=== PATIENT | female | born 1940 | race Caucasian/White ===

== ENCOUNTER 2020-11-14 22:11 | Emergency (ER) | payer MEDICARE, MEDICAID, SELFPAY ==
[2020-11-14 22:34] VITALS: BP 157/76; PULSE 72; RESP 18; TEMP 36.7; O2SAT 95; BMI 23.3
--- NOTE | 2020-11-14 23:15 | W.ED.EXTPRO ---
HPI - Extremity Problem General: Chief complaint: Extremity Problem,Nontraumatic Stated complaint: LEG CRAMPS Time Seen by Provider: 11/14/20 23:09 History of Present Illness: HPI Narrative: Patient complaining about chronic lower leg cramps. They have been worse today. Patient has history of chronic low back pain. Patient did arrive by ambulance. MD Complaint: extremity pain Onset (ago): year(s) Pain Consistency: now resolved Location: left, right and lower extremity Severity scale (1-10): 4 Quality: other (Cramping in the calves at times) Radiation: none Relieving factors: nothing Exacerbating factors: range of motion Associated symptoms: Reports no associated symptoms; Deny chest pain, fever(s) or rash Review of Systems Const: Denies: fever(s), chills or body aches Eyes: Denies: change in vision or blurry vision ENMT: Denies: throat pain or nasal congestion Card: Denies: chest pain or dyspnea on exertion Resp: Denies: dyspnea, productive cough or non-productive cough GI: Denies: abdominal pain, nausea or vomiting Musc: Reports: extremity pain and muscle cramps Skin/Breast: Denies: rash Neuro: Denies: headache(s) Psych: Denies: anxiety or depression Kuldeep/Lymph: Denies: easy bruising PFSH ED PFSH: Family History (Updated 07/03/20 @ 11:39 by Kat Parikh LPN) Mother Heart disease Hypertension Stroke Other Diabetes Physical Exam Const: COMMON NORMALS: no acute distress, average body habitus and patient oriented x3 HENMT: COMMON NORMALS: normocephalic HEAD & SCALP: normal to inspection and normocephalic FACE & SINUS: normal facial exam Eye: COMMON NORMALS: conjunctivae normal GENERAL EYE: appearance normal, both eyes and all related structures CONJUNCTIVA: Yes conjunctivae normal Neck/C-Spine: COMMON NORMALS: no JVD Chest: COMMONS NORMALS: normal inspection of the chest Resp: COMMON NORMALS: normal respiratory effort and clear to auscultation bilaterally AUSCULTATION: clear to auscultation bilaterally Cardio: COMMON NORMALS: no JVD and regular rate RATE: regular rate GI: COMMON NORMALS: Normal to inspection, nondistended, normoactive bowel sounds present Extremity: COMMON NORMALS: normal to inspection and full ROM NARRATIVE EXTREMITY EXAM: Mild bilateral calf tenderness no swelling edema or erythema noted Neuro: COMMON NORMALS: patient oriented x3 Course Vital Signs: Vital signs: Vital Signs Temperature 98.0 F 11/14/20 22:34 Pulse Rate 72 11/14/20 22:34 Respiratory Rate 18 11/14/20 22:34 Blood Pressure 157/76 11/14/20 22:34 Pulse Oximetry 95 11/14/20 22:34 MDM - Extremity (Nontraumatic) MDM Narrative: Medical decision making narrative: Labs look good. Medications help patient's cramps patient will follow up with primary care provider and establish 1 first. Lab Data: Labs: Lab Results 11/14/20 11/14/20 Range/Units 23:20 23:20 WBC 9.9 (4.0-10.0) 10^3/ uL RBC 4.76 (4.1-5.3) 10^6/u L Hgb 14.8 (11.5-15.3) g/dL Hct 46.1 (37.0-47.0) % MCV 96.8 (81-99) fL MCH 31.1 (28.0-34.0) pg MCHC 32.1 (30.0-36.0) g/dL RDW 13.7 (12.1-15.1) % Plt Count 209 (130-400) 10^3/c mm MPV 11.5 H (7.4-10.4) fL Neut % (Auto) 75.9 % Lymph % (Auto) 13.2 % [place] % (Auto) 8.6 % Eos % (Auto) 1.0 % Baso % (Auto) 0.9 % Neut # (Auto) 7.54 (1.8-7.7) 10^3/u L Lymph # (Auto) 1.3 (0.8-4.8) 10^3/u L [place] # (Auto) 0.9 (0.2-0.9) 10^3/u L Eos # (Auto) 0.1 (0.0-0.8) 10^3/u L Baso # (Auto) 0.1 (0.0-0.1) 10^3/u L Nucleated RBC % (a uto) 0 % Nucleated RBCs # 0.0 /100WBC Sodium 136 (136-145) mmol/L Potassium 4.1 (3.5-5.1) mmol/L Chloride 104 (98-107) mmol/L Carbon Dioxide 25 (22-29) mmol/L Anion Gap 11.1 (5-19) BUN 23 (8-23) mg/dL Creatinine 0.8 (0.5-0.9) mg/dL GFR Calculation Not Reportable Glucose 104 (65-115) mg/dL Calculated Osmolal ity 286 (285-295) mOsm/k g Calcium 8.5 (8.5-10.5) mg/dL Discharge Plan Discharge Prescriptions: No Action simvastatin 20 mg tablet 20 mg PO DAILY 90 Days Qty: 90 RF: 3 potassium chloride 10 mEq tablet extended release 10 meq PO DAILY Qty: 30 RF: 1 Coding Level of Care Code ED Loading Unit Operator Powder Charging for Chg Fwd Exam Comprehensive
[2020-11-14] MEDS: cyclobenzaprine 10 mg Tablet 5 MG PO (23:18)
[2020-11-14 23:51] LABS: Basophils # 0.1 10^3/uL (0.0-0.1); Basophils % 0.9 %; Eosinophils # 0.1 10^3/uL (0.0-0.8); Hematocrit 46.1 % (37.0-47.0); Hemoglobin 14.8 g/dL (11.5-15.3); Lymphocytes # 1.3 10^3/uL (0.8-4.8); Lymphocytes % 13.2 %; Mean Corpuscular HGB Conc 32.1 g/dL (30.0-36.0); Mean Corpuscular Hemoglobin 31.1 pg (28.0-34.0); Mean Corpuscular Volume 96.8 fL (81-99); Mean Platelet Volume 11.5 fL (7.4-10.4); Monocytes # 0.9 10^3/uL (0.2-0.9); Monocytes % 8.6 %; Neutrophils # 7.54 10^3/uL (1.8-7.7); Neutrophils % 75.9 %; Nucleated Red Blood Cells % 0 %; Platelet Count 209 10^3/cmm (130-400); Red Blood Count 4.76 10^6/uL (4.1-5.3); Red Cell Distribution Width 13.7 % (12.1-15.1); White Blood Count 9.9 10^3/uL (4.0-10.0)
[2020-11-15 00:30] LABS: Anion Gap 11.1 (5-19); Blood Urea Nitrogen 23 mg/dL (8-23); Calcium 8.5 mg/dL (8.5-10.5); Carbon Dioxide 25 mmol/L (22-29); Chloride 104 mmol/L (98-107); Glucose 104 mg/dL (65-115); Osmolality Calculated 286 mOsm/kg (285-295); Potassium 4.1 mmol/L (3.5-5.1); Sodium 136 mmol/L (136-145)
[2020-11-15 00:45] VITALS: BP 157/76; PULSE 72; RESP 18; TEMP 36.7; O2SAT 95
== END 2020-11-15 00:47 | disposition home or self-care (01) ==
PROVIDERS: Emergency Provider Nurse Practitioner Family; PCP Registered Nurse
DX: R25.2 Cramp and spasm (principal)
CPT/HCPCS: 80048; 85025; 99283

== ENCOUNTER 2021-03-20 03:52 | Inpatient (IN) | payer MEDICARE, SELFPAY ==
[2021-03-20] VITALS (15 sets, daily range): BP systolic 165–207; BP diastolic 68–86; PULSE 47–73; RESP 16–25; TEMP 36.1–36.7; O2SAT 93–96; BMI 16.9
--- NOTE | 2021-03-20 | USCV_ITS ---
LE Arterial Duplex LEFT Carine Cadena Age: 80 Gender: F : 1940 Exam Date: 03/20/2021 05:11 Ordering Phys: Julian Conn MD Technologist: Nataly Edmondson Exam Location: [facility] [place] Indication: PAININ LT FOOT AND LOWER LEG Risk Factors: Unknown Previous Vascular Surgery: STENT ON RT RIGHT LEFT BP: 180.0 / BP: 187.0/ 0 0 Waveform Velocity (cm/s) Velocity (cm/s) Waveform Iliac Prox 60.5 Monophasic Iliac Mid 21.8 Monophasic Iliac Distal 21.8 Monophasic INSIGHT LEADER 32.2 Monophasic POP 35.0 Monophasic FINDINGS LT PROFUNDA HAS FLOW. Low velocity, delayed peaking continuous monophasic waveforms in the left iliac, common femoral and profundofemoral artery. No Doppler flow signals were noted in the superficial femoral artery. Low velocity, monophasic continuous waveform also was noted in the left popliteal artery. No Doppler flow signals in the posterior tibial and dorsalis pedis arteries. CONCLUSIONS 1. Features of possible high-grade stenosis in the proximal left common iliac /aortoiliac segment with a collateral filling in the iliac and common femoral arteries. 2. 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 3. Features of collateral filling the popliteal artery with no Doppler flow signals in the infrapopliteal vessels. RANJAN on the left side was not obtained Dr Vel Contreras MD [facility] (Electronically Signed) Final Date: 20 March 2021 19:03 S
--- NOTE | 2021-03-20 04:26 | ED_ITS ---
HPI - Extremity Problem General: Chief complaint: Extremity Injury, Lower Stated complaint: Leg Cramps\Back Cramps\ Time Seen by Provider: 03/20/21 04:12 Source: patient Mode of arrival: ambulatory Limitations: no limitations History of Present Illness: HPI Narrative: 80-year-old female states she has been having pain in her legs over the last year. States she had increasing pain in her left lower leg and foot. States it is cramping in nature and worse with walking. States improved with rest. Denies any recent injuries denies any fevers. Denies any radiation of her pain. States pain currently while laying down is a 2 out of 10. Associated symptoms: Deny chest pain, fever(s) or rash Review of Systems Const: Denies: fever(s), chills, body aches or change in appetite Eyes: Denies: blurry vision or eye discomfort ENMT: Denies: throat pain or dental pain Card: Denies: chest pain Resp: Denies: dyspnea GI: Denies: abdominal pain, nausea, vomiting or diarrhea : Denies: dysuria Musc: Reports: extremity pain Skin/Breast: Denies: rash Neuro: Denies: headache(s) Psych: Denies: depression Kuldeep/Lymph: Denies: easy bruising All/Imm: Denies: urticaria PFSH ED PFSH: Family History (Updated 07/03/20 @ 11:39 by Kat Parikh RN) Mother Heart disease Hypertension Stroke Other Diabetes Physical Exam Const: COMMON NORMALS: no acute distress, patient oriented x3 and healthy appearing HENMT: COMMON NORMALS: normocephalic and atraumatic HEAD & SCALP: normocephalic and atraumatic Eye: COMMON NORMALS: Equal, round and reactive pupils present and EOMs intact bilaterally PUPIL: Yes Equal, round and reactive pupils present Neck/C-Spine: COMMON NORMALS: full ROM and supple Chest: COMMONS NORMALS: normal inspection of the chest and normal palpation of entire chest wall Resp: COMMON NORMALS: normal respiratory effort, No retractions, No use of accessory muscles and clear to auscultation bilaterally AUSCULTATION: clear to auscultation bilaterally Cardio: COMMON NORMALS: regular rate, regular rhythm and No murmurs present (Cardio) RATE: regular rate RHYTHM: regular rhythm GI: COMMON NORMALS: Normal to inspection, nondistended, normoactive bowel sounds present, Soft to palpation, non-tender and no masses PALPATION: Yes Soft to palpation Extremity: COMMON NORMALS: normal to inspection and full ROM Neuro: COMMON NORMALS: patient oriented x3, moves all extremities and no focal motor deficits Psych: COMMON NORMALS: mental status grossly normal, Normal thought process present and cooperative THOUGHT PROCESS: Normal thought process present Skin: COMMON NORMALS: no rashes or lesions noted and no wounds GENERAL SKIN EXAM: no rashes or lesions noted Course Vital Signs: Vital signs: Vital Signs Temperature 97.7 F 03/20/21 04:00 Pulse Rate 55 L 03/20/21 04:20 Respiratory Rate 16 03/20/21 04:00 Blood Pressure 165/78 03/20/21 04:00 Pulse Oximetry 94 03/20/21 04:00 MDM - Extremity (Nontraumatic) MDM Narrative: Medical decision making narrative: Patient presents here with pain in her left leg was able to get any Doppler pulses in her foot was cold on exam. Did get an arterial duplex study that showed occlusion of her SFA with slight flow in the popliteal the no flow in the posterior tib or dorsalis pedis. I spoke to Dr. Medina of cardiology and will admit on heparin drip and he is likely to take her to the [facility] later today. Discharge Plan Discharge Patient Disposition: Admitted As Inpatient Clinical Impression: Ischemic leg Condition: Stable Coding Level of Care Code ED Electronic Equipment Maint Tech for Narciso Fall Exam Comprehensive
[2021-03-20] MEDS: HYDROcodone-acetaminophen 5-325 mg Tablet 1 TAB PO ×2 (04:31→21:04)
[2021-03-20 06:00] LABS: Basophils # 0.1 10^3/uL (0.0-0.1); Basophils % 0.9 %; Eosinophils # 0.1 10^3/uL (0.0-0.8); Eosinophils % 1.5 %; Hematocrit 44.7 % (37.0-47.0); Hemoglobin 14.2 g/dL (11.5-15.3); Mean Corpuscular HGB Conc 31.8 g/dL (30.0-36.0); Mean Corpuscular Hemoglobin 31.1 pg (28.0-34.0); Mean Corpuscular Volume 97.8 fl (81-99); Mean Platelet Volume 11.6 fL (7.4-10.4); Monocytes # 0.5 10^3/uL (0.2-0.9); Monocytes % 6.2 %; Neutrophils # 5.91 10^3/uL (1.8-7.7); Neutrophils % 67.9 %; Nucleated Red Blood Cells % 0 %; Platelet Count 163 10^3/cmm (130-400); Red Blood Count 4.57 10^6/uL (4.1-5.3); Red Cell Distribution Width 13.5 % (12.1-15.1); White Blood Count 8.7 10^3/uL (4.0-10.0)
[2021-03-20] MEDS: heparin 5,000 unit/mL INJ 1 mL 2400 UNIT IVP (06:03)
[2021-03-20] MEDS: heparin drip 25,000 UNIT/500 ML PREMIX 13.34 UNIT IV (06:05)
[2021-03-20 06:11] LABS: INR 0.95 (0.8-1.2)
--- NOTE | 2021-03-20 06:15 | PM.HP ---
Providers/Chief Complaint Admitting Physician: Leana Islas MD Primary Care Provider: JUAN Hood Chief Complaint: Leg Cramps\Back Cramps\ History of Present Illness Carine Cadena is a 80 year old female who presented to the emergency room with chief complaint of severe pain in her left lower extremity. She has history of peripheral artery disease and severe claudication of the left lower extremity for some time. Last arteriogram was in December 2018 as shown below. The left leg always gives her difficulty but usually it is manageable. She takes muscle relaxers when the pain bothers her. She remains on statin therapy but admits that she only takes aspirin intermittently. She is not chronically on any antiplatelet therapy otherwise. She continues to smoke. This evening the pain in her left foot was severe, much more so than normal. She rated it an 11 out of 10 at its worst. She was unable to get relief from anything and simply touching the foot caused pain. It was also cool. She came to the emergency room for further evaluation. In the ER arterial Doppler showed limited if any flow below the SFA according to verbal report from the ER provider. I do not have the official report currently. She has had some improvement in pain with hydrocodone. She has been started on a heparin drip. Dr. Wilkes has been consulted. He has seen her in the past and performed her previous evaluations and interventions. Pain radiates up into her left hip and back when it is severe. Denies recent fever. Has no recent change and respiratory status with a chronic cough. No chest pain. No recent issues with bleeding. Hospitalist were called for admission. LAST arteriogram from 12/[address] Wilkes Diagnostic Cath Status: Elective Diagnostic Findings No significant disease noted in the Left Main, LAD, Circumflex, or RCA coronary arteries. Coronary angiography shows right dominance. Conclusions Peripheral Procedure Description: Severe life style limiting claudication of both legs and feet more in left than right and foot despite ofoptimization of medical therapy Severe claudication with proximal left external iliac and mid left SFA segment . Gates grade II, category 4:Cori stage III. 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 Previously unsuccessful attempt was made through antegrade approach from right common femoral artery. Today patient was brought in for retrograde popliteal approach.Using retrograde left popliteal approach extensive long distal common left iliac, left external iliac, left common femoral, left ostial to distal superficial femoral artery lesion was crossed with the help Glidewire into the distal aorta. Multiple balloon angioplasties of left external to left distal SFA was performed. Due to extensive plaque burden CSI atherectomy using 2.0 tran was used followed by application of non-drug coated and drug coated balloon angioplasties were performed (please see inventory for detail), proximal external iliac artery was treated with non-drug coated stent. Excellent angiographic result with good flow was observed using pigtail in left common iliac to popliteal artery. Good runoff below the knee was noted. No significant disease noted in the Left Main, LAD, Circumflex, or RCA coronary arteries. Review of Systems Const: Reports: change in weight (Continues to lose weight, down 10-20 pounds from the last time she was w); Denies: fever(s) or chills Eyes: Denies: change in vision ENMT: Denies: throat pain, nasal congestion or epistaxis Card: Denies: chest pain, palpitations or edema Resp: Reports: dyspnea, productive cough, non-productive cough, wheezing and other (At baseline respiratory status); Denies: pain on inspiration or hemoptysis GI: Reports: other (No change in bowel movements); Denies: abdominal pain, nausea, vomiting, hematochezia or melena : Denies: difficulty voiding or hematuria Musc: Reports: back pain and extremity pain Skin/Breast: Denies: pruritus or sores Neuro: Reports: headache(s), numbness in extremities, weakness in extremities and difficulty walking Psych: Denies: anxiety or depression Kuldeep/Lymph: Denies: easy bruising or easy bleeding Medications/Allergies Home Medications Medication Instructions Recorded Confirmed Last Taken Type simvastatin 20 mg tablet 20 mg PO DAILY 90 Days #90 tab 09/22/19 03/20/21 03/19/21 Rx chlorzoxazone 500 mg PO TID PRN 03/20/21 03/20/21 03/19/21 History Allergies Allergy/AdvReac Type Severity Reaction Status Date / Time influenza virus vaccine ts Allergy Unknown Unknown Verified 09/22/19 11:07 2063-2129 (36 mos,up) [From Fluarix] Penicillins Allergy Unknown Unknown Verified 09/22/19 11:07 pneumococcal vaccine Allergy Unknown Unknown Verified 09/22/19 11:07 procaine [From Novocain] Allergy Unknown Unknown Verified 09/22/19 11:07 tuberculin,PPD,multi-puncture Allergy Unknown Unknown Verified 09/22/19 11:07 Additional Medication Information I personally reviewed home medication list and medications received day of admission thus far. Has received hydrocodone for pain and started on heparin drip. PFSH Acute PFSH: Medical History (Updated 03/20/21 @ 07:14 by Leana Islas MD) Abdominal aortic aneurysm (AAA) Indicated in old records here but not notated on last CT images I could find Carotid artery disease History of stroke (~2017) HTN (hypertension) Hyperlipidemia Hypothyroidism Not on chronic medication for this but previously reported Nicotine dependence, cigarettes, with other nicotine-induced disorders PAD (peripheral artery disease) Surgical History (Updated 03/20/21 @ 07:11 by Leana Islas MD) History of colonoscopy (~2018) History of coronary angiogram last [address] Wilkes showed no obstructive disease S/P angiogram of extremity last [address] Wilkes S/P appendectomy S/P insertion of iliac artery stent Family History Mother Heart disease Hypertension Stroke Other Diabetes Social History (Updated 03/20/21 @ 06:24 by Leana Islas MD) Smoking and tobacco status: current every day smoker Alcohol intake: never Substance/Drug Use: never Household members: none Current occupational status: retired Vitals/I&O/Wt Last Vital Signs Temp 97.7 F 03/20/21 04:00 Pulse 55 L 03/20/21 04:20 Resp 16 03/20/21 04:00 BP 165/78 03/20/21 04:00 Pulse Ox 94 03/20/21 04:00 Weight last 48 hrs Weight 47.627 kg Physical Exam Narrative: EXAM NARRATIVE: Constitutional: Awake and alert, thin build, looks to her daughter when asked questions but will answer eventually on her own HEENT: Normocephalic, mild bitemporal wasting, mild scleral injection, nasopharynx is clear, oropharynx with dry membranes, multiple comedones noted to face Neck: Supple Respiratory: Scattered wheeze, prolonged expiratory phase, no retractions or accessory muscle use Cardiovascular: Regular rate and rhythm Abdomen: Soft, nontender, positive bowel sounds Extremities: Left lower extremity is cool to touch compared to the right with no palpable pulses, capillary refill is around 3 to 4 seconds although distal toes are pink, there is some increased vascularity noted laterally on the foot. The left foot is whiter than the left leg. Right lower extremity with pinker color comparatively. Toes, foot and calf on the left side in particular are tender to minimal palpation. I am able to feel a weak pulse in the left groin although it is tender. Not able to palpate popliteal pulse. Radial pulses are 2+, pulse in the right lower extremity 1+ dorsalis pedis Skin: Dry, there is a scabbed wound on the left foot that looks old rather than acute, no other wounds currently noted, has some nicotine staining Neuro: Speech clear, face symmetric Psych: Flat affect Data : 03/20/21 05:50 03/20/21 05:50 Other Labs: According to ER physician: Arterial Doppler of the left lower extremities show obstructed vasculature consisted with critical disease Other data: Prior or outside records reviewed: reviewed previous admissions and last arteriogram notes A&P Assessment and plan (1) Ischemic leg: Status: Acute (2) PAD (peripheral artery disease): Status: Chronic (3) Hyperlipidemia: Status: Chronic Qualifiers: Hyperlipidemia type: unspecified Qualified Code(s): E78.5 - Hyperlipidemia, unspecified (4) HTN (hypertension): Status: Chronic Qualifiers: Hypertension type: essential hypertension Qualified Code(s): I10 - Essential (primary) hypertension (5) Nicotine dependence, cigarettes, with other nicotine-induced disorders: Status: Chronic Additional A&P Information Old records indicate history of hypothyroidism but not on any current treatment Weight loss Inpatient admission Cardiology consultation for possible intervention Keep n.p.o. currently Continue heparin drip Follow-up pending laboratory studies We will add lactic acid, lipid panel and blood cultures Continue statin therapy Add aspirin Ekg Telemetry monitoring for now Monitor blood pressures and add antihypertensives as indicated keeping an eye on heart rate Nicotine patch if needed Briefly discussed smoking status Low volume IV fluids while n.p.o. Zhu catheter for close monitoring of urine output given potential critical nature of current condition Check TSH Check x-ray As needed albuterol PPI for GI prophylaxis particularly while on heparin drip Given peripheral arterial disease and ischemia, no SCDs Currently heparin drip provides appropriate VTE prophylaxis but will need to transition once this is stopped Supportive care otherwise Plans were discussed with patient as well as daughter in the room and both were given an opportunity to ask questions Anticipate disposition home Full code Attestations Medical Necessity Statement*: Anticipated stay greater than two midnights in this patient with critical limb ischemia as described. Receiving heparin drip and will be evaluated for invasive intervention. Coding Level of Care Code Acute Polygraph Operator for Chg Fwd Diagnoses Ischemic leg I99.8 PAD (peripheral artery disease) I73.9 Hyperlipidemia E78.5 Hyperlipidemia type: unspecified HTN (hypertension) I10 Hypertension type: essential hypertension Nicotine dependence, cigarettes, with other nicotine-induced disorders F17.218
[2021-03-20 06:17] LABS: Alanine Aminotransferase 7 U/L (0-33); Albumin Level 3.7 g/dL (3.5-5.2); Alkaline Phosphatase 86 IU/L (35-105); Aspartate Amino Transferase 14 U/L (0-32); Blood Urea Nitrogen 18 mg/dL (8-23); Calcium 8.8 mg/dL (8.5-10.5); Carbon Dioxide 22 mmol/L (22-29); Chloride 105 mmol/L (98-107); Glucose 108 mg/dL (65-115); Osmolality Calculated 288 mOsm/kg (285-295); Sodium 138 mmol/L (136-145); Total Bilirubin 0.2 mg/dL (0.15-1.2); Total Protein 6.7 g/dL (6.6-8.7)
[2021-03-20 06:33] LABS: Partial Thromboplastin Time 34.1 SECONDS (23.9-36.7)
[2021-03-20 06:36] LABS: Chol HDL Ratio 3.17 mg/dL (0.0-4.40); Cholesterol 152 mg/dL (0-200); HDL Cholesterol 48 mg/dL (60-100); LDL Cholesterol Calculated 85 mg/dL (50-129); LDL HDL Ratio 1.77 RATIO (0.00-3.22); Triglycerides 95 mg/dL (0-150)
[2021-03-20] MEDS: sodium chloride 0.9% 1,000 ML 75 ML IV (07:00)
[2021-03-20 07:24] LABS: Lactic Sepsis W/Reflex 0.7 mmol/L (0.5-2.2)
--- NOTE | 2021-03-20 07:24 | XR_ITS ---
WS: [id number] Portable AP upright chest, 03/20/2021 Clinical Data: smoker, weight loss, cough Comparison: None. Findings: No nodules, masses or effusions are seen. The heart is normal. The pulmonary vascularity is not increased. No pneumonia or pneumothorax is seen. There is slight increase in density in the left upper lobe. The aortic arch and descending thoracic aorta show calcification and mild tortuosity. Th e diaphragms are flattened There are clips in the region of the gastroesophageal junction. XR/XR chest 1V portable [id number] Impression: 1. Slight increase in density in left apex and recommend CT scan of the chest. 2. Atherosclerosis and hyperinflation.
--- NOTE | 2021-03-20 07:24 | PC.NURSE ---
Received report assumed care, no changes noted from report. Daughter at bedside. Continue to monitor.
--- NOTE | 2021-03-20 07:27 | ECG_ITS ---
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 Measurements Intervals [place] Rate: 57 P: 66 NE: 188 QRS: 74 QRSD: 98 T: 58 QT: 458 QTc: 449 Interpretive Statements SINUS BRADYCARDIA INCOMPLETE RIGHT BUNDLE BRANCH BLOCK [90+ ms QRS DURATION, TERMINAL R IN V1/V2, 40+ ms S IN I/aVL/V4/V5/V6] Compared to ECG 07/05/2017 13:16:43 No significant changes Electronically Signed On 03-20-2021 19:41:45 CDT by Vel Contreras M.D. [email or web address]
--- NOTE | 2021-03-20 08:07 | PC.PHAR ---
pts family member verified pts medications-pts family states the pt is suppose to be taking other medications but is unsure what they were-pts family states the pt dced the meds 3-4 months ago-notes are made in the pharmacy comments-pts family states the pt doesnt have any inhalers and doesnt take any other otc medications besides 81mg aspirin
[2021-03-20] MEDS: atorvastatin 40 mg Tablet 20 MG PO (09:04)
[2021-03-20] MEDS: aspirin 325 mg EC Tablet PO (09:05)
[2021-03-20] MEDS: pantoprazole DR 40 mg Tablet PO (09:05)
[2021-03-20] MEDS: docusate sodium 100 mg Capsule PO ×2 (09:05→21:03)
[2021-03-20] MEDS: amlodipine 5 mg Tablet PO (09:05)
--- NOTE | 2021-03-20 10:14 | PC.NURSE ---
Daughter at bedside. No acute distress. Fluids and Heparin infusing
[2021-03-20 10:40] LABS: Add Urine Microscopic? YES; Bilirubin Urine Neg (Negative); Blood Urine Neg (Negative); Glucose Urine UA Norm (Normal); Ketones Urine Negative (Negative); Leukocyte Esterase Urine Trace (Negative); Nitrate Urine Negative (Negative); Protein Urine Neg (Negative); Urine Appearance Clear (CLEAR); Urine Color Yellow (Yellow); Urobilinogen Urine Norm (Negative); pH Urine 5 (5-7)
[2021-03-20 10:41] LABS: Add Urine Culture? No; Bacteria Urine 1+ /hpf; Squamous Epithelial Cell Urine 15-25 /hpf (0-5)
[2021-03-20 12:24] LABS: INR 0.96 (0.8-1.2)
--- NOTE | 2021-03-20 12:27 | PC.NURSE ---
report received by Tiffany LEPE
[2021-03-20 12:31] LABS: SARS Covid-2 Antigen Negative (Negative)
[2021-03-20 12:48] LABS: Partial Thromboplastin Time 60.6 SECONDS (23.9-36.7)
--- NOTE | 2021-03-20 13:05 | PC.NURSE ---
pt placed on awake overnight monitor and remains on monitor.
--- NOTE | 2021-03-20 13:29 | P.CONIM_ITS ---
Providers/Reason For Consult Consulting Physician/Specialty*: Interventional cardiology Reason for Consult*: Critical limb ischemia with painful left leg Attending Physician: Philip Wright MD Primary Care Provider: JUAN Hood History of Present Illness History of Present Illness Carine Cadena is a 80 year old female past medical history significant for hypertension hyperlipidemia severe peripheral arterial disease stroke AAA for worsening of left lower extremity pain aches to the extent that occasionally it happens at rest, patient was admitted last night with critical limb ischemia. Patient underwent intervention in 2019 for lifestyle limiting claudication at that time left iliac arteries and SFA were fixed. Patient leg appeared to be warm, it is of normal color however painful whenever she tried to walk. At rest occasionally she feels cramps, she has intact motor and sensory skills. No pulses palpable in the left lower extremities including popliteal anterior and posterior tibial. Review of Systems Const: Reports: change in weight (Continues to lose weight, down 10-20 pounds from the last time she was w); Denies: fever(s), chills, body aches or change in appetite Eyes: Denies: change in vision, blurry vision or eye discomfort ENMT: Denies: throat pain, dental pain, nasal congestion or epistaxis Card: Denies: chest pain, palpitations or edema Resp: Reports: dyspnea, productive cough, non-productive cough, wheezing and other (At baseline respiratory status); Denies: pain on inspiration or hemoptysis GI: Reports: other (No change in bowel movements); Denies: abdominal pain, nausea, vomiting, diarrhea, hematochezia or melena : Denies: difficulty voiding, dysuria or hematuria Musc: Reports: back pain and extremity pain Skin/Breast: Denies: rash, pruritus or sores Neuro: Reports: headache(s), numbness in extremities, weakness in extremities and difficulty walking Psych: Denies: anxiety or depression Kuldeep/Lymph: Denies: easy bruising or easy bleeding All/Imm: Denies: urticaria Meds/Allergies Home Medications and Allergies Home Medications Medication Instructions Recorded Confirmed Last Taken Type simvastatin 20 mg tablet 20 mg PO DAILY 90 Days #90 tab 09/22/19 03/20/21 03/19/21 Rx aspirin [Aspir-81] 81 mg PO QAM 03/20/21 03/20/21 Unknown History chlorzoxazone 500 mg PO TID PRN 03/20/21 03/20/21 03/19/21 History Allergies Allergy/AdvReac Type Severity Reaction Status Date / Time influenza virus vaccine ts Allergy Unknown Unknown Verified 03/20/21 08:07 [id number] (36 mos,up) [From Fluarix] Penicillins Allergy Unknown Unknown Verified 03/20/21 08:07 pneumococcal vaccine Allergy Unknown Unknown Verified 03/20/21 08:07 procaine [From Novocain] Allergy Unknown Unknown Verified 03/20/21 08:07 tuberculin,PPD,multi-puncture Allergy Unknown Unknown Verified 03/20/21 08:07 Current Medications Current Medications Generic Name Dose Route Start Last Admin Trade Name Freq PRN Reason Stop Dose Admin Amlodipine Besylate 5 mg 03/20/21 09:00 03/20/21 09:05 Amlodipine 5 Mg Tablet PO 5 mg DAILY ASTRID Administration Aspirin 325 mg 03/20/21 09:00 03/20/21 09:05 Aspirin 325 Mg Ec Tablet PO 325 mg DAILY ASTRID Administration Atorvastatin Calcium 20 mg 03/20/21 09:00 03/20/21 09:04 Atorvastatin 40 Mg Tablet PO 20 mg DAILY ASTRID Administration Docusate Sodium 100 mg 03/20/21 09:00 03/20/21 09:05 Docusate Sodium 100 Mg Capsule PO 100 mg BID ASTRID Administration Heparin Sodium/Sodium Chloride 25,000 unit in 500 mls @ 13.336 mls/hr 03/20/21 05:55 03/20/21 06:05 Heparin Drip IV 03/21/21 05:54 14 unit/kg/hr .Q24H STA 13.34 mls/hr Administration 14 UNIT/KG/HR Sodium Chloride 1,000 mls @ 75 mls/hr 03/20/21 06:45 03/20/21 07:00 Sodium Chloride 0.9% IV 75 mls/hr .[id number] ASTRID Administration Pantoprazole Sodium 40 mg 03/20/21 09:00 03/20/21 09:[address] 40 Mg Tablet PO 40 mg DAILY ASTRID Administration Additional Medication Information I personally reviewed home medication list and medications received day of admission thus far. Has received hydrocodone for pain and started on heparin drip. PFSH Acute PFSH: Medical History (Updated 03/20/21 @ 19:40 by Griselda Wilkes MD) Abdominal aortic aneurysm (AAA) Indicated in old records here but not notated on last CT images I could find Carotid artery disease History of stroke (~2017) HTN (hypertension) Hyperlipidemia Hypothyroidism Not on chronic medication for this but previously reported Nicotine dependence, cigarettes, with other nicotine-induced disorders PAD (peripheral artery disease) Surgical History (Updated 03/20/21 @ 07:11 by Leana Islas MD) History of colonoscopy (~2019) History of coronary angiogram last [address] Wilkes showed no obstructive disease S/P angiogram of extremity last [address] Wilkes S/P appendectomy S/P insertion of iliac artery stent Family History Mother Heart disease Hypertension Stroke Other Diabetes Social History (Updated 03/20/21 @ 06:24 by Leana Islas MD) Smoking and tobacco status: current every day smoker Alcohol intake: never Substance/Drug Use: never Household members: none Current occupational status: retired Vitals/I&O/Wt Last Vital Signs Temp 97.7 F 03/20/21 04:00 Pulse 54 L 03/20/21 13:18 Resp 20 H 03/20/21 13:18 BP 177/76 03/20/21 13:18 Pulse Ox 95 03/20/21 13:18 03/19/21 03/20/21 03/20/21 22:59 06:59 14:59 Output Total 800 / 800 Balance -800 / -800 Weight last 48 hrs Weight 105 lb Physical Exam Narrative: EXAM NARRATIVE: GENERAL: Patient is alert, awake and oriented x3. NECK: No jugular vein distension. HEENT: No cyanosis. No icterus. No pallor. HEART: Regular S1 and S2. No murmur, rub or gallop. LUNGS: Clear to auscultate bilaterally. ABDOMEN: Soft, nontender and nondistended. Positive bowel sounds. No guarding, rebound or tenderness. CENTRAL NERVOUS SYSTEM: Grossly nonfocal. EXTREMITIES: Lower extremities without edema bilaterally. Pulses not palpable in the lower extremities, both dorsalis pedis and posterior tibial. Left foot appear to be of normal color warm, motor and sensory intact Urinary Catheter Management^: Zhu: Cath Placed During This Visit: yes Urinary Catheter Date of Insertion: 03/20/21 Urinary Catheter Time of Insertion: 07:22 Data Micro: Micro: Microbiology 03/20/21 06:55 Blood Culture - Pr eliminary Blood [facility] 03/20/21 06:47 Blood Culture - Pr eliminary Blood [facility] A&P Assessment and plan (1) Critical lower limb ischemia: Patient has left leg pain at rest and upon walking, she has intact sensory and motor. Vascular study suggestive of mid to distal SFA and popliteal artery occlusion, some flow below the knee was going through collaterals, left foot appeared to be warm, does not appear to be limb threatening ischemia at this point however in the face of worsening of claudication and critical limb ischemia we will proceed with peripheral angiogram. At this point continue heparin pain management keep the foot warm. Continue to monitor for sensory and motor deficit. Patient and family by bedside explained all risk benefit and alternative for the procedure he understand risk for major minor bleed, urgent emergent vascular surgery, she understand the risk for amputation, she understan ds risk for acute limb ischemia leading to limb amputation. She understand the risk for stroke hematoma infection. She would like to proceed with it. We will proceed with peripheral angiogram tomorrow. Status: Acute (2) HTN (hypertension): Continue current medicine Status: Chronic Qualifiers: Hypertension type: essential hypertension Qualified Code(s): I10 - Essential (primary) hypertension (3) Abdominal aortic aneurysm (AAA): Stable. Continue current regimen Status: Acute Qualifiers: Presence of rupture: without rupture Qualified Code(s): I71.4 - Abdominal aortic aneurysm, without rupture Consult Attestations Medical Necessity Statement: I am expecting her stay to cross more than 2 midnights. 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
--- NOTE | 2021-03-20 20:57 | PM.MISC ---
Miscellaneous Note Note: 80-year-old female admitted for left lower extremity pain. left lower extremity peripheral arterial disease. Cardiology has been Discomfort thought secondary to limb claudication currently on heparin drip. Seen and examined pain mostly controlled. Plan for peripheral angiogram tomorrow.
[2021-03-20] MEDS: sennosides 8.6 mg Tablet 17.2 MG PO (21:03)
[2021-03-21] VITALS (135 sets, daily range): BP systolic 108–196; BP diastolic 59–100; PULSE 46–107; RESP 4–23; TEMP 36.6; O2SAT 76–97
[2021-03-21] MEDS: sodium chloride 0.9% 1,000 ML 75 ML IV (00:14)
[2021-03-21] MEDS: hyDRALAzine 10 mg Tablet PO ×2 (05:08→19:34)
[2021-03-21] MEDS: HYDROcodone-acetaminophen 5-325 mg Tablet 1 TAB PO (05:08)
[2021-03-21 05:16] LABS: Basophils # 0.1 10^3/uL (0.0-0.1); Basophils % 0.9 %; Eosinophils # 0.2 10^3/uL (0.0-0.8); Eosinophils % 1.9 %; Hematocrit 42.3 % (37.0-47.0); Hemoglobin 13.9 g/dL (11.5-15.3); Lymphocytes # 2.1 10^3/uL (0.8-4.8); Lymphocytes % 26.5 %; Mean Corpuscular HGB Conc 32.9 g/dL (30.0-36.0); Mean Corpuscular Hemoglobin 30.9 pg (28.0-34.0); Mean Platelet Volume 11.7 fL (7.4-10.4); Monocytes # 0.6 10^3/uL (0.2-0.9); Monocytes % 8.1 %; Neutrophils # 4.94 10^3/uL (1.8-7.7); Neutrophils % 62.3 %; Nucleated Red Blood Cells % 0 %; Platelet Count 182 10^3/cmm (130-400); Red Cell Distribution Width 13.2 % (12.1-15.1); White Blood Count 7.9 10^3/uL (4.0-10.0)
[2021-03-21 05:50] LABS: Anion Gap 10.7 (5-19); Blood Urea Nitrogen 12 mg/dL (8-23); Calcium 8.7 mg/dL (8.5-10.5); Carbon Dioxide 26 mmol/L (22-29); Chloride 106 mmol/L (98-107); Glucose 89 mg/dL (65-115); Osmolality Calculated 287 mOsm/kg (285-295); Phosphorus 2.9 mg/dL (2.5-4.5); Potassium 3.7 mmol/L (3.5-5.1); Sodium 139 mmol/L (136-145)
[2021-03-21] MEDS: morphine 4 mg/mL SDV 1 mL 2 MG IVP ×2 (08:38→21:56)
[2021-03-21 09:31] LABS: Partial Thromboplastin Time 61.7 SECONDS (23.9-36.7)
--- NOTE | 2021-03-21 10:01 | W.PM.OPSUD ---
Surgery/Procedure H&P Update DATE OF PROCEDURE: March 21, 2021 DATE H&P PERFORMED: 03/20/21 H&P UPDATE INFORMATION: I have reviewed H&P completed within last 30 days, I have examined patient prior to procedure and No changes to prior documentation PREOP DIAGNOSIS: Critical limb ischemia PATIENT REASSESSED PRIOR TO SEDATION, WITH NO CHANGE NOTED: Yes PHYSICAL EXAM: alert, oriented x 3, clear to auscultation bilaterally and regular rate & rhythm AIRWAY EVAL/ANESTHESIA PLAN: ASA II, Risks, benefits & alternatives of sedation and/or procedure discussed and Patient agrees to continue as planned ADDITIONAL INFORMATION: Peripheral angiogram/FAST FOOD TEAM MEMBER/atherectomy if indicated.
--- NOTE | 2021-03-21 10:33 | PC.CHAP ---
Pastoral Care Encounter/Spiritual Assessment Type of Contact [] Declined drug worker visit [] Patient/Family/Request visit [] Outpatient visit [] Follow-up visit [] Physician referral [] Code/Alert [x] Routine visit [] Staff referral [] Actively dying [] Patient sleeping [] Family support [] [] Out of room [] Palliative care [] [x] Receiving care in room [] Pre-surgical visit [] Trauma [x] Long length of stay [] ICU visit [] Other: Relational/Emotional Strength [] Patient feels connected with others/family/visitors/staff [] Distress [] Loneliness/isolation [] Abandonment Spirituality of Patient [x] Person of Camille [] Attends Baptism of their Camille [x] Believes in Prayer [] Reads Bible or Bahai materials [] There are Spiritual issues to be addressed Chief Engineer Production Interventions [x] Prayer [x] Active listening [x] Non-anxious presence [x] Spiritual/emotional support [] Crisis/trauma care [x] Spiritual counseling [] Bereavement support [] Provided bereavement packet [] Provided Bible/devotional materials [] Provided toy/stuffed animal, coloring book to patient or family member [] Provided Communion [] Anointing/[place] [] Salvation [x] Completed spiritual assessment [] Other: Impact on Illness or Injury [] Angry [] Fearful [x] Anxious [] Often cries [] Exhaustion [x] Unable to work [] Unable to attend muslim [] Unable to walk/stand [] Unable to read [] Unable to drive [] Unable to eat/drink [] Unable to sleep [] Unable to be with family [] Patient intubated [] Other: Summary leg and back pain feels good and wants to go home Time spent with patient 10 mins
--- NOTE | 2021-03-21 10:53 | XACV_ITS ---
Ht: 168 cm Wt: 48 kg BSA: 1.48 m2 Any Known Allergies: Lauren Gender: Female : 1940 Exam Type: Invasive Peripheral Vascular Procedure(s): Procedure Description: Peripheral Cath Diagnostic Procedure Procedure Description: Abdominal aortic angiography Procedure Description: Iliac arterial aortic angiography Procedure Description: Lower extremities' angiography Procedure Description: Peripheral vascular Intervention Procedure Description: PV Balloon Procedure Description: PV Stent Procedure Description: PV Atherectomy Exam Priority: Routine Lower Extremity Interventional Findings Intervention: Through right common femoral approach with the help of diagnostic catheter after somewhat difficulty we were able to cross through ostial and proximal creek common left iliac lesion. Mid to distal chronically occluded stent in the left common iliac and external iliac was also crossed. We was unable to cross through the SFA with the help of seeker and Glidewire into the tibioperoneal trunk. Multiple balloon angioplasty of the left common iliac and external iliac was performed resulted in good flow but tight highly calcified ostial left common iliac lesion was evident. We then exchanged the Glidewire through seeker with the Viper wire. Using 2.0 CSI crown we were able to perform atherectomy throughout the SFA into popliteal vessel. We then exchange Viper wire with Glidewire multiple balloon angioplasty of the SFA was performed. Excellent flow in the SFA and below the knee was confirmed. Highly calcified tight ostial left common iliac artery lesion was then treated with covered stent. Excellent angiographic result with good flow was noted from common iliac to below the knee with 3 good vessel runoff. . Conclusions Reason for peripheral angiogram and angioplasty: Critical limb ischemia with worsening of pain Aortogram: Ectatic abdominal aorta without significant aneurysm Left common iliac chronically occluded, left external iliac chronically occluded, left internal artery, left common iliac chronically occluded, left SFA chronically occluded, left profunda femoral patent filled through collaterals. Left popliteal chronically occluded. Left tibioperoneal trunk anterior posterior tibial and peroneal artery not well visualized initially but possibly patent and fills through some collaterals . Right common iliac, external iliac patent. Right profunda patent. Right SFA occluded at the ostium and throughout its course until it reconstituted popliteal, right popliteal tibioperoneal trunk arteries patent. Below the knee further anterior posterior and peroneal artery on the right side were not ready realize possibly due to sluggish contrast. . Recommendations 1-Return to inpatient for close monitoring and routine cath care2-Risk factor modification for secondary prevention3-Statin and aspirin 81 mg life--long, if tolerated4-Patient was pre-loaded with 300 mg of Plavix, continue Plavix 75mg p.o. daily for at least 3 months. 5-Continue optimal medical management. Consider percutaneous angioplasty of right SFA per lifestyle limiting claudication6-Follow up with Dr. Wilkes in four weeks and your primary care in 10 days. Hemodynamic Data Phase:Rest AO : 145.0 / 45.0 ( 80.0 ) @ 9:25:00 AM 163.0 / 52.0 ( 90.0 ) @ 9:45:00 AM 219.0 / 90.0 ( 147.0 ) @ 9:57:00 AM 119.0 / 65.0 ( 73.0 ) @ 10:24:00 AM Access Site Site: Right Femoral artery Sheath Size: 6 Fr Hemost... Method: Suture Hemost... Success: Successful Procedure Details Findings Pre-Procedure Time Out. Identified patient by full name and date of as verbalized by the patient/guarantor. Does the consent match the physician's order: Yes. Accurate & Complete Informed Consent: Yes. Inpatient/Outpatient History & Physical on Chart: Yes. Visualize and Verify Site with Patient/Guarantor: N/A. Relevant Radiology Images available: Yes. Pre-op teaching completed and patient verbalized understanding. The risks, benefits, and alternatives of sedation and/or procedure were discussed by physician. The patient agrees to continue. Procedure started. Correct patient, site and procedure confirmed by cath team. Current diagnosis: PVD. PERRLA. Strong, equal hand tip inserter bilaterally. Lungs clear x 5 lobes. IV Site on Arrival: 20 gauge in the right forearm. IV Fluids: 0.9% NaCl at KVO. 900 mL infused prior to electroplating laborer. Pre Procedural Pulses: bilateral posterior tibial was Doppled. Pre Procedural Pulses: bilateral dorsalis pedis was Doppled. Oxygen started at 2liters/min via nasal canula. bilateral groins was prepped with chloroprep then draped in the usual sterile fashion. Physician notified. Physician arrived. Equipment: Peripheral. Cardiac Cath Pack. ACIST Manifold Kit Model BT 2000. Heparinized Saline (2 units/mL), 1000 mL bag. Patient's family in the xray waiting room due to current Covid restrictions. Will update throughout the procedure. Alice Powell RN circulating with Reji Anderson RN, [facility]. Hemodynamic formulas in Rest were re-calculated based on hemoglobin value from 03/21/2021 12:00:00 AM. Physician scrubbed in. Immediate Pre-Procedure Time Out. Correct Patient: Yes; Correct Procedure: Yes; Correct Site: Yes; Correct Patient Position: Yes; Correct Supplies: Yes; Dried Flammable Prep: Yes; Blood Products Available: N/A;. Lidocaine 1% infiltrated to the right groin. Arterial access obtained with micropuncture set. hand injection performed through the sheath. Right common femoral selected and arteriogram with runoff performed @ 10 mL/sec for a total of 30 mL. Side port of sheath attached to Normal Saline flush at KVO to maintain patency. A 5 Fr UF catheter in over the glidewire. Pigtail postioned above the bifurcation of the iliacs. Aortagram performed @ 10 mL/sec for a total of 20 mL. Add inventory: 0.35 Torquer. catheter out. Seeker inserted and advanced to the left iliac. wire out. contrast hand injected through the seeker catheter. sheath flushed with heparnized saline. Inflation number : 1 A AB ARMADA 35 OTW [id number] was prepped and advanced across the Superficial Femoral, Left , then inflated to 8 ROZ for 2:10 seconds. Inflation number: 2 The AB ARMADA 35 OTW [id number] was reinflated across the Superficial Femoral, Left, to 8 ROZ for 2:04 seconds. ACT drawn. Results 105 seconds. Therapeutic limits - pre-heparin administration 90-150 seconds and monitoring heparin during a vascular procedure >250 seconds. Inflation number: 3 The AB ARMADA 35 OTW [id number] was reinflated across the Superficial Femoral, Left, to 5 ROZ for 1:09 seconds. Balloon out over wire. 6 yi Flexor sheath in over the glidewire. Flexor sheath pulled back. Angiogram at 10 for 10 performed of the left iliac. Seeker support catheter in over the glidewireto the TP trunk. Glidewire out. Hand injection of the TP trunk performed. Viper wire in, seeker out. Orbital atherectomy of the left SFA performed. Anesthesia called at the request of Dr. Wilkes for patient sedation. Orbital atherectomy of the left SFA performed. Orbital atherectomy of the left SFA performed. Atherectomy device out, seeker in. Viper wire out, glidewire in. Seeker out. Inflation number : 4 A AB Boelus 35 [employer] [place] Catheter [id number] was prepped and advanced across the Superficial Femoral, Left , then inflated to 8 ROZ for 2:01 seconds. Balloon pulled back. Inflation number: 5 The AB Boelus 35 [employer] [place] Catheter [id number] was reinflated across the Superficial Femoral, Left, to 10 ROZ for 1:07 seconds. Balloon pulled back. Inflation number: 6 The AB Boelus 35 [employer] [place] Catheter [id number] was reinflated across the Superficial Femoral, Left, to 10 ROZ for 2:05 seconds. Balloon out over the wire. Left superficial femoral selected and arteriogram with runoff performed @ 10 mL/sec for a total of 30 mL. 6fr Flexor upsized to a 7fr Flexor over the wire. ACT drawn. Results 160 seconds. Therapeutic limits - pre-heparin administration 90-150 seconds and monitoring heparin during a vascular procedure >250 seconds. Inflation number : 1 A Bard Lutonix 035 6.0x40mm was prepped and advanced across the Ostial Common Iliac, Left , then inflated to 10 ROZ for 1:09 seconds. Inflation number: 2 The Bard Lutonix 035 6.0x40mm was reinflated across the Ostial Common Iliac, Left, to 10 ROZ for 0:36 seconds. stent balloon out over the glidewire. DSA performed at 5 for 10 of the left lower extremity. Runoff of the left lower extremity performed @ 10 mL/sec for a total of 30 mL. Sheath upsized to a 7 Fr short sheath. A Suture was successful obtaining hemostatsis at the Right Femoral artery insertion site. Physician scrubbed out. Sheath(s) sutured into position with 2-0 silk and sterile 4x4's and Op-site applied over the site. No oozing or signs and symptoms of hematoma noted. Arterial sheath flushed and connected to tranducer and pressure bag with heparinized saline. Post Procedure: Pulses reassessed and unchanged. PERRLA. Strong, equal hand tip inserter bilaterally. No VTE prophylaxis required. Medication's Wasted: Lidocaine 1% = 4 mL. Medication's Wasted: Heparin = 3000 Units. Total IV fluids: 153 mL. 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 Complications: none. Estimated blood loss: 5mL-10mL. Procedure completed. Patient transferred by bed to 1st floor. Vital chart was stopped. Procedure Medications Start: 10:03 AM Stop: 10:03 AM Medication: Benadryl Amount: 50 mg Route: I.V. Start: 10:04 AM Stop: 10:04 AM Medication: Versed Amount: 1 mg Route: I.V. Start: 10:04 AM Stop: 10:04 AM Medication: Fentanyl Amount: 50 mcg Route: I.V. Start: 10:35 AM Stop: 10:35 AM Medication: Versed Amount: 1 mg Route: I.V. Start: 10:36 AM Stop: 10:36 AM Medication: Fentanyl Amount: 50 mcg Route: I.V. Start: 11:05 AM Stop: 11:05 AM Medication: Hydralazine Amount: 10 mg Route: I.V. Start: 11:09 AM Stop: 11:09 AM Medication: Heparin Amount: 5000 units Route: I.V. Start: 11:16 AM Stop: 11:16 AM Medication: Versed Amount: 1 mg Route: I.V. Start: 11:26 AM Stop: 11:26 AM Medication: Fentanyl Amount: 50 mcg Route: I.V. Start: 11:35 AM Stop: 11:35 AM Medication: Versed Amount: 1 mg Route: I.V. Start: 11:35 AM Stop: 11:35 AM Medication: Fentanyl Amount: 50 mcg Route: I.V. Start: 11:41 AM Stop: 11:41 AM Medication: Nitrogylcerin Amount: 500 mcg Route: I.A. Start: 11:52 AM Stop: 11:52 AM Medication: Heparin Amount: 3000 units Route: I.V. I, the attending physician, have reviewed and verified all procedure medications. Yes, all medications given per verbal order History/Risk Factors Hypertension: Yes Dyslipidemia: Yes Peripheral Arterial Disease (PAD): Yes Obesity: No Renal Disease: No Tobacco Use: Current/Recent(w/in 1 year) Prior Interventions PCI: No CABG: No Valve Surgery: No Report Signatures Finalized by Griselda Wilkes MD on 04/07/2021 10:13 PM
--- NOTE | 2021-03-21 12:20 | PC.NURSE ---
Pt returned from greenskeeper laborer at 1215. Pt arrived with sheath in right groin connected to a pressure bag. Drsg dry and intact no hematoma, swelling, or bleeding noted. Will continue to monitor.
--- NOTE | 2021-03-21 13:04 | P.PN_ITS ---
Subjective Subjective: Interval history: Patient underwent peripheral angiogram to right common iliac approach she was noted to have chronically occluded mid left common iliac, external iliac, common femoral, SFA with collateral continuation of the popliteal. After somewhat difficulty were able to cross the left common iliac there was severe in-stent restenosis. We were also able to cross through left external iliac, common femoral and SFA all the way to the peroneal artery. Multiple balloon angioplasty, CSI atherectomy were performed in the left SFA however multiple balloon angioplasty and covered stent placement was performed in the left common iliac. Excellent angiographic result with good flow was established from left common iliac all the way to the left foot with good two-vessel runoff. Both pulses were palpable after the intervention. During the same angiogram it was learned that patient also has occluded right SFA for which she will be brought back again through retrograde approach. Medications: Reviewed: Yes Vitals/I&O/Wt Last Vital Signs Temp 97.9 F 03/21/21 04:00 Pulse 67 03/21/21 12:15 Resp 20 H 03/21/21 12:15 BP 182/70 03/21/21 12:15 Pulse Ox 96 03/21/21 12:15 03/20/21 03/21/21 03/21/21 22:59 06:59 14:59 Intake Total 1300 / 1300 Output Total 2100 / 2900 Balance 1300 / 500 -2100 / -1600 Weight last 48 hrs Weight 95 lb 11.2 oz Weight 105 lb Physical Exam Narrative: EXAM NARRATIVE: GENERAL: Patient is arousable but sleepy after the procedure. NECK: No jugular vein distension. HEENT: No cyanosis. No icterus. No pallor. HEART: Regular S1 and S2. No murmur, rub or gallop. LUNGS: Clear to auscultate bilaterally. ABDOMEN: Soft, nontender and nondistended. Positive bowel sounds. No guarding, rebound or tenderness. CENTRAL NERVOUS SYSTEM: Grossly nonfocal. EXTREMITIES: Lower extremities without edema bilaterally. Pulses palpable both anterior posterior tibial in the left foot Const: COMMON NORMALS: alert Resp: COMMON NORMALS: clear to auscultation bilaterally AUSCULTATION: clear to auscultation bilaterally Neuro: SENSORIUM/ORIENTATION: Yes alert Urinary Catheter Management^: Zhu: Cath Placed During This Visit: yes Reason for Continuing Indwelling Catheter: Not indwelling catheter Urinary Catheter Date of Insertion: 03/20/21 Urinary Catheter Time of Insertion: 07:22 Data : 03/21/21 04:46 03/21/21 04:46 Micro: Microbiology 03/20/21 06:55 Blood Culture - Preliminary Blood NEGATIVE TO DATE 03/20/21 06:47 Blood Culture - Preliminary Blood NEGATIVE TO DATE A&P Assessment and plan (1) Critical lower limb ischemia: Status post left common iliac artery stenting balloon angioplasty, status post CSI atherectomy and balloon angioplasty of left common iliac stent into left SFA. Excellent angiographic result with good flow all the way to the foot was achieved. Patient was loaded with 300 mg of Plavix continue Plavix aspirin for next 1 month at least. She will return to [facility] for post-cath care. Status: Acute (2) HTN (hypertension): Will optimize medicine to control blood pressure as it is moderately elevated. Status: Chronic Qualifiers: Hypertension type: essential hypertension Qualified Code(s): I10 - Essential (primary) hypertension (3) Abdominal aortic aneurysm (AAA): Stable. Continue current regimen Status: Acute Qualifiers: Presence of rupture: without rupture Qualified Code(s): I71.4 - Abdominal aortic aneurysm, without rupture Attestations Medical Necessity Statement*: Patient require continuation hospitalization for above defined care. 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
[2021-03-21] MEDS: clopidogrel 300 mg Tablet PO (13:56)
[2021-03-21] MEDS: sodium chloride 0.9% 1,000 ML 100 ML IV (13:56)
[2021-03-21] MEDS: ALPRAZolam 0.5 mg Tablet 0.25 MG PO ×2 (15:28→20:31)
[2021-03-21 16:15] LABS: Partial Thromboplastin Time 118.9 SECONDS (23.9-36.7)
--- NOTE | 2021-03-21 18:18 | PM.PN ---
Subjective Subjective: Interval history: 80 year old female who presented to the emergency room with chief complaint of severe pain in her left lower extremity. She has history of peripheral artery disease and severe claudication of the left lower extremity for some time. Last arteriogram was in December 2018 as shown below. The left leg always gives her difficulty but usually it is manageable. She takes muscle relaxers when the pain bothers her. She remains on statin therapy but admits that she only takes aspirin intermittently. She is not chronically on any antiplatelet therapy otherwise. She continues to smoke. This evening the pain in her left foot was severe, much more so than normal. She rated it an 11 out of 10 at its worst. She was unable to get relief from anything and simply touching the foot caused pain. It was also cool. She came to the emergency room for further evaluation. In the ER arterial Doppler showed limited if any flow below the SFA according to verbal report from the ER provider. I do not have the official report currently. She has had some improvement in pain with hydrocodone. She has been started on a heparin drip. Dr. Wilkes has been consulted. He has seen her in the past and performed her previous evaluations and interventions. Pain radiates up into her left hip and back when it is severe. Denies recent fever. Has no recent change and respiratory status with a chronic cough. No chest pain. Upon admission to hospital patient was seen by interventional cardiology. On 03/21 patient was taken for a peripheral angiogram during which time stent was placed. 03/21 Seen post procedure, very drowsy. Medications: Reviewed: Yes Vitals/I&O/Wt Last Vital Signs Temp 97.9 F 03/21/21 04:00 Pulse 69 03/21/21 16:45 Resp 20 H 03/21/21 12:15 BP 156/75 03/21/21 16:45 Pulse Ox 92 03/21/21 16:45 03/21/21 03/21/21 03/21/21 06:59 14:59 22:59 Intake Total 100 / 100 Output Total 2100 / 2900 1600 / 1600 Balance -2100 / -1600 -1500 / -1500 Weight last 48 hrs Weight 43.409 kg Weight 47.627 kg Physical Exam Narrative: EXAM NARRATIVE: General-alert however drowsy HEENT-grossly unremarkable CVS -NST Chest- nonlabored respiration Abdomen- non-distended Extremities- peripheral pulses dopplered Urinary Catheter Management^: Zhu: Cath Placed During This Visit: yes Reason for Continuing Indwelling Catheter: Not indwelling catheter Urinary Catheter Date of Insertion: 03/20/21 Urinary Catheter Time of Insertion: 07:22 Data : 03/21/21 04:46 03/21/21 04:46 Micro: Microbiology 03/20/21 06:55 Blood Culture - Preliminary Blood NEGATIVE TO DATE 03/20/21 06:47 Blood Culture - Preliminary Blood NEGATIVE TO DATE A&P Assessment and plan (1) Ischemic leg: S/p peripheral angiogram Post angio protocol ordered Cardiology on board S/p Plavix 300 mg Po x 1 Aspirin 325 mg PO daily Heparin drip Lipitor 20 mg PO daily Monitor peripheral pulses Continue IVF for now Status: Acute (2) PAD (peripheral artery disease): as noted above Status: Chronic (3) Hyperlipidemia: Lipitor 20 mg PO qhs Status: Chronic Qualifiers: Hyperlipidemia type: unspecified Qualified Code(s): E78.5 - Hyperlipidemia, unspecified (4) HTN (hypertension): Norvasc 5 mg PO daily Hydralazine 10 mg PO QID Status: Chronic Qualifiers: Hypertension type: essential hypertension Qualified Code(s): I10 - Essential (primary) hypertension (5) Nicotine dependence, cigarettes, with other nicotine-induced disorders: Status: Chronic Attestations Medical Necessity Statement*: Will require further hospitalization for management of post angiogram care. 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
--- NOTE | 2021-03-21 19:59 | PC.NURSE ---
Pt lying in bed resting with eyes open talking to staff. Drsg site to right groin dry and intact. No hematoma or swelling noted. Pt had no c/o pain or discomfort at the present time. Bedside report given to ROBERTH Moe.
[2021-03-21 20:44] LABS: Partial Thromboplastin Time 32.5 SECONDS (23.9-36.7)
[2021-03-21] MEDS: sennosides 8.6 mg Tablet 17.2 MG PO (21:01)
[2021-03-21] MEDS: amlodipine 5 mg Tablet PO (21:28)
[2021-03-22] VITALS (32 sets, daily range): BP systolic 114–180; BP diastolic 58–97; PULSE 73–107; RESP 16–18; TEMP 36.7; O2SAT 95
[2021-03-22 04:59] LABS: Basophils % 0.3 %; Eosinophils # 0.1 10^3/uL (0.0-0.8); Eosinophils % 0.5 %; Hematocrit 44.2 % (37.0-47.0); Hemoglobin 14.6 g/dL (11.5-15.3); Lymphocytes # 1.2 10^3/uL (0.8-4.8); Lymphocytes % 10.8 %; Mean Corpuscular Hemoglobin 31.4 pg (28.0-34.0); Mean Corpuscular Volume 95.1 fl (81-99); Mean Platelet Volume 11.4 fL (7.4-10.4); Monocytes # 0.9 10^3/uL (0.2-0.9); Monocytes % 8.2 %; Neutrophils # 9.21 10^3/uL (1.8-7.7); Neutrophils % 79.9 %; Nucleated Red Blood Cells % 0 %; Platelet Count 183 10^3/cmm (130-400); Red Blood Count 4.65 10^6/uL (4.1-5.3); Red Cell Distribution Width 13.4 % (12.1-15.1); White Blood Count 11.5 10^3/uL (4.0-10.0)
[2021-03-22 05:21] LABS: Blood Urea Nitrogen 10 mg/dL (8-23); Calcium 8.8 mg/dL (8.5-10.5); Carbon Dioxide 22 mmol/L (22-29); Chloride 98 mmol/L (98-107); Glucose 103 mg/dL (65-115); Osmolality Calculated 277 mOsm/kg (285-295); Sodium 134 mmol/L (136-145)
[2021-03-22 05:28] LABS: Anion Gap 17.5 (5-19); Potassium 3.5 mmol/L (3.5-5.1)
--- NOTE | 2021-03-22 07:01 | PC.NURSE ---
03/21, Around 2150: PTT therapeutic. Pulled sheath to patients right groin. Held pressure for 20 minutes. No hematoma noted, distal pulses palpable. No drainage noted. Dressed with 4x4 and transparent dressing. Vitals stable. Patient tolerated procedure well.
[2021-03-22] MEDS: aspirin 325 mg EC Tablet PO (08:45)
[2021-03-22] MEDS: docusate sodium 100 mg Capsule PO (08:45)
[2021-03-22] MEDS: nicotine 14 mg Patch 1 PATCH TRANSDERMA (08:45)
[2021-03-22] MEDS: atorvastatin 40 mg Tablet 20 MG PO (08:45)
[2021-03-22] MEDS: pantoprazole DR 40 mg Tablet PO (08:45)
[2021-03-22] MEDS: amlodipine 5 mg Tablet PO (08:45)
--- NOTE | 2021-03-22 12:39 | PC.NURSE ---
Discharge Note Patient discharged to home via private vehicle ([employer] family unable to come and get her) accompanied by self. 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 A & O, no C/o of pain or needs at this time. Mobile pharmacy medications and/or prescriptions provided. Belongings/home medications returned.
--- NOTE | 2021-03-22 18:14 | P.DS_ITS ---
Discharge Providers Date of Admission: 03/20/21 07:43 Date of Discharge: March 22, 2021 Attending Provider at Admission: Leana Isals MD Attending Provider at Discharge: Amaury Chapman Primary Care Provider: JUAN Hood Diagnoses at Discharge Discharge Diagnosis (1) Critical lower limb ischemia: Status: Acute (2) HTN (hypertension): Status: Chronic Qualifiers: Hypertension type: essential hypertension Qualified Code(s): I10 - Essential (primary) hypertension (3) Abdominal aortic aneurysm (AAA): Status: Acute Permanent problem details: Indicated in old records here but not notated on last CT images I could find Qualifiers: Presence of rupture: without rupture Qualified Code(s): I71.4 - Abdominal aortic aneurysm, without rupture Reason for Visit Reason for Visit: Leg Cramps\Back Cramps\ Hospital Course Hospital Course 80 year old female who presented to the emergency room with chief complaint of severe pain in her left lower extremity. She has history of peripheral artery disease and severe claudication of the left lower extremity for some time. Last arteriogram was in December 2018 as shown below. The left leg always gives her difficulty but usually it is manageable. She takes muscle relaxers when the pain bothers her. She remains on statin therapy but admits that she only takes aspirin intermittently. She is not chronically on any antiplatelet therapy otherwise. She continues to smoke. This evening the pain in her left foot was severe, much more so than normal. She rated it an 11 out of 10 at its worst. She was unable to get relief from anything and simply touching the foot caused pain. It was also cool. She came to the emergency room for further evaluation. In the ER arterial Doppler showed limited if any flow below the SFA according to verbal report from the ER provider. I do not have the official report currently. She has had some improvement in pain with hydrocodone. She has been started on a heparin drip. Dr. Wilkes has been consulted. He has seen her in the past and performed her previous evaluations and interventions. Pain radiates up into her left hip and back when it is severe. Denies recent fever. Has no recent change and respiratory status with a chronic cough. No chest pain. Upon admission to hospital patient was seen by interventional cardiology. On 03/21 patient underwent peripheral angiogram to right common iliac approach she was noted to have chronically occluded mid left common iliac, external iliac, common femoral, SFA with collateral continuation of the popliteal. After somewhat difficulty were able to cross the left common iliac there was severe in-stent restenosis. We were also able to cross through left external iliac, common femoral and SFA all the way to the peroneal artery. Multiple balloon angioplasty, CSI atherectomy were performed in the left SFA however multiple balloon angioplasty and covered stent placement was performed in the left common iliac. Excellent angiographic result with good flow was established from left common iliac all the way to the left foot with good two-vessel runoff. Both pulses were palpable after the intervention. During the same angiogram it was learned that patient also has occluded right SFA for which she will be brought back again through retrograde approach. Patient was started on plavix. Cleared for discharge by cardiology. Outpatient follow up was arranged. Physical Exam Narrative: EXAM NARRATIVE: General-alert. awake, dressed wanting to go home HEENT-grossly unremarkable CVS -NST Chest- nonlabored respiration Abdomen- non-distended Extremities- peripheral pulses dopplered Urinary Catheter Management^: Zhu: Cath Placed During This Visit: yes Reason for Continuing Indwelling Catheter: Acute Urinary Retention or Obstruction Urinary Catheter Date of Insertion: 03/20/21 Urinary Catheter Time of Insertion: 07:22 Discharge Data Data Completed and Pending: Completed Studies During Hospitalization Category Date Time Status XR chest 1V janette ble [id number] Routine Exams 03/20/21 07:24 [place] [id number] Rout ine Ultrasound 03/20/21 Completed Pending at discharge Category Date Time Status [employer] request for service Routin e Exams 03/21/21 10:53 Taken Blood Culture Sta t Lab 03/20/21 06:55 Results Vitals: Last Vital Signs Temp 98.1 F 03/22/21 10:19 Pulse 73 03/22/21 10:19 Resp 16 03/22/21 10:19 BP 114/68 03/22/21 10:19 Pulse Ox 95 03/22/21 10:19 Discharge Plan Discharge Patient Disposition: Home Condition: Stable Prescriptions: New amlodipine 5 mg Tablet 5 mg PO DAILY Qty: 30 RF: 0 Plavix 75 mg tablet 75 mg PO DAILY Qty: 90 RF: 0 Continued simvastatin 20 mg tablet 20 mg PO DAILY 90 Days Qty: 90 RF: 3 chlorzoxazone 500 mg tablet 500 mg PO TID PRN (Reason: Muscle Spasm) RF: 0 aspirin 81 mg Tablet,Delayed Release (Dr/Ec) 81 mg PO QAM RF: 0 Discharge Orders: Discharge Order (Routine); Ordered 03/22/21 Ordered By: Amaury Chapman Referrals: Estephania Young FNP [Primary Care Provider] - 03/28/21 10:30 am (You have a hospital followup with JUAN Hood at [facility] on , March 28 at 10:30) Griselda Wilkes MD [Physician] - 4-7 days Discharge Diet: Advance as tolerated Discharge Activity: Increase activity as tolerated Patient Instructions: Amlodipine (By mouth), Clopidogrel (By mouth), Peripheral Vascular Stent Placement (DC), Peripheral Vascular Angioplasty (DC), Opioid Safety Discharge Attestations Time Spent in Discharge Care*: greater than 30 min Specific Discharge Activities: educating patient, discussing with pcp/other providers, discussing with business case analyst/social workers/dc planners, documenting/other paperwork and evaluating patient/reviewing data Status at Discharge: Cognitive status at discharge: cognitively intact , Behavioral status at discharge: cooperative , Functional status at discharge: independent ambulation Overall status at discharge: patient is back to [facility] Quality Metrics Clinical Quality Measures During this hospital stay, did patient experience: None Coding Level of Care Code Acute Chg FW DC note Diagnoses Critical lower limb ischemia I70.229 HTN (hypertension) I10 Hypertension type: essential hypertension Abdominal aortic aneurysm (AAA) I71.4 Presence of rupture: without rupture
--- NOTE | 2021-03-27 11:48 | PC.SOCIAL ---
discharge follow up call made. spoke with pts daughterSuyapa. Patient wasn't able to turkey picker medications due to $8.00 copay. Pharmacy called and copay was paid so patient can turkey picker medications. Daughter is aware of this. Follow up appointment made for pt with Dr. Wilkes and date and time given to daughter. Daughter is also aware of follow up appointment with Chester Young, tomorrow.
== END 2021-03-22 12:39 | disposition home or self-care (01) | DRG 271 ==
LOC: ER 06:31 → ER IP 07:59 → CSU 14:19
PROVIDERS: Internal Medicine Cardiovascular Disease; Admitting Provider Hospitalist; Emergency Provider Emergency Medicine; PCP Registered Nurse; Visit Provider Hospitalist
PROC: 04CL3ZZ Extirpation of Matter from Left Femoral Artery, Percutaneous Approach (ICD-10-PCS; principal; 2021-03-21 10:00)
PROC: 04CL3ZZ Extirpation of Matter from Left Femoral Artery, Percutaneous Approach (ICD-10-PCS; 2021-03-21 10:00)
DX: I70.222 Atherosclerosis of native arteries of extremities with rest pain, left leg (principal); T82.856A Stenosis of peripheral vascular stent, initial encounter; I70.92 Chronic total occlusion of artery of the extremities; Z68.1 Body mass index [BMI] 19.9 or less, adult; I71.4 Abdominal aortic aneurysm, without rupture; I25.10 Atherosclerotic heart disease of native coronary artery without angina pectoris; E78.5 Hyperlipidemia, unspecified; F17.210 Nicotine dependence, cigarettes, uncomplicated; R63.4 Abnormal weight loss; Z82.49 Family history of ischemic heart disease and other diseases of the circulatory system; Z86.73 Personal history of transient ischemic attack (TIA), and cerebral infarction without residual deficits; Z95.820 Peripheral vascular angioplasty status with implants and grafts; Z79.82 Long term (current) use of aspirin
CPT/HCPCS: 36415; 37220; 37225; 51702; 71045; 75625; 75710; 80048; 80053; 80061; 81001; 83605; 83735; 84100; 84443; 85025; 85347; 85610; 85730; 87040; 87426; 93005; 93926; 96361; 96374; 99291; C1724; C1725; C1769; C1887; C1894; C2623; J1644; J2270; J7030; Q9967

== ENCOUNTER 2021-04-05 02:27 | Emergency (ER) | payer MEDICARE, SELFPAY ==
--- NOTE | 2021-04-05 02:31 | ECG_ITS ---
[facility] Test Date: 2021-04-05 Pat Name: Carine Cadena Department: Room: Gender: Female Tools Administrator: : 1940 Requested By: Julian Conn Order Number: [id number] Isak MD: Eryn Sprague M.D. Measurements Intervals [place] Rate: 73 P: 64 VT: 180 QRS: 43 QRSD: 101 T: 47 QT: 391 QTc: 433 Interpretive Statements SINUS RHYTHM WITH OCCASIONAL SUPRAVENTRICULAR PREMATURE COMPLEXES INCOMPLETE RIGHT BUNDLE BRANCH BLOCK [90+ ms QRS DURATION, TERMINAL R IN V1/V2, 40+ ms S IN I/aVL/V4/V5/V6] Compared to ECG 03/20/2021 07:51:11 Sinus bradycardia no longer present Electronically Signed On 04-05-2021 18:32:07 CDT by Eryn Sprague M.D. [email or web address] [email or web address] [email or web address].[employer]/store/[id number] f
--- NOTE | 2021-04-05 02:31 | XRR_ITS ---
PROCEDURE INFORMATION: Exam: XR Chest Exam date and time: 04/05/2021 2:31 AM Age: 80 years old Clinical indication: Chest pressure; Prior surgery; Surgery type: Angiogram. Iliac arterial stent. ; Patient HX: Substernal chest pain. ; Additional info: Cp TECHNIQUE: Imaging protocol: XR of the chest. Views: 1 view. COMPARISON: CR XR chest 1V portable [id number] 03/20/2021 7:23 AM FINDINGS: Lungs: Stable right calcified hilar nodes and/or mediastinal nodes and/or lung nodules consistent with old granulomatous disease. Pleural spaces: Unremarkable. No pleural effusion. No pneumothorax. Heart/Mediastinum: Unremarkable. No cardiomegaly. Bones/joints: Unremarkable. Other findings: Stable postoperative changes over the gastroesophageal junction. XR/XR chest 1V portable [id number] IMPRESSION: No acute findings.
[2021-04-05 02:35] VITALS: BP 129/61; PULSE 74; RESP 18; TEMP 36.7; O2SAT 96; BMI 21.7
--- NOTE | 2021-04-05 02:38 | ED_ITS ---
HPI - Chest Pain General: Chief Complaint: Chest Pain Stated Complaint: chest pain Time Seen by Provider: 04/05/21 02:27 Source: patient Mode of arrival: ambulatory Limitations: no limitations History of Present Illness: HPI narrative: 80-year-old female states she been having chest pain for last 2 to 3 days. States been a sharp pain in the center of her chest. Denies any radiation of pain. Denies any shortness of breath. Denies any cough or fever. She denies any vomiting or diarrhea. Denies any worsening improving factors. States her pain is currently a 2 out of 10. Associated symptoms: Deny abdominal pain, dyspnea, fever(s), nausea or vomiting Review of Systems Const: Denies: fever(s), chills, body aches or change in appetite Eyes: Denies: blurry vision or eye discomfort ENMT: Denies: throat pain or dental pain Card: Reports: chest pain Resp: Denies: dyspnea GI: Denies: abdominal pain, nausea, vomiting or diarrhea : Denies: dysuria Musc: Denies: neck pain or back pain Skin/Breast: Denies: rash Neuro: Denies: headache(s) Psych: Denies: depression Kuldeep/Lymph: Denies: easy bruising All/Imm: Denies: urticaria PFSH ED PFSH: Medical History Abdominal aortic aneurysm (AAA) Indicated in old records here but not notated on last CT images I could find Carotid artery disease History of stroke (~2017) HTN (hypertension) Hyperlipidemia Hypothyroidism Not on chronic medication for this but previously reported Nicotine dependence, cigarettes, with other nicotine-induced disorders PAD (peripheral artery disease) Surgical History History of colonoscopy (~2019) History of coronary angiogram last [address] Wilkes showed no obstructive disease S/P angiogram of extremity last [address] Wilkes S/P appendectomy S/P insertion of iliac artery stent Family History Mother Heart disease Hypertension Stroke Other Diabetes Social History Smoking and tobacco status: current every day smoker Alcohol intake: never Household members: none Current occupational status: retired Physical Exam Const: COMMON NORMALS: no acute distress, patient oriented x3 and healthy appearing HENMT: COMMON NORMALS: normocephalic and atraumatic HEAD & SCALP: normocephalic and atraumatic Eye: COMMON NORMALS: Equal, round and reactive pupils present and EOMs intact bilaterally PUPIL: Yes Equal, round and reactive pupils present Neck/C-Spine: COMMON NORMALS: full ROM and supple Chest: COMMONS NORMALS: normal inspection of the chest and normal palpation of entire chest wall Resp: COMMON NORMALS: normal respiratory effort, No retractions, No use of accessory muscles and clear to auscultation bilaterally AUSCULTATION: clear to auscultation bilaterally Cardio: COMMON NORMALS: regular rate, regular rhythm and No murmurs present (Cardio) RATE: regular rate RHYTHM: regular rhythm GI: COMMON NORMALS: Normal to inspection, nondistended, normoactive bowel sounds present, Soft to palpation, non-tender and no masses PALPATION: Yes Soft to palpation Extremity: COMMON NORMALS: normal to inspection and full ROM Neuro: COMMON NORMALS: patient oriented x3, moves all extremities and no focal motor deficits Psych: COMMON NORMALS: mental status grossly normal, Normal thought process present and cooperative THOUGHT PROCESS: Normal thought process present Skin: COMMON NORMALS: no rashes or lesions noted and no wounds GENERAL SKIN EXAM: no rashes or lesions noted Course Vital Signs: Vital signs: Vital Signs Temperature 98.1 F 04/05/21 02:35 Pulse Rate 75 04/05/21 02:53 Respiratory Rate 16 04/05/21 02:53 Blood Pressure 129/61 04/05/21 02:53 Pulse Oximetry 96 04/05/21 02:53 MDM - Chest Pain MDM Narrative: Medical decision making narrative: Patient presents for chest pain that is atypical in nature. Her initial and repeat troponins are negative. She has no signs of acute coronary syndrome. She has no signs of pulmonary embolism or aortic dissection. She is stable for discharge is to follow-up with PCP and return if worsening. Lab Data: Labs: Lab Results 04/05/21 04/05/21 04/05/21 Range/Units 02:50 02:50 02:50 WBC 10.5 H (4.0-10.0) 10^3/ uL RBC 3.86 L (4.1-5.3) 10^6/u L Hgb 12.2 (11.5-15.3) g/dL Hct 37.1 (37.0-47.0) % MCV 96.1 (81-99) fl MCH 31.6 (28.0-34.0) pg MCHC 32.9 (30.0-36.0) g/dL RDW 13.9 (12.1-15.1) % Plt Count 217 (130-400) 10^3/c mm MPV 11.1 H (7.4-10.4) fL Neut % (Auto) 75.2 % Lymph % (Auto) 15.5 % [place] % (Auto) 6.9 % Eos % (Auto) 1.5 % Baso % (Auto) 0.5 % Neut # (Auto) 7.90 H (1.8-7.7) 10^3/u L Lymph # (Auto) 1.6 (0.8-4.8) 10^3/u L [place] # (Auto) 0.7 (0.2-0.9) 10^3/u L Eos # (Auto) 0.2 (0.0-0.8) 10^3/u L Baso # (Auto) 0.1 (0.0-0.1) 10^3/u L Nucleated RBC % (a uto) 0 % Nucleated RBCs # 0.0 /100WBC PT 13.30 (12.1-14.9) SECO NDS INR 0.98 (0.8-1.2) Sodium 136 (136-145) mmol/L Potassium 3.4 L (3.5-5.1) mmol/L Chloride 102 (98-107) mmol/L Carbon Dioxide 24 (22-29) mmol/L Anion Gap 13.4 (5-19) BUN 16 (8-23) mg/dL Creatinine 0.6 (0.5-0.9) mg/dL GFR Calculation Not Reportable Glucose 120 H (65-115) mg/dL Calculated Osmolal ity 284 L (285-295) mOsm/k g Calcium 8.2 L (8.5-10.5) mg/dL Total Bilirubin 0.2 (0.15-1.2) mg/dL AST 10 (0-32) U/L ALT 6 (0-33) U/L Alkaline Phosphata se 89 (35-105) IU/L Troponin T Baselin e (0-10) ng/L Troponin T 120 Min [place] (0-10) ng/L Delta Troponin T (0-10) ABS# Total Protein 5.6 L (6.6-8.7) g/dL Albumin 3.4 L (3.5-5.2) g/dL Globulin 2.2 (1.3-4.6) g/dL 04/05/21 04/05/21 Range/Units 02:50 04:25 WBC (4.0-10.0) 10^3/ uL RBC (4.1-5.3) 10^6/u L Hgb (11.5-15.3) g/dL Hct (37.0-47.0) % MCV (81-99) fl MCH (28.0-34.0) pg MCHC (30.0-36.0) g/dL RDW (12.1-15.1) % Plt Count (130-400) 10^3/c mm MPV (7.4-10.4) fL Neut % (Auto) % Lymph % (Auto) % [place] % (Auto) % Eos % (Auto) % Baso % (Auto) % Neut # (Auto) (1.8-7.7) 10^3/u L Lymph # (Auto) (0.8-4.8) 10^3/u L [place] # (Auto) (0.2-0.9) 10^3/u L Eos # (Auto) (0.0-0.8) 10^3/u L Baso # (Auto) (0.0-0.1) 10^3/u L Nucleated RBC % (a uto) % Nucleated RBCs # /100WBC PT (12.1-14.9) SECO NDS INR (0.8-1.2) Sodium (136-145) mmol/L Potassium (3.5-5.1) mmol/L Chloride (98-107) mmol/L Carbon Dioxide (22-29) mmol/L Anion Gap (5-19) BUN (8-23) mg/dL Creatinine (0.5-0.9) mg/dL GFR Calculation Glucose (65-115) mg/dL Calculated Osmolal ity (285-295) mOsm/k g Calcium (8.5-10.5) mg/dL Total Bilirubin (0.15-1.2) mg/dL AST (0-32) U/L ALT (0-33) U/L Alkaline Phosphata se (35-105) IU/L Troponin T Baselin e 10 (0-10) ng/L Troponin T 120 Min [place] 9.80 (0-10) ng/L Delta Troponin T -0.20 L (0-10) ABS# Total Protein (6.6-8.7) g/dL Albumin (3.5-5.2) g/dL Globulin (1.3-4.6) g/dL Imaging Data^: CXR: Attestation: I personally reviewed and interpreted this imaging study as follows: Radiologist's impression: [address] [address] XRay Report Signed Patient: Carine Cadena Unit #: [id number] : 1940 Age/Sex: 80 / F ADM Date: 04/05/21 Loc: ER Room/Bed: Attending Dr: Ordering Provider/Ordering MD: Julian Conn MD Date of Service: 04/05/21 Procedure(s): XR chest 1V portable [id number] Accession Number(s): [id number] Report Number: [id number] PROCEDURE INFORMATION: Exam: XR Chest Exam date and time: 04/05/2021 2:31 AM Age: 80 years old Clinical indication: Chest pressure; Prior surgery; Surgery type: Angiogram. Iliac arterial stent. ; Patient HX: Substernal chest pain. ; Additional info: Cp TECHNIQUE: Imaging protocol: XR of the chest. Views: 1 view. COMPARISON: CR XR chest 1V portable [id number] 03/20/2021 7:23 AM FINDINGS: Lungs: Stable right calcified hilar nodes and/or mediastinal nodes and/or lung nodules consistent with old granulomatous disease. Pleural spaces: Unremarkable. No pleural effusion. No pneumothorax. Heart/Mediastinum: Unremarkable. No cardiomegaly. Bones/joints: Unremarkable. Other findings: Stable postoperative changes over the gastroesophageal junction. XR/XR chest 1V portable [id number] IMPRESSION: No acute findings. Dictated By: Se Okeefe MD Signed By: Se Okeefe MD Signed Date/Time: 04/05/21421 DD/ 0 EKG Data^: EKG 1: Attestation: I personally reviewed and interpreted this EKG as follows: EKG interpretation date: 04/05/21 EKG interpretation time: 03:02 Interpretation: nsr hr [address] or t wave abnormalities qrs 101 qtc 417 Discharge Plan Discharge Patient Disposition: Home Clinical Impression: Chest pain Qualifiers: Chest pain type: unspecified Qualified Code(s): R07.9 - Chest pain, unspecified Condition: Stable Prescriptions: No Action simvastatin 20 mg tablet 20 mg PO DAILY 90 Days Qty: 90 RF: 3 chlorzoxazone 500 mg tablet 500 mg PO TID PRN (Reason: Muscle Spasm) RF: 0 aspirin 81 mg Tablet,Delayed Release (Dr/Ec) 81 mg PO QAM RF: 0 amlodipine 5 mg Tablet 5 mg PO DAILY Qty: 30 RF: 0 Plavix 75 mg tablet 75 mg PO DAILY Qty: 90 RF: 0 Discharge Orders: Discharge ED (Routine); Ordered 04/05/21 Ordered By: Julian Conn Referrals: Estephania Young FNP [Primary Care Provider] - 1-3 days Discharge Diet: Advance as tolerated Discharge Activity: Resume usual activity Patient Instructions: Chest Pain (ED) Coding Level of Care Code ED Line Pilot for Chg Fwd Exam Comprehensive
[2021-04-05 02:53] VITALS: BP 129/61; PULSE 75; RESP 16; O2SAT 96
[2021-04-05 02:56] LABS: Basophils # 0.1 10^3/uL (0.0-0.1); Basophils % 0.5 %; Eosinophils # 0.2 10^3/uL (0.0-0.8); Eosinophils % 1.5 %; Hematocrit 37.1 % (37.0-47.0); Hemoglobin 12.2 g/dL (11.5-15.3); Lymphocytes # 1.6 10^3/uL (0.8-4.8); Lymphocytes % 15.5 %; Mean Corpuscular HGB Conc 32.9 g/dL (30.0-36.0); Mean Corpuscular Hemoglobin 31.6 pg (28.0-34.0); Mean Corpuscular Volume 96.1 fl (81-99); Mean Platelet Volume 11.1 fL (7.4-10.4); Monocytes # 0.7 10^3/uL (0.2-0.9); Monocytes % 6.9 %; Neutrophils % 75.2 %; Nucleated Red Blood Cells % 0 %; Platelet Count 217 10^3/cmm (130-400); Red Blood Count 3.86 10^6/uL (4.1-5.3); Red Cell Distribution Width 13.9 % (12.1-15.1); White Blood Count 10.5 10^3/uL (4.0-10.0)
[2021-04-05 03:14] LABS: Alanine Aminotransferase 6 U/L (0-33); Albumin Level 3.4 g/dL (3.5-5.2); Alkaline Phosphatase 89 IU/L (35-105); Anion Gap 13.4 (5-19); Aspartate Amino Transferase 10 U/L (0-32); Blood Urea Nitrogen 16 mg/dL (8-23); Calcium 8.2 mg/dL (8.5-10.5); Carbon Dioxide 24 mmol/L (22-29); Chloride 102 mmol/L (98-107); Globulin 2.2 g/dL (1.3-4.6); Glucose 120 mg/dL (65-115); Osmolality Calculated 284 mOsm/kg (285-295); Potassium 3.4 mmol/L (3.5-5.1); Sodium 136 mmol/L (136-145); Total Bilirubin 0.2 mg/dL (0.15-1.2); Total Protein 5.6 g/dL (6.6-8.7)
[2021-04-05 03:17] LABS: Troponin(5th) Baseline 10 ng/L (0-10)
[2021-04-05 03:18] LABS: INR 0.98 (0.8-1.2)
[2021-04-05 05:23] VITALS: BP 131/55; PULSE 60; RESP 20; TEMP 36.7; O2SAT 95
== END 2021-04-05 05:10 | disposition home or self-care (01) ==
PROVIDERS: Emergency Provider Emergency Medicine; PCP Registered Nurse
DX: R07.9 Chest pain, unspecified (principal); Z79.82 Long term (current) use of aspirin; Z79.02 Long term (current) use of antithrombotics/antiplatelets; Z86.73 Personal history of transient ischemic attack (TIA), and cerebral infarction without residual deficits; I10 Essential (primary) hypertension; E78.5 Hyperlipidemia, unspecified; F17.210 Nicotine dependence, cigarettes, uncomplicated
CPT/HCPCS: 71045; 80053; 84484; 85025; 85610; 93005; 99283

== ENCOUNTER → 2021-07-15 14:58 | Outpatient (BNVA) | payer MEDICARE, SELFPAY | PROVIDERS: PCP Registered Nurse; Visit Provider Registered Nurse | DX: I10 Essential (primary) hypertension (principal); E53.8 Deficiency of other specified B group vitamins; E55.9 Vitamin D deficiency, unspecified; E78.5 Hyperlipidemia, unspecified; I73.9 Peripheral vascular disease, unspecified; E03.9 Hypothyroidism, unspecified; R41.0 Disorientation, unspecified | CPT/HCPCS: 80053; 80061; 81000; 82306; 82607; 84443 ==

== ENCOUNTER 2021-08-07 14:40 | Emergency (ER) | payer MEDICARE, SELFPAY ==
[2021-08-07 15:28] VITALS: BP 185/76; PULSE 64; RESP 18; TEMP 36.7; O2SAT 96; BMI 18.2
--- NOTE | 2021-08-07 15:32 | ED_ITS ---
HPI - Back Pain/Injury General: Chief Complaint: Back Pain/Injury Stated Complaint: Back Pain Time Seen by Provider: 08/07/21 15:29 History of Present Illness: HPI Narrative: Patient complains of chronic low back pain joint pains. Been going on for years no significant change from previously. Patient has no prescription to take for currently. MD elicited complaint: back pain Pertinent past history: prior back pain Onset (ago): year(s) Timing: constant Severity: moderate Quality: aching Location: lumbar spine and thoracic spine Relieving factors: immobilization Context: other (Pain is stiffness with moving get up out of a chair and walking.) Associated symptoms: Reports no associated symptoms; Deny abdominal pain, chills, fever(s), nausea or vomiting Review of Systems Const: Denies: fever(s), chills or body aches Eyes: Denies: change in vision or blurry vision ENMT: Denies: throat pain or nasal congestion Card: Denies: chest pain or dyspnea on exertion Resp: Denies: dyspnea, productive cough or non-productive cough GI: Denies: abdominal pain, nausea or vomiting Musc: Reports: back pain (Chronic) and joint pain (Stiffness) Skin/Breast: Denies: rash Neuro: Denies: headache(s) Psych: Denies: anxiety or depression Kuldeep/Lymph: Denies: easy bruising PFSH ED PFSH: Medical History (Updated 08/07/21 @ 15:31 by JUAN hTomas) Abdominal aortic aneurysm (AAA) Indicated in old records here but not notated on last CT images I could find Carotid artery disease Chronic lumbosacral pain History of stroke (~2017) HTN (hypertension) Hyperlipidemia Hypothyroidism Nicotine dependence, cigarettes, with other nicotine-induced disorders PAD (peripheral artery disease) Surgical History History of colonoscopy (~2018) History of coronary angiogram last [address] Wilkes showed no obstructive disease S/P angiogram of extremity last [address] Wilkes S/P appendectomy S/P insertion of iliac artery stent Family History Mother Heart disease Hypertension Stroke Other Diabetes Social History Smoking and tobacco status: current every day smoker Alcohol intake: never Household members: none Current occupational status: retired Physical Exam Narrative: EXAM NARRATIVE: Patient is well-known to me. I took care of her for years over [facility]. Const: COMMON NORMALS: no acute distress GENERAL APPEARANCE: cooperative Resp: AUSCULTATION: diminished lung sounds (Throughout patient does not breathe deep) Cardio: COMMON NORMALS: regular rate RATE: regular rate Back/Pelvis: THORACIC SPINE/UPPER BACK: Yes normal to inspection LUMBAR SPINE/LOWER BACK: Yes normal to inspection and Yes paraspinal muscle tenderness Discharge Plan Discharge Patient Disposition: Home Clinical Impression: Chronic back pain greater than 3 months duration Condition: Stable Prescriptions: New Celebrex 100 mg capsule 200 mg PO BID Qty: 20 RF: 0 No Action amlodipine 10 mg tablet 10 mg PO DAILY Qty: 30 RF: 0 chlorzoxazone 500 mg tablet 500 mg PO BID 30 Days Qty: 60 RF: 0 Plavix 75 mg tablet 75 mg PO DAILY Qty: 30 RF: 0 simvastatin 20 mg tablet 20 mg PO DAILY 30 Days Qty: 30 RF: 1 cholecalciferol (vitamin D3) 1,250 mcg (50,000 unit) capsule 50,000 unit PO .once a week Qty: 4 RF: 0 levothyroxine 50 mcg tablet See Rx Instructions .ROUTE .COMPLEX Qty: 30 RF: 0 Discharge Orders: Discharge ED (Routine); Ordered 08/07/21 Ordered By: Cristobal Orlando Referrals: Estephania Young, [employer]KER [Primary Care Provider] - Discharge Diet: Usual diet Discharge Activity: Increase activity as tolerated Patient Instructions: Back Pain (ED) Activity Restrictions/Additional Instructions: Follow-up with medical provider as directed. Take medications as prescribed. Return to the ER or your medical provider if condition worsens. Please read and understand discharge instructions. If any questions ask please. Coding Level of Care Code ED Tailings Worker for Narciso Fall
[2021-08-07 15:33] VITALS: BP 185/76; PULSE 64; RESP 14; O2SAT 96
== END 2021-08-07 15:42 | disposition home or self-care (01) ==
PROVIDERS: Emergency Provider Nurse Practitioner Family; PCP Registered Nurse
DX: M54.50 Low back pain, unspecified (principal); G89.29 Other chronic pain; I71.4 Abdominal aortic aneurysm, without rupture; I25.10 Atherosclerotic heart disease of native coronary artery without angina pectoris; I10 Essential (primary) hypertension; E78.5 Hyperlipidemia, unspecified; E03.9 Hypothyroidism, unspecified; I73.9 Peripheral vascular disease, unspecified; F17.200 Nicotine dependence, unspecified, uncomplicated; Z95.820 Peripheral vascular angioplasty status with implants and grafts; Z86.73 Personal history of transient ischemic attack (TIA), and cerebral infarction without residual deficits; Z79.02 Long term (current) use of antithrombotics/antiplatelets
CPT/HCPCS: 99281

== ENCOUNTER 2021-09-07 14:21 | Emergency (ER) | payer MEDICARE, SELFPAY ==
[2021-09-07 14:32] VITALS: BP 204/101; PULSE 92; RESP 20; TEMP 36.3; O2SAT 97; BMI 18.3
--- NOTE | 2021-09-07 14:54 | ED_ITS ---
HPI - Abdominal Pain General: Chief Complaint: Abdominal Pain Stated Complaint: BLADDER PROBLEMS Time Seen by Provider: 09/07/21 14:38 History of Present Illness: Patient comes in with bladder problems . States that she has occasional pain in her bladder. Denies any pain at this time. Patient is a poor historian. She also shows me her ventral wall abdominal scar and a couple of spots that she says occasionally will hurt, but are not hurting right now. Associated Symptoms: Denies dysuria, fever(s), nausea and vomiting Review of Systems Const: Denies: fever(s) or body aches Eyes: Denies: change in vision or blurry vision ENMT: Denies: throat pain or odynophagia Card: Denies: chest pain or palpitations Resp: Denies: dyspnea or productive cough GI: Reports: abdominal pain; Denies: nausea or vomiting : Denies: flank pain or dysuria Musc: Denies: neck pain or back pain Skin/Breast: Denies: rash or pruritus Neuro: Denies: headache(s) or numbness in extremities Psych: Denies: anxiety or change in appetite Endo: Denies: polyuria or excessive sweating PFSH ED PFSH: Medical History (Updated 09/07/21 @ 16:24 by Regan Orantes MD) Abdominal aortic aneurysm (AAA) Indicated in old records here but not notated on last CT images I could find Carotid artery disease Chronic lumbosacral pain History of stroke (~2017) HTN (hypertension) Hyperlipidemia Hypothyroidism Nicotine dependence, cigarettes, with other nicotine-induced disorders PAD (peripheral artery disease) Surgical History History of colonoscopy (~2018) History of coronary angiogram last [address] Wilkes showed no obstructive disease S/P angiogram of extremity last [address] Wilkes S/P appendectomy S/P insertion of iliac artery stent Family History Mother Heart disease Hypertension Stroke Other Diabetes Social History Smoking and tobacco status: current every day smoker Alcohol intake: never Household members: none Current occupational status: retired Physical Exam Const: COMMON NORMALS: no acute distress, patient oriented x3, healthy appearing and alert HENMT: COMMON NORMALS: normocephalic and atraumatic HEAD & SCALP: normocephalic and atraumatic Eye: COMMON NORMALS: Equal, round and reactive pupils present and EOMs intact bilaterally PUPIL: Yes Equal, round and reactive pupils present Neck/C-Spine: COMMON NORMALS: full ROM and supple Resp: COMMON NORMALS: normal respiratory effort, No retractions and No use of accessory muscles Cardio: COMMON NORMALS: regular rate and regular rhythm RATE: regular rate RHYTHM: regular rhythm GI: COMMON NORMALS: Normal to inspection, nondistended, normoactive bowel sounds present, Soft to palpation and non-tender PALPATION: Yes Soft to palpation Back/Pelvis: COMMON NORMALS: thoracic and lumbar spine normal to inspection and no thoracic nor lumbar tenderness Extremity: COMMON NORMALS: normal to inspection and full ROM Neuro: COMMON NORMALS: patient oriented x3 SENSORIUM/ORIENTATION: Yes alert Psych: COMMON NORMALS: mental status grossly normal and cooperative Skin: COMMON NORMALS: no rashes or lesions noted and no wounds GENERAL SKIN EXAM: no rashes or lesions noted Course Vital Signs: Vital signs: Vital Signs Temperature 97.4 F L 09/07/21 14:32 Pulse Rate 74 09/07/21 15:36 Respiratory Rate 14 09/07/21 15:36 Blood Pressure 185/114 09/07/21 15:36 Pulse Oximetry 13 L 09/07/21 15:36 MDM - Abdominal Pain Medical Decision Making Patient comes in with bladder problems . States that she has occasional pain in her bladder. Denies any pain at this time. Patient is a poor historian. She also shows me her ventral wall abdominal scar and a couple of spots that she says occasionally will hurt, but are not hurting right now. Physical exam her abdomen is soft nontender. Will check labs, and reassess. On reassessment I talked to the patient about the test results. We will place her on antibiotics for urinary tract infection and discharge with precautions to return for worsening or changing symptoms. Lab Data : 09/07/21 15:34 09/07/21 15:34 Labs/Radiology: Laboratory Results WBC 6.8 10^3/uL (4.0-10.0) 09/07/21 15:34 RBC 4.65 10^6/uL (4.1-5.3) 09/07/21 15:34 Hgb 14.4 g/dL (11.5-15.3) 09/07/21 15:34 Hct 44.2 % (37.0-47.0) 09/07/21 15:34 MCV 95.1 fl (81-99) 09/07/21 15:34 MCH 31.0 pg (28.0-34.0) 09/07/21 15: MCHC 32.6 g/dL (30.0-36.0) 09/07/21 15:34 RDW 13.7 % (12.1-15.1) 09/07/21 15:34 Plt Count 133 10^3/cmm (130-400) 09/07/21 15:34 MPV 12.2 fL (7.4-10.4) H 09/07/21 15:34 Neut % (Auto) 62.2 % 09/07/21 15:34 Lymph % (Auto) 28.0 % 09/07/21 15:34 [place] % (Auto) 7.6 % 09/07/21 15:34 Eos % (Auto) 1.2 % 09/07/21 15:34 Baso % (Auto) 0.9 % 09/07/21 15:34 Neut # (Auto) 4.20 10^3/uL (1.8-7.7) 09/07/21 15:34 Lymph # (Auto) 1.9 10^3/uL (0.8-4.8) 09/07/21 15:34 [place] # (Auto) 0.5 10^3/uL (0.2-0.9) 09/07/21:34 Eos # (Auto) 0.1 10^3/uL (0.0-0.8) 09/07/21 15:34 Baso # (Auto) 0.1 10^3/uL (0.0-0.1) 09/07/21 15:34 Nucleated RBC % (auto) 0 % 09/07/21: Nucleated RBCs # 0.0 /100WBC 09/07/21 15:34 Sodium 140 mmol/L (136-145) 09/07/21 15:34 Potassium 4.2 mmol/L (3.5-5.1) 09/07/21 15:34 Chloride 106 mmol/L (98-107) 09/07/21 15:34 Carbon Dioxide 26 mmol/L (22-29) 09/07/21 15:34 Anion Gap 12.2 (5-19) 09/07/21 15:34 BUN 15 mg/dL (8-23) 09/07/21 15:34 Creatinine 0.7 mg/dL (0.5-0.9) 09/07/21 15:34 GFR Calculation Not Reportable 09/07/21 15:34 Glucose 94 mg/dL (65-115) 09/07/21 15:34 Calculated Osmolality 291 mOsm/kg (285-295) 09/07/21 15:34 Calcium 9.4 mg/dL (8.5-10.5) 09/07/21 15:34 Total Bilirubin 0.3 mg/dL (0.15-1.2) 09/07/21 15:34 AST 16 U/L (0-32) 09/07/21 15:34 ALT 9 U/L (0-33) 09/07/21 15:34 Alkaline Phosphatase 98 IU/L (35-105) 09/07/21 15:34 Total Protein 7.1 g/dL (6.6-8.7) 09/07/21 15:34 Albumin 4.1 g/dL (3.5-5.2) 09/07/21 15:34 Globulin 3.0 g/dL (1.3-4.6) 09/07/21 15:34 Urine Color Yellow (Yellow) 09/07/21 15:01 Urine Appearance Hazy (CLEAR) A 09/07/21 15:01 Urine pH 5 (5-7) 09/07/21 15:01 Ur Specific [place] 1.025 (1.005-1.030) 09/07/21 15:01 Urine Protein 1+ (Negative) H 09/07/21 15:01 Urine Glucose (UA) 1+ (Normal) H 09/07/21 15:01 Urine Ketones Negative (Negative) 09/07/21 15:01 Urine Blood 3+ (Negative) H 09/07/21 15:01 Urine Nitrate Positive (Negative) H 09/07/21 15:01 Urine Bilirubin Neg (Negative) 09/07/21 15:01 Urine Urobilinogen Norm mg/dL (Negative) 09/07/21 15:01 Ur Leukocyte Esterase 2+ (Negative) H 09/07/21 15:01 Urine RBC 10-15 /hpf (0-2) H 09/07/21 15:01 Urine WBC 15-25 /hpf (0-5) H 09/07/21 15:01 Ur Squamous Epith Cells 15-25 /hpf (0-5) H 09/07/21 15:01 Ur Transition Epith Cell 5-10 /hpf 09/07/21 15:01 Amorphous Sediment Not Reportable 09/07/21 15:01 Urine Bacteria 2+ /hpf (NONE) H 09/07/21 15:01 Discharge Plan Discharge Patient Disposition: Home Clinical Impression: Urinary tract infection Condition: Stable Prescriptions: New ciprofloxacin HCl 250 mg tablet 250 mg PO BID Qty: 6 0RF No Action chlorzoxazone 500 mg tablet 500 mg PO BID 30 Days Qty: 60 0RF simvastatin 20 mg tablet 20 mg PO DAILY 30 Days Qty: 30 1RF cholecalciferol (vitamin D3) 1,250 mcg (50,000 unit) capsule 50,000 unit PO .once a week Qty: 4 0RF levothyroxine 50 mcg tablet See Rx Instructions .ROUTE .COMPLEX Qty: 30 0RF Dose Instruction: TAKE 1 TABLET BY MOUTH DAILY Rx Instructions: TAKE 1 TABLET BY MOUTH DAILY clopidogrel 75 mg tablet See Rx Instructions .ROUTE .COMPLEX Qty: 30 0RF Dose Instruction: TAKE 1 TABLET BY MOUTH DAILY Rx Instructions: TAKE 1 TABLET BY MOUTH DAILY amlodipine 10 mg tablet See Rx Instructions .ROUTE .COMPLEX Qty: 30 0RF Dose Instruction: TAKE 1 TABLET BY MOUTH DAILY Rx Instructions: TAKE 1 TABLET BY MOUTH DAILY Celebrex 100 mg capsule 200 mg PO BID Qty: 20 0RF Discharge Orders: Discharge ED (Routine); Ordered 09/07/21 Ordered By: Regan Orantes Referrals: Estephania Young, JUAN [Primary Care Provider] - Coding Level of Care Code ED Property Preservation Specialist for Chg Fwd Exam Comprehensive
[2021-09-07 15:08] VITALS: BP 183/82; PULSE 86; RESP 12; O2SAT 97
[2021-09-07 15:23] LABS: Urine Color Yellow (Yellow)
[2021-09-07 15:24] LABS: Add Urine Microscopic? YES; Bilirubin Urine Neg (Negative); Blood Urine 3+ (Negative); Glucose Urine UA 1+ (Normal); Ketones Urine Negative (Negative); Leukocyte Esterase Urine 2+ (Negative); Nitrate Urine Positive (Negative); Protein Urine 1+ (Negative); Specific Gravity, Urine 1.025 (1.005-1.030); Urine Appearance Hazy (CLEAR); Urobilinogen Urine Norm (Negative); pH Urine 5 (5-7)
[2021-09-07 15:26] LABS: Add Urine Culture? No; Bacteria Urine 2+ /hpf; Squamous Epithelial Cell Urine 15-25 /hpf (0-5); WBC Urine 15-25 /hpf (0-5)
[2021-09-07 15:36] VITALS: BP 185/114; PULSE 74; RESP 14; O2SAT 13
[2021-09-07 15:53] LABS: Basophils # 0.1 10^3/uL (0.0-0.1); Basophils % 0.9 %; Eosinophils # 0.1 10^3/uL (0.0-0.8); Eosinophils % 1.2 %; Hematocrit 44.2 % (37.0-47.0); Hemoglobin 14.4 g/dL (11.5-15.3); Lymphocytes # 1.9 10^3/uL (0.8-4.8); Mean Corpuscular HGB Conc 32.6 g/dL (30.0-36.0); Mean Corpuscular Volume 95.1 fl (81-99); Mean Platelet Volume 12.2 fL (7.4-10.4); Monocytes # 0.5 10^3/uL (0.2-0.9); Monocytes % 7.6 %; Neutrophils % 62.2 %; Nucleated Red Blood Cells % 0 %; Platelet Count 133 10^3/cmm (130-400); Red Blood Count 4.65 10^6/uL (4.1-5.3); Red Cell Distribution Width 13.7 % (12.1-15.1); White Blood Count 6.8 10^3/uL (4.0-10.0)
[2021-09-07 16:17] LABS: Alanine Aminotransferase 9 U/L (0-33); Albumin Level 4.1 g/dL (3.5-5.2); Alkaline Phosphatase 98 IU/L (35-105); Anion Gap 12.2 (5-19); Aspartate Amino Transferase 16 U/L (0-32); Blood Urea Nitrogen 15 mg/dL (8-23); Calcium 9.4 mg/dL (8.5-10.5); Carbon Dioxide 26 mmol/L (22-29); Chloride 106 mmol/L (98-107); Glucose 94 mg/dL (65-115); Osmolality Calculated 291 mOsm/kg (285-295); Potassium 4.2 mmol/L (3.5-5.1); Sodium 140 mmol/L (136-145); Total Bilirubin 0.3 mg/dL (0.15-1.2); Total Protein 7.1 g/dL (6.6-8.7)
[2021-09-07 16:43] VITALS: BP 180/95; PULSE 74; RESP 16; O2SAT 95
== END 2021-09-07 16:44 | disposition home or self-care (01) ==
PROVIDERS: Emergency Provider Emergency Medicine; PCP Registered Nurse
DX: N39.0 Urinary tract infection, site not specified (principal); Z79.02 Long term (current) use of antithrombotics/antiplatelets; I10 Essential (primary) hypertension; Z86.73 Personal history of transient ischemic attack (TIA), and cerebral infarction without residual deficits; E78.5 Hyperlipidemia, unspecified; F17.210 Nicotine dependence, cigarettes, uncomplicated
CPT/HCPCS: 51701; 80053; 81001; 85025; 87077; 87086; 87186; 99283

== ENCOUNTER → 2021-10-14 14:36 | Outpatient (BNVA) | payer MEDICARE, SELFPAY | PROVIDERS: PCP Registered Nurse; Visit Provider Registered Nurse | DX: E11.9 Type 2 diabetes mellitus without complications (principal); I10 Essential (primary) hypertension; E03.9 Hypothyroidism, unspecified; E78.5 Hyperlipidemia, unspecified | CPT/HCPCS: 80053; 81000; 84443; 85025 ==

== ENCOUNTER 2021-12-02 10:22 | Emergency (ER) | payer MEDICARE, SELFPAY ==
[2021-12-02 10:23] VITALS: BP 185/79; PULSE 73; RESP 17; TEMP 36.6; O2SAT 99; BMI 28.0
[2021-12-02 10:28] VITALS: BP 176/75; PULSE 84; RESP 18; TEMP 36.6; O2SAT 96
--- NOTE | 2021-12-02 10:31 | W.ED.FALL ---
Documented by User: PINO Plaza 12/02/21 13:24 HPI - Fall General: Chief Complaint: Fall Stated Complaint: low back pain, right hip pain post fall Time Seen by Provider: 12/02/21 10:24 Source: patient Mode of arrival: EMS Limitations: no limitations History of Present Illness: Patient is a 81-year-old female presents to ED today via EMS for complaints of lower back and right hip pain following a fall. Patient tells me yesterday her dog got anxious and excited and ran up onto the front porch and jumped on her causing her to fall onto her right hip and back. Patient tells me she was able to get up after the fall with help. She denies striking her head or LOC. Patient is a poor historian when answering if she is able to bear weight on the extremity on her own-she often states not very good or not without help or family is having to help me move around , etc but ultimately tells me no-she is not able to ambulate normally secondary to her discomfort. She denies any other injuries or complaints at this time. Patient resides with her daughter and son in law. She is reportedly her own guardian. complaint: fall Onset (ago): day(s) (yesterday) Fall from: standing Fall witnessed: no Place fall occurred: home Loss of consciousness: None Prolonged down time: no Symptoms prior to fall: none Context: tripped/slipped (dog caused her to fall) Location of injury: back Associated symptoms-after fall: Reports no associated symptoms; Denies abdominal pain, chest pain, headache(s) or neck pain Review of Systems Const: Denies: fever(s), chills, body aches, fatigue or malaise Card: Denies: chest pain Resp: Denies: dyspnea GI: Denies: abdominal pain : Denies: flank pain Musc: Reports: back pain and joint pain (R hip/pelvis); Denies: neck pain, extremity pain, extremity swelling, joint swelling, joint redness or joint warmth Neuro: Denies: headache(s), numbness in extremities, sensory changes, lack of coordination, frequent falls or dizziness PFS ED PFSH: Medical History Abdominal aortic aneurysm (AAA) Indicated in old records here but not notated on last CT images I could find Carotid artery disease Chronic lumbosacral pain History of stroke (~2017) HTN (hypertension) Hyperlipidemia Hypothyroidism Nicotine dependence, cigarettes, with other nicotine-induced disorders PAD (peripheral artery disease) Surgical History History of colonoscopy (~2018) History of coronary angiogram last [address] Wilkes showed no obstructive disease S/P angiogram of extremity last [address] Wilkes S/P appendectomy S/P insertion of iliac artery stent Family History Mother Heart disease Hypertension Stroke Other Diabetes Social History Smoking and tobacco status: current every day smoker Alcohol intake: never Household members: none Current occupational status: retired Physical Exam Const: COMMON NORMALS: no acute distress, patient oriented x3, no limitations and alert GENERAL APPEARANCE: cooperative ORIENTATION/CONSCIOUSNESS: Yes awake, Yes oriented to person, Yes oriented to place and Yes oriented to time HENMT: COMMON NORMALS: normocephalic and atraumatic HEAD & SCALP: normal to inspection, normocephalic and atraumatic FACE & SINUS: normal facial exam Eye: GENERAL EYE: appearance normal, both eyes and all related structures Neck/C-Spine: COMMON NORMALS: full ROM GENERAL: Yes normal visual inspection CERVICAL SPINE: No cervical ROM normal, No pain with cervical ROM, No Cervical spine tenderness, No step off deformity and No Paracervical muscle tenderness Chest: COMMONS NORMALS: normal inspection of the chest and normal palpation of entire chest wall Resp: COMMON NORMALS: normal respiratory effort and clear to auscultation bilaterally AUSCULTATION: clear to auscultation bilaterally Cardio: COMMON NORMALS: regular rate and regular rhythm RATE: regular rate RHYTHM: regular rhythm GI: COMMON NORMALS: Normal to inspection, nondistended, normoactive bowel sounds present, Soft to palpation and non-tender PALPATION: Yes Soft to palpation Back/Pelvis: THORACIC SPINE/UPPER BACK: Yes normal to inspection, Yes thoracic ROM normal, No thoracic spinal tenderness, No paraspinal muscle tenderness and No paraspinal muscle spasm LUMBAR SPINE/LOWER BACK: Yes normal to inspection, Yes lumbar spinal tenderness (mild lower lumbar), Yes paraspinal muscle tenderness Lumbar paraspinal muscle tenderness: right, No paraspinal muscle spasm and Yes straight leg raise negative bilaterally PELVIS: Yes buttocks normal SACROILIAC JOINTS: Yes SI joints normal SACRUM: no tenderness COCCYX: no tenderness Extremity: COMMON NORMALS: capillary refill normal, no joint enlargement, no clubbing, cyanosis or edema, no calf tenderness and no pedal edema GENERAL: Yes normal exam except as noted RIGHT LOWER EXTREMITY: Yes hip joint (anteriolateral hip pain; leg not shortened or rotated ) Right hip: Yes ROM (fairly good ROM; some pain anteriorly with hip flexion) and Yes neurovascular exam (normal) Neuro: LISY COMA SCALE: document GCS findings [place] coma scale eye opening: Spontaneous [place] coma scale verbal response: Orientated [place] coma scale motor response: Obey commands [place] coma scale total score: 15 COMMON NORMALS: patient oriented x3, moves all extremities, no focal motor deficits and no sensory deficits noted SENSORIUM/ORIENTATION: Yes alert, Yes oriented to person, Yes oriented to place and Yes oriented to time MOTOR EXAM: 5/5 motor strength present throughout Skin: COMMON NORMALS: no rashes or lesions noted GENERAL SKIN EXAM: no rashes or lesions noted TRAUMA: no lacerations or abrasions Course Vital Signs: Vital signs: Vital Signs Temperature 98 F 12/02/21 15:35 Pulse Rate 68 12/02/21 15:35 Respiratory Rate 18 12/02/21 15:35 Blood Pressure 136/81 12/02/21 15:35 Pulse Oximetry 96 12/02/21 15:35 MDM - Fall Medical Decision Making CT lumbar spine and XR R hip/pelvis negative. We attempted ambulation with walker but patient complained of an immense amount of pain and was unable to complete this. States she normally can ambulate with walker therefore CT imaging of her hip was obtained to rule out subtle fracture that was maybe missed on XR imaging. CT does show a non-displaced greater trochanter fracture. No displacement/widening. Femoral head normal. Spoke with Dr. Figueroa who stated treatment is weight bearing as tolerated. We will send patient home with a wheelchair and bedside commode. I have spoken to family (daughter and son-in-law) and made them aware of treatment and they agreed to help care for patient at home. CM will work on ortho follow up. Will give RX for pain medications she can use. She has a walker she can transition to when appropriate. Discussed shelter facility but patient adamantly refuses. Lab Data Radiology Impressions Hip/Pelvis X-Ray 12/02/21 10:38 IMPRESSION: No acute injury. Lumbar Spine CT 12/02/21 10:38 IMPRESSION: 1. Mild lumbar curve convex LEFT. 2. No acute appearing compression fractures. 3. Disc space narrowing worse at L2-L3 with vacuum disc phenomenon. 4. Mild to moderate central canal stenosis L4-L5. Hip CT 12/02/21 11:52 IMPRESSION: 1. Nondisplaced acute fracture involving the greater trochanter with anterior posterior extension. This extends anterior to posterior approximately 2.3 cm. 2. No significant displacement or widening. 3. No other visualized fractures. 4. Moderate degenerative arthritis RIGHT hip with joint space narrowing and subchondral cystic change. Notified PINO Plaza at 12/02/2021 12:28 PM. Discharge Plan Discharge Patient Disposition: Home Clinical Impression: Fall on same level from tripping Closed fracture of greater trochanter of right femur Qualifiers: Encounter type: initial encounter Fracture alignment: nondisplaced Qualified Code(s): S72.114A - Nondisplaced fracture of greater trochanter of right femur, initial encounter for closed fracture Condition: Stable Prescriptions: New hydrocodone-acetaminophen 5-325 mg tablet 1 tab PO Q4H PRN (Reason: pain) Qty: 20 0RF No Action chlorzoxazone 500 mg tablet 500 mg PO BID 30 Days Qty: 60 0RF amlodipine 10 mg tablet 10 mg PO DAILY 30 Days Qty: 30 0RF Rx Instructions: Needs follow up in 1 mo cholecalciferol (vitamin D3) 1,250 mcg (50,000 unit) capsule 50,000 unit PO .once a week Qty: 4 0RF clopidogrel 75 mg tablet 75 mg PO DAILY 90 Days Qty: 90 0RF simvastatin 20 mg tablet 20 mg PO DAILY 90 Days Qty: 90 0RF levothyroxine 50 mcg tablet 50 mcg PO DAILY 30 Days Qty: 30 0RF celecoxib [Celebrex] 100 mg capsule 200 mg PO BID Qty: 20 0RF Discharge Orders: Discharge ED (Routine); Ordered 12/02/21 Ordered By: Fabby Calle Other Ambulatory Orders: DME: [employer] (Order) Location: None Selected Ordered By: Fabby Calle DME: Wheelchair (Order) Location: None Selected Ordered By: Fabby Calle Referrals: Estephania Young, JUAN [Primary Care Provider] - Patient Instructions: Opioid Safety Activity Restrictions/Additional Instructions: As we discussed case management will set you up with a follow-up orthopedic appointment. Treatment for your fracture includes weightbearing as tolerated. Since you were not able to bear weight here in the emergency department we will send you home with a wheelchair and bedside commode. I have spoken to family who is agreeable to assist you with daily activities such as toileting and bathing. You may transition to ambulate with your walker as pain improves. Coding Level of Care Code ED Artistic Associate for Chg Fwd Exam Comprehensive Documented by User: Will Figueroa DO 12/03/21 14:53 HPI - Fall General: Chief Complaint: Fall Stated Complaint: low back pain, right hip pain post fall Time Seen by Provider: 12/02/21 10:24 [facility] ED PFSH: Medical History Abdominal aortic aneurysm (AAA) Indicated in old records here but not notated on last CT images I could find Carotid artery disease Chronic lumbosacral pain History of stroke (~2017) HTN (hypertension) Hyperlipidemia Hypothyroidism Nicotine dependence, cigarettes, with other nicotine-induced disorders PAD (peripheral artery disease) Surgical History History of colonoscopy (~2018) History of coronary angiogram last [address] Wilkes showed no obstructive disease S/P angiogram of extremity last [address] Wilkes S/P appendectomy S/P insertion of iliac artery stent Family History Mother Heart disease Hypertension Stroke Other Diabetes Social History Smoking and tobacco status: current every day smoker Alcohol intake: never Household members: none Current occupational status: retired Physical Exam Neuro: LISY COMA SCALE: document GCS findings [place] coma scale total score: 15 Course Vital Signs: Vital signs: Vital Signs Temperature 98 F 12/02/21 15:35 Pulse Rate 68 12/02/21 15:35 Respiratory Rate 18 12/02/21 15:35 Blood Pressure 136/81 12/02/21 15:35 Pulse Oximetry 96 12/02/21 15:35 MDM - Fall Medical Decision Making CT lumbar spine and XR R hip/pelvis negative. We attempted ambulation with walker but patient complained of an immense amount of pain and was unable to complete this. States she normally can ambulate with walker therefore CT imaging of her hip was obtained to rule out subtle fracture that was maybe missed on XR imaging. CT does show a non-displaced greater trochanter fracture. No displacement/widening. Femoral head normal. Spoke with Dr. Figueroa who stated treatment is weight bearing as tolerated. We will send patient home with a wheelchair and bedside commode. I have spoken to family (daughter and son-in-law) and made them aware of treatment and they agreed to help care for patient at home. CM will work on ortho follow up. Will give RX for pain medications she can use. She has a walker she can transition to when appropriate. Discussed shelter facility but patient adamantly refuses. Chart reviewed and patient discussed with midlevel. Agree with assessment and plan. Recommend placement at skilled level nursing patient declined that. Medical Records I reviewed the patient's medical records. Lab Data I reviewed the patient's lab results. Radiology Impressions Hip/Pelvis X-Ray 12/02/21 10:38 IMPRESSION: No acute injury. Lumbar Spine CT 12/02/21 10:38 IMPRESSION: 1. Mild lumbar curve convex LEFT. 2. No acute appearing compression fractures. 3. Disc space narrowing worse at L2-L3 with vacuum disc phenomenon. 4. Mild to moderate central canal stenosis L4-L5. Hip CT 12/02/21 11:52 IMPRESSION: 1. Nondisplaced acute fracture involving the greater trochanter with anterior posterior extension. This extends anterior to posterior approximately 2.3 cm. 2. No significant displacement or widening. 3. No other visualized fractures. 4. Moderate degenerative arthritis RIGHT hip with joint space narrowing and subchondral cystic change. Notified PINO Plaza at 12/02/2021 12:28 PM. Discharge Plan Discharge Patient Disposition: Home Clinical Impression: Fall on same level from tripping Closed fracture of greater trochanter of right femur Qualifiers: Encounter type: initial encounter Fracture alignment: nondisplaced Qualified Code(s): S72.114A - Nondisplaced fracture of greater trochanter of right femur, initial encounter for closed fracture Condition: Stable Prescriptions: New hydrocodone-acetaminophen 5-325 mg tablet 1 tab PO Q4H PRN (Reason: pain) Qty: 20 0RF No Action chlorzoxazone 500 mg tablet 500 mg PO BID 30 Days Qty: 60 0RF amlodipine 10 mg tablet 10 mg PO DAILY 30 Days Qty: 30 0RF Rx Instructions: Needs follow up in 1 mo cholecalciferol (vitamin D3) 1,250 mcg (50,000 unit) capsule 50,000 unit PO .once a week Qty: 4 0RF clopidogrel 75 mg tablet 75 mg PO DAILY 90 Days Qty: 90 0RF simvastatin 20 mg tablet 20 mg PO DAILY 90 Days Qty: 90 0RF levothyroxine 50 mcg tablet 50 mcg PO DAILY 30 Days Qty: 30 0RF celecoxib [Celebrex] 100 mg capsule 200 mg PO BID Qty: 20 0RF Discharge Orders: Discharge ED (Routine); Ordered 12/02/21 Ordered By: Fabby Calle Other Ambulatory Orders: DME: [employer] (Order) Location: None Selected Ordered By: Fabby Calle DME: Wheelchair (Order) Location: None Selected Ordered By: Fabby Calle Referrals: Estephania Young, [employer] [Primary Care Provider] - Patient Instructions: Opioid Safety Activity Restrictions/Additional Instructions: As we discussed case management will set you up with a follow-up orthopedic appointment. Treatment for your fracture includes weightbearing as tolerated. Since you were not able to bear weight here in the emergency department we will send you home with a wheelchair and bedside commode. I have spoken to family who is agreeable to assist you with daily activities such as toileting and bathing. You may transition to ambulate with your walker as pain improves. Coding Level of Care Code ED Artistic Associate for Narciso Fwluna Exam Comprehensive
--- NOTE | 2021-12-02 10:38 | XRR_ITS ---
PROCEDURE INFORMATION: Exam: XR Right Hip Exam date and time: 12/02/2021 10:43 AM Age: 81 years old Clinical indication: Injury or trauma; Fall; Blunt trauma (contusions or hematomas); Right; Hip; Injury date: 12/01/21; Additional info: Fall, one view pelvis too please TECHNIQUE: Imaging protocol: XR Right hip. Views: 1 view hip with pelvis when performed. COMPARISON: CT abdomen pelvis w con* [id number] 05/01/2017 11:02 AM FINDINGS: Bones/joints: No fracture or dislocation. There is mild degenerative changes of the hip joints, manifested by joint space narrowing and periarticular osteophytes. Soft tissues: Unremarkable. Vasculature: Vascular stents projects over the pelvis at the expected location of the common iliac vasculature. XR/XR hip RT 2-3V wo/w pel* [id number] IMPRESSION: No acute injury.
--- NOTE | 2021-12-02 10:38 | CT_ITS ---
WS: [id number] CT LUMBAR SPINE TECHNIQUE: Noncontrast CT of the lumbar spine with coronal and sagittal reformatted images. CLINICAL INFORMATION: fall, low back pain COMPARISON: None. DLP: 1111.[address] scans at [facility] use at least one of these dose optimization techniques: automated e xposure control; mA and/or kV adjustment per patient size (includes targeted exams where dose is matc hed to clinical indication); or iterative reconstruction. FINDINGS: Mild lumbar curve convex LEFT. Disc space narrowing worse at L2-L3 with vacuum disc phenomenon. Mild disc bulging throughout the lumbar spine. No acute compression fractures. L1-L2: Mild disc bulging with a small central protrusion. Mild LEFT foraminal narrowing. L2-L3: Mild annular bulging. Mild central canal stenosis. Impingement on the RIGHT greater than LEFT subarticular recess. Mild RIGHT foraminal narrowing. Mild facet arthropathy. L3-L4: Mild annular bulging with slight effacement of ventral thecal sac. Mild LEFT foraminal narrowi ng. Mild facet arthropathy. L4-L5: Mild annular bulging with mild to moderate central canal stenosis. Impingement traversing L5 n erve roots bilaterally. Moderate facet arthropathy. Mild LEFT foraminal narrowing. L5-S1: Mild disc bulging with slight contact of the LEFT S1 nerve root. Moderate facet arthropathy li gamentum flavum hypertrophy. Foramen are patent. Small infrarenal abdominal aortic aneurysm. Unchanged since August 20, 2018 measuring 2.3 x 2.2 cm in AP x transverse with peripheral mural thrombus. Bilateral iliac stents. Postoperative changes [employer] unction. CT/CT lumbar spine wo con* [id number] IMPRESSION: 1. Mild lumbar curve convex LEFT. 2. No acute appearing compression fractures. 3. Disc space narrowing worse at L2-L3 with vacuum disc phenomenon. 4. Mild to moderate central canal stenosis L4-L5.
--- NOTE | 2021-12-02 11:52 | CT_ITS ---
WS: [id number] NONCONTRAST CT RIGHT HIP TECHNIQUE: Noncontrast CT RIGHT hip with coronal and sagittal reformatted images. CLINICAL INFORMATION: pain following fall COMPARISON: None. DLP: 125.[address] scans at [facility] use at least one of these dose optimization techniques: automated e xposure control; mA and/or kV adjustment per patient size (includes targeted exams where dose is matc hed to clinical indication); or iterative reconstruction. FINDINGS: Nondisplaced fracture through the greater trochanter with anterior to posterior extension. No signifi cant fracture widening or displacement. Femoral neck appears normal. Moderate to advanced degenerative arthritis RIGHT hip with joint space narrowing. Subchondral cystic change involving the posterior lateral femoral head neck junction and superior acetabulum. Visualized RIGHT pubic rami are normal. Normal lesser trochanter. Normal RIGHT visualized pubic rami. Vascular calcification. RIGHT iliac stent. Mild soft tissue edema about the RIGHT hip. CT/CT hip RT wo con* [id number] IMPRESSION: 1. Nondisplaced acute fracture involving the greater trochanter with anterior posterior extension. This extends anterior to posterior approximately 2.3 cm. 2. No significant displacement or widening. 3. No other visualized fractures. 4. Moderate degenerative arthritis RIGHT hip with joint space narrowing and chen bchondral cystic change. Notified PINO Plaza at 12/02/2021 12:28 PM.
[2021-12-02 12:28] VITALS: BP 185/80; PULSE 73; RESP 20; O2SAT 97
[2021-12-02 12:36] VITALS: RESP 18; O2SAT 97
[2021-12-02] MEDS: morphine 4 mg/mL SDV 1 mL IM (12:36)
[2021-12-02 12:58] VITALS: BP 179/81; PULSE 76; RESP 18; O2SAT 99
[2021-12-02 15:35] VITALS: BP 136/81; PULSE 68; RESP 18; TEMP 36.6; O2SAT 96
--- NOTE | 2021-12-04 16:52 | DCPLANNER ---
Addendum entered by Dona Huerta 12/13/21 16:26: Patient had a follow up appointment scheduled for 12.09.21 at ortho - patient did not attend appointment. Original Note: business systems manager had message to schedule a follow up appointment for patient with ortho. business systems manager sent patients information to the front office staff at ortho. Patients information will be printed and reviewed. Clinic will call patient with appointment information.
== END 2021-12-02 15:37 | disposition home or self-care (01) ==
PROVIDERS: Emergency Provider Physician Assistant; PCP Registered Nurse
DX: S72.114A Nondisplaced fracture of greater trochanter of right femur, initial encounter for closed fracture (principal); W01.0XXA Fall on same level from slipping, tripping and stumbling without subsequent striking against object, initial encounter; Z79.02 Long term (current) use of antithrombotics/antiplatelets
CPT/HCPCS: 72131; 73502; 73700; 96372; 99283; J2270

== ENCOUNTER 2022-01-12 16:41 | Emergency (ER) | payer MEDICARE, SELFPAY ==
--- NOTE | 2022-01-12 16:54 | ED_ITS ---
Documented by User: Lacey Cody MD 01/12/22 17:03 HPI - General Adult General: Chief complaint: Extremity Problem,Nontraumatic Stated complaint: LEG CRAMPS Time Seen by Provider: 01/12/22 16:43 History of Present Illness: Patient 81-year-old female with history of advanced dementia who presents emergency room for concerns of possible leg cramps. Per EMS, patient was brought in because she was complaining of bilateral leg cramps. By time EMS for, patient was not in any acute pain. Has been any recent falls. At the present time, is limited by patient's underlying advanced dementia. Onset:unknown Duration:ongoing Location:home Severity:moderate Associated symptoms: Deny chest pain, dyspnea, nausea, rash, palpitations or vomiting Review of Systems Const: Denies: fever(s) or chills Eyes: Denies: change in vision ENMT: Denies: mouth pain Card: Denies: chest pain or palpitations Resp: Denies: dyspnea or non-productive cough GI: Denies: abdominal pain, nausea, vomiting or diarrhea : Denies: dysuria Musc: Reports: extremity pain (+leg cramps) Skin/Breast: Denies: rash or new lesions Neuro: Denies: weakness in extremities Psych: Reports: other (Normal mood) Kuldeep/Lymph: Denies: easy bruising PFSH ED PFSH: Medical History Abdominal aortic aneurysm (AAA) Indicated in old records here but not notated on last CT images I could find Carotid artery disease Chronic lumbosacral pain History of stroke (~2017) HTN (hypertension) Hyperlipidemia Hypothyroidism Nicotine dependence, cigarettes, with other nicotine-induced disorders PAD (peripheral artery disease) Surgical History History of colonoscopy (~2018) History of coronary angiogram last [address] Wilkes showed no obstructive disease S/P angiogram of extremity last [address] Wilkes S/P appendectomy S/P insertion of iliac artery stent Family History Mother Heart disease Hypertension Stroke Other Diabetes Social History Smoking and tobacco status: current every day smoker Alcohol intake: never Household members: none Current occupational status: retired Physical Exam Const: COMMON NORMALS: alert HENMT: COMMON NORMALS: atraumatic HEAD & SCALP: atraumatic MOUTH: moist mucous membranes not abnormal Eye: COMMON NORMALS: EOMs intact bilaterally and conjunctivae normal CONJUNCTIVA: Yes conjunctivae normal Neck/C-Spine: COMMON NORMALS: full ROM and supple Resp: COMMON NORMALS: normal respiratory effort and clear to auscultation bilaterally AUSCULTATION: clear to auscultation bilaterally Cardio: COMMON NORMALS: regular rate RATE: regular rate GI: COMMON NORMALS: Soft to palpation and non-tender PALPATION: Yes Soft to palpation Extremity: COMMON NORMALS: full ROM NARRATIVE EXTREMITY EXAM: 2+/PT pulses bilaterally lower extremity, cap refill less than 3 seconds, the extremity does not appear to be cold, patient is moving all extremities Neuro: SENSORIUM/ORIENTATION: Yes alert OTHER: + Moving all extremities, unable to follow command at this time due to baseline medical conditions Psych: OTHER: +unable to asess given baseline dementia Course Vital Signs: Vital signs: Vital Signs Temperature 98.2 F 01/12/22 18:57 Pulse Rate 64 01/13/22 09:50 Respiratory Rate 18 01/13/22 03:00 Blood Pressure 168/71 01/13/22 09:50 Pulse Oximetry 96 01/13/22 09:50 MDM - General Adult Medical Decision Making 81-year-old female history of advanced dementia presented to the emergency room for concerns of leg pain. On physical exam, patient has no focal like tenderness palpation. Neurovascular exam intact in lower extremity. She is not actively in pain. Lab work-up showed no electrolyte abnormality. Ultrasound not show any signs of DVTs in the lower extremity. No palpable focal tenderness to palpation. Patient is moving all extremities. At the present time, do not suspect any acute fractures or any acute vascular pathology. Disposition: Discharge. Patient counseled regarding diagnostic impression, treatment plan. Patient given ED strict return precautions to return for continuation, worsening, or development of new symptoms. Instructed to f/u w/ PCP regarding symptoms today. Patient verbalized understanding. Lab Data : 01/12/22 18:48 01/12/22 18:48 Radiology Impressions Venous Duplex 01/12/22 17:08 IMPRESSION: 1. No evidence of deep vein thrombosis. 2. Limited assessment of the right lower extremity deep veins. Duplex Scan Lower Extremity Artery 01/12/22 17:09 IMPRESSION: 1. No focal hemodynamically significant arterial stenosis is identified in the thighs bilaterally. 2. Right popliteal artery cannot be assessed due to limited patient cooperation. 3. Abnormal waveforms throughout the lower extremity arteries bilaterally suggests multifocal disease and/or upstream aortoiliac stenosis. CT could provide better assessment. 4. Markedly abnormal parvus tardus waveforms in the visible infrapopliteal arteries bilaterally suggesting multifocal disease. 5. Irregular cardiac rhythm. ADDENDUM: 01/12/22 2307 The superficial femoral arteries are both occluded based on subsequent CT. The pantograph transferrer reported patency of the superficial femoral arteries and provided velocity measurements. Clearly, these are inaccurate. The profundus femoris arteries may have been interrogated. See report for CTA lower extremities for clarification. Lower Extremity CTA 01/12/22 19:47 IMPRESSION: 1. Nondisplaced avulsion type fracture of the right greater trochanter. The fracture location raises suspicion for a pathologic fracture although no osseous lesion is visible. 2. 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 3. Chronic occlusion of the left superficial femoral artery, mildly progressive since 08/20/2018. The distal portion was patent previously but is now occluded. 4. 50-70% stenosis in the left popliteal artery is new since 08/20/2018. 5. Patent 3 vessel runoff to both feet. 6. Patent left common and external iliac artery stent. Patent right external iliac artery stent. 7. High-grade stenosis of the internal iliac arteries bilaterally. IMPRESSION: 1. Nondisplaced avulsion type fracture of the right greater trochanter. The fracture location raises suspicion for a pathologic fracture although no osseous lesion is visible. 2. 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 3. Chronic occlusion of the left superficial femoral artery, mildly progressive since 08/20/2018. The distal portion was patent previously but is now occluded. 4. 50-70% stenosis in the left popliteal artery is new since 08/20/2018. 5. Patent 3 vessel runoff to both feet. 6. Patent left common and external iliac artery stent. Patent right external iliac artery stent. 7. High-grade stenosis of the internal iliac arteries bilaterally. Laboratory Results WBC 8.7 10^3/uL (4.0-10.0) 01/12/22 18:48 RBC 4.71 10^6/uL (4.1-5.3) 01/12/22 18:48 Hgb 15.0 g/dL (11.5-15.3) 01/12/22 18:48 Hct 43.8 % (37.0-47.0) 01/12/22 18:48 MCV 93.0 fl (81-99) 01/12/22 18:48 MCH 31.8 pg (28.0-34.0) 01/12/22 18:48 MCHC 34.2 g/dL (30.0-36.0) 01/12/22 18:48 RDW 13.6 % (12.1-15.1) 01/12/22 18:48 Plt Count 185 10^3/cmm (130-400) 01/12/22 18:48 MPV 10.9 fL (7.4-10.4) H 01/12/22 18:48 Neut % (Auto) 63.1 % 01/12/22 18:48 Lymph % (Auto) 25.5 % 01/12/22 18:48 Vermilion % (Auto) 7.7 % 01/12/22 18:48 Eos % (Auto) 2.1 % 01/12/22 18:48 Baso % (Auto) 1.3 % 01/12/22 18:48 Neut # (Auto) 5.52 10^3/uL (1.8-7.7) 01/12/22 18:48 Lymph # (Auto) 2.2 10^3/uL (0.8-4.8) 01/12/22 18:48 Vermilion # (Auto) 0.7 10^3/uL (0.2-0.9) 01/12/22 18:48 Eos # (Auto) 0.2 10^3/uL (0.0-0.8) 01/12/22 18:48 Baso # (Auto) 0.1 10^3/uL (0.0-0.1) 01/12/22 18:48 Nucleated RBC % (auto) 0 % 01/12/22 18:48 Nucleated RBCs # 0.0 /100WBC 01/12/22 18:48 Sodium 136 mmol/L (136-145) 01/12/22 18:48 Potassium 4.0 mmol/L (3.5-5.1) 01/12/22 18:48 Chloride 103 mmol/L (98-107) 01/12/22 18:48 Carbon Dioxide 20 mmol/L (22-29) L 01/12/22 18:48 Anion Gap 17.0 (5-19) 01/12/22 18:48 BUN 15 mg/dL (8-23) 01/12/22 18:48 Creatinine 0.7 mg/dL (0.5-0.9) 01/12/22 18:48 GFR Calculation Not Reportable 01/12/22 18:48 Glucose 99 mg/dL (65-115) 01/12/22 18:48 Calculated Osmolality 283 mOsm/kg (285-295) L 01/12/22 18:48 Calcium 9.3 mg/dL (8.5-10.5) 01/12/22 18:48 Total Bilirubin 0.3 mg/dL (0.15-1.2) 01/12/22 18:48 AST 15 U/L (0-32) 01/12/22 18:48 ALT 10 U/L (0-33) 01/12/22 18:48 Alkaline Phosphatase 103 IU/L (35-105) 01/12/22 18:48 Total Protein 6.6 g/dL (6.6-8.7) 01/12/22 18:48 Albumin 3.7 g/dL (3.5-5.2) 01/12/22 18:48 Globulin 2.9 g/dL (1.3-4.6) 01/12/22 18:48 Discharge Plan Discharge Patient Disposition: Home Clinical Impression: PAD (peripheral artery disease) Condition: Stable Prescriptions: No Action chlorzoxazone 500 mg tablet 500 mg PO BID 30 Days Qty: 60 0RF amlodipine 10 mg tablet 10 mg PO DAILY 30 Days Qty: 30 0RF Rx Instructions: Needs follow up in 1 mo cholecalciferol (vitamin D3) 1,250 mcg (50,000 unit) capsule 50,000 unit PO .once a week Qty: 4 0RF clopidogrel 75 mg tablet 75 mg PO DAILY 90 Days Qty: 90 0RF simvastatin 20 mg tablet 20 mg PO DAILY 90 Days Qty: 90 0RF levothyroxine 50 mcg tablet 50 mcg PO DAILY 30 Days Qty: 30 0RF celecoxib [Celebrex] 100 mg capsule 200 mg PO BID Qty: 20 0RF hydrocodone-acetaminophen 5-325 mg tablet 1 tab PO Q4H PRN (Reason: pain) Qty: 20 0RF Discharge Orders: Discharge ED (Routine); Ordered 01/12/22 Ordered By: Cristofer Holliday Referrals: Estephania Young FNP [Primary Care Provider] - Discharge Diet: Regular Discharge Activity: Increase activity as tolerated Activity Restrictions/Additional Instructions: Follow-up with medical provider as directed. manager parking will be counting in the next several days set up an appointment with cardiology/vascular for evaluation of bilateral leg pain. Continue taking all home medications as previously prescribed.. Return to the ER or your medical provider if condition worsens. Please read and understand discharge instructions. Thank you for choosing [facility] for your healthcare needs today. Please realize this is an emergency room and that we are providing you with a medical screening exam and this may not be complete and all inclusive of all the testing and or work up that you may need to determine your ailment or severity of your illness. It is very important that you follow up as instructed or that you return to the Emergency Department should you have concerns or if your condition changes or worsens in any way. Sign Out Sign Out Data: Patient Sign Out occurred on 01/12/22 at 22:48. Patient's care was discussed, and care was transferred from to PINO Hernandez. Coding Level of Care Code ED Real Estate Sales Supervisor for Chg Fwd Exam Comprehensive Documented by User: PINO Hernandez 01/13/22 11:16 HPI - General Adult General: Chief complaint: Extremity Problem,Nontraumatic Stated complaint: LEG CRAMPS Time Seen by Provider: 01/12/22 16:43 PFSH ED PFSH: Medical History Abdominal aortic aneurysm (AAA) Indicated in old records here but not notated on last CT images I could find Carotid artery disease Chronic lumbosacral pain History of stroke (~2017) HTN (hypertension) Hyperlipidemia Hypothyroidism Nicotine dependence, cigarettes, with other nicotine-induced disorders PAD (peripheral artery disease) Surgical History History of colonoscopy (~2019) History of coronary angiogram last [address] Wilkes showed no obstructive disease S/P angiogram of extremity last [address] Wilkes S/P appendectomy S/P insertion of iliac artery stent Family History Mother Heart disease Hypertension Stroke Other Diabetes Social History Smoking and tobacco status: current every day smoker Alcohol intake: never Household members: none Current occupational status: retired Course Vital Signs: Vital signs: Vital Signs Temperature 98.2 F 01/12/22 18:57 Pulse Rate 64 01/13/22 09:50 Respiratory Rate 18 01/13/22 03:00 Blood Pressure 168/71 01/13/22 09:50 Pulse Oximetry 96 01/13/22 09:50 MDM - General Adult Lab Data I reviewed the patient's lab results. : 01/12/22 18:48 01/12/22 18:48 Radiology Impressions Venous Duplex 01/12/22 17:08 IMPRESSION: 1. No evidence of deep vein thrombosis. 2. Limited assessment of the right lower extremity deep veins. Duplex Scan Lower Extremity Artery 01/12/22 17:09 IMPRESSION: 1. No focal hemodynamically significant arterial stenosis is identified in the thighs bilaterally. 2. Right popliteal artery cannot be assessed due to limited patient cooperation. 3. Abnormal waveforms throughout the lower extremity arteries bilaterally suggests multifocal disease and/or upstream aortoiliac stenosis. CT could provide better assessment. 4. Markedly abnormal parvus tardus waveforms in the visible infrapopliteal arteries bilaterally suggesting multifocal disease. 5. Irregular cardiac rhythm. ADDENDUM: 01/12/22 7553 The superficial femoral arteries are both occluded based on subsequent CT. The pantograph transferrer reported patency of the superficial femoral arteries and provided velocity measurements. Clearly, these are inaccurate. The profundus femoris arteries may have been interrogated. See report for CTA lower extremities for clarification. Lower Extremity CTA 01/12/22 19:47 IMPRESSION: 1. Nondisplaced avulsion type fracture of the right greater trochanter. The fracture location raises suspicion for a pathologic fracture although no osseous lesion is visible. 2. 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 3. Chronic occlusion of the left superficial femoral artery, mildly progressive since 08/20/2018. The distal portion was patent previously but is now occluded. 4. 50-70% stenosis in the left popliteal artery is new since 08/20/2018. 5. Patent 3 vessel runoff to both feet. 6. Patent left common and external iliac artery stent. Patent right external iliac artery stent. 7. High-grade stenosis of the internal iliac arteries bilaterally. IMPRESSION: 1. Nondisplaced avulsion type fracture of the right greater trochanter. The fracture location raises suspicion for a pathologic fracture although no osseous lesion is visible. 2. 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 3. Chronic occlusion of the left superficial femoral artery, mildly progressive since 08/20/2018. The distal portion was patent previously but is now occluded. 4. 50-70% stenosis in the left popliteal artery is new since 08/20/2018. 5. Patent 3 vessel runoff to both feet. 6. Patent left common and external iliac artery stent. Patent right external iliac artery stent. 7. High-grade stenosis of the internal iliac arteries bilaterally. Laboratory Results WBC 8.7 10^3/uL (4.0-10.0) 01/12/22 18:48 RBC 4.71 10^6/uL (4.1-5.3) 01/12/22 18:48 Hgb 15.0 g/dL (11.5-15.3) 01/12/22 18:48 Hct 43.8 % (37.0-47.0) 01/12/22 18:48 MCV 93.0 fl (81-99) 01/12/22 18:48 MCH 31.8 pg (28.0-34.0) 01/12/22 18:48 MCHC 34.2 g/dL (30.0-36.0) 01/12/22 18:48 RDW 13.6 % (12.1-15.1) 01/12/22 18:48 Plt Count 185 10^3/cmm (130-400) 01/12/22 18:48 MPV 10.9 fL (7.4-10.4) H 01/12/22 18:48 Neut % (Auto) 63.1 % 01/12/22 18:48 Lymph % (Auto) 25.5 % 01/12/22 18:48 Vermilion % (Auto) 7.7 % 01/12/22 18:48 Eos % (Auto) 2.1 % 01/12/22 18:48 Baso % (Auto) 1.3 % 01/12/22 18:48 Neut # (Auto) 5.52 10^3/uL (1.8-7.7) 01/12/22 18:48 Lymph # (Auto) 2.2 10^3/uL (0.8-4.8) 01/12/22 18:48 Vermilion # (Auto) 0.7 10^3/uL (0.2-0.9) 01/12/22 18:48 Eos # (Auto) 0.2 10^3/uL (0.0-0.8) 01/12/22 18:48 Baso # (Auto) 0.1 10^3/uL (0.0-0.1) 01/12/22 18:48 Nucleated RBC % (auto) 0 % 01/12/22 18:48 Nucleated RBCs # 0.0 /100WBC 01/12/22 18:48 Sodium 136 mmol/L (136-145) 01/12/22 18:48 Potassium 4.0 mmol/L (3.5-5.1) 01/12/22 18:48 Chloride 103 mmol/L (98-107) 01/12/22 18:48 Carbon Dioxide 20 mmol/L (22-29) L 01/12/22 18:48 Anion Gap 17.0 (5-19) 01/12/22 18:48 BUN 15 mg/dL (8-23) 01/12/22 18:48 Creatinine 0.7 mg/dL (0.5-0.9) 01/12/22 18:48 GFR Calculation Not Reportable 01/12/22 18:48 Glucose 99 mg/dL (65-115) 01/12/22 18:48 Calculated Osmolality 283 mOsm/kg (285-295) L 01/12/22 18:48 Calcium 9.3 mg/dL (8.5-10.5) 01/12/22 18:48 Total Bilirubin 0.3 mg/dL (0.15-1.2) 01/12/22 18:48 AST 15 U/L (0-32) 01/12/22 18:48 ALT 10 U/L (0-33) 01/12/22 18:48 Alkaline Phosphatase 103 IU/L (35-105) 01/12/22 18:48 Total Protein 6.6 g/dL (6.6-8.7) 01/12/22 18:48 Albumin 3.7 g/dL (3.5-5.2) 01/12/22 18:48 Globulin 2.9 g/dL (1.3-4.6) 01/12/22 18:48 Discharge Plan Discharge Patient Disposition: Home Clinical Impression: PAD (peripheral artery disease) Condition: Stable Prescriptions: No Action chlorzoxazone 500 mg tablet 500 mg PO BID 30 Days Qty: 60 0RF amlodipine 10 mg tablet 10 mg PO DAILY 30 Days Qty: 30 0RF Rx Instructions: Needs follow up in 1 mo cholecalciferol (vitamin D3) 1,250 mcg (50,000 unit) capsule 50,000 unit PO .once a week Qty: 4 0RF clopidogrel 75 mg tablet 75 mg PO DAILY 90 Days Qty: 90 0RF simvastatin 20 mg tablet 20 mg PO DAILY 90 Days Qty: 90 0RF levothyroxine 50 mcg tablet 50 mcg PO DAILY 30 Days Qty: 30 0RF celecoxib [Celebrex] 100 mg capsule 200 mg PO BID Qty: 20 0RF hydrocodone-acetaminophen 5-325 mg tablet 1 tab PO Q4H PRN (Reason: pain) Qty: 20 0RF Discharge Orders: Discharge ED (Routine); Ordered 01/12/22 Ordered By: Cristofer Holliday Referrals: Estephania Young, INFORMATION TECHNOLOGY INTERN [Primary Care Provider] - Discharge Diet: Regular Discharge Activity: Increase activity as tolerated Activity Restrictions/Additional Instructions: Follow-up with medical provider as directed. manager parking will be counting in the next several days set up an appointment with cardiology/vascular for evaluation of bilateral leg pain. Continue taking all home medications as previously prescribed.. Return to the ER or your medical provider if condition worsens. Please read and understand discharge instructions. Thank you for choosing [facility] for your healthcare needs today. Please realize this is an emergency room and that we are providing you with a medical screening exam and this may not be complete and all inclusive of all the testing and or work up that you may need to determine your ailment or severity of your illness. It is very important that you follow up as instructed or that you return to the Emergency Department should you have concerns or if your condition changes or worsens in any way. Sign Out Sign Out Data: Patient Sign Out occurred on 01/12/22 at 22:48. Patient's care was discussed, and care was transferred from to PINO Hernandez. Coding Level of Care Code ED Real Estate Sales Supervisor for Narciso Fwluna Exam Comprehensive
--- NOTE | 2022-01-12 17:08 | USR_ITS ---
PROCEDURE INFORMATION: Exam: US Duplex Lower Extremity Veins, Bilateral Exam date and time: 01/12/2022 5:47 PM Age: 81 years old Clinical indication: Pain; Leg, lower; Bilateral; Additional info: Leg pain TECHNIQUE: Imaging protocol: Real-time Duplex ultrasound of the bilateral extremities with 2-D estrada scale, color Doppler flow and spectral waveform analysis with image documentation. Complete exam focused on the bilateral lower extremity veins. COMPARISON: CTA AbdAorta Runoff Leg [id number] 08/20/2018 9:07 AM FINDINGS: Right deep veins: Unremarkable. The common femoral, femoral, and proximal profunda femoral veins are patent without thrombus. Normal Doppler waveforms. Normal compressibility and/or augmentation response. Popliteal vein is not visible due to limited patient cooperation. Right superficial veins: Saphenofemoral junction is patent without thrombus. Left deep veins: Unremarkable. The common femoral, femoral, proximal profunda femoral and popliteal veins are patent without thrombus. Normal Doppler waveforms. Normal compressibility and/or augmentation response. Left superficial veins: Saphenofemoral junction is patent without thrombus. Soft tissues: Unremarkable. US/[place] [id number] IMPRESSION: 1. No evidence of deep vein thrombosis. 2. Limited assessment of the right lower extremity deep veins.
--- NOTE | 2022-01-12 17:09 | USR_ITS ---
PROCEDURE INFORMATION: Exam: US Duplex Lower Extremity Arteries Exam date and time: 01/12/2022 6:06 PM Age: 81 years old Clinical indication: Pain; Leg, lower; Bilateral; Additional info: Leg pain, per request of daughter TECHNIQUE: Imaging protocol: Real-time ultrasound scan of the arteries of the bilateral lower extremities with 2-D estrada scale, color Doppler flow and spectral waveform analysis. Images documented and saved. COMPARISON: [place] [id number] 01/12/2022 5:47 PM FINDINGS: Right external iliac artery: Abnormal monophasic waveform with sharp systolic upstroke. Peak systolic velocity 199 centimeters/second. Right common femoral artery: Abnormal monophasic waveform with sharp systolic upstroke. Peak systolic velocity 127 centimeters/second. Right superficial femoral artery: Abnormal monophasic waveform with sharp systolic upstroke. Peak systolic velocity 104 centimeters/second. Right popliteal artery: Not visible due to limited patient cooperation. Right calf/foot arteries: Right infrapopliteal arteries markedly abnormal monophasic parvus tardus waveforms. Peak systolic velocity in the posterior tibial artery is 41 centimeters/second. Dorsalis pedis artery 47 centimeters/second. Left external iliac artery: Mildly abnormal monophasic waveform with sharp systolic upstroke. Peak systolic velocity 171 centimeters/second. Left common femoral artery: Abnormal monophasic waveform with sharp systolic upstroke and peak systolic velocity of 93 centimeters/second. Left superficial femoral artery: Moderately abnormal monophasic waveform with blunted systolic upstroke and peak systolic velocity of 82 centimeters/second. Left popliteal artery: markedly abnormal parvus tardus waveform with peak systolic velocity of 35 centimeters/second. Left calf/foot arteries: Left posterior tibial artery is not visible. Left dorsalis pedis artery demonstrates a markedly abnormal parvus tardus waveform with peak velocity of 20 centimeters/second. Other findings: Irregular cardiac rhythm. US/[place] [id number] IMPRESSION: 1. No focal hemodynamically significant arterial stenosis is identified in the thighs bilaterally. 2. Right popliteal artery cannot be assessed due to limited patient cooperation. 3. Abnormal waveforms throughout the lower extremity arteries bilaterally suggests multifocal disease and/or upstream aortoiliac stenosis. CT could provide better assessment. 4. Markedly abnormal parvus tardus waveforms in the visible infrapopliteal arteries bilaterally suggesting multifocal disease. 5. Irregular cardiac rhythm.
[2022-01-12 17:59] VITALS: RESP 12
[2022-01-12 18:55] LABS: Basophils # 0.1 10^3/uL (0.0-0.1); Basophils % 1.3 %; Eosinophils # 0.2 10^3/uL (0.0-0.8); Eosinophils % 2.1 %; Hematocrit 43.8 % (37.0-47.0); Lymphocytes # 2.2 10^3/uL (0.8-4.8); Lymphocytes % 25.5 %; Mean Corpuscular HGB Conc 34.2 g/dL (30.0-36.0); Mean Corpuscular Hemoglobin 31.8 pg (28.0-34.0); Mean Platelet Volume 10.9 fL (7.4-10.4); Monocytes # 0.7 10^3/uL (0.2-0.9); Monocytes % 7.7 %; Neutrophils # 5.52 10^3/uL (1.8-7.7); Neutrophils % 63.1 %; Nucleated Red Blood Cells % 0 %; Platelet Count 185 10^3/cmm (130-400); Red Blood Count 4.71 10^6/uL (4.1-5.3); Red Cell Distribution Width 13.6 % (12.1-15.1); White Blood Count 8.7 10^3/uL (4.0-10.0)
[2022-01-12 18:57] VITALS: BP 160/99; PULSE 61; RESP 14; TEMP 36.8; O2SAT 93
[2022-01-12 19:25] LABS: Alanine Aminotransferase 10 U/L (0-33); Albumin Level 3.7 g/dL (3.5-5.2); Alkaline Phosphatase 103 IU/L (35-105); Blood Urea Nitrogen 15 mg/dL (8-23); Calcium 9.3 mg/dL (8.5-10.5); Carbon Dioxide 20 mmol/L (22-29); Chloride 103 mmol/L (98-107); Globulin 2.9 g/dL (1.3-4.6); Glucose 99 mg/dL (65-115); Osmolality Calculated 283 mOsm/kg (285-295); Sodium 136 mmol/L (136-145); Total Bilirubin 0.3 mg/dL (0.15-1.2); Total Protein 6.6 g/dL (6.6-8.7)
[2022-01-12 19:39] LABS: Aspartate Amino Transferase 15 U/L (0-32)
--- NOTE | 2022-01-12 19:47 | CTR_ITS ---
PROCEDURE INFORMATION: Exam: CTA Right Lower Extremity With Contrast Exam date and time: 01/12/2022 9:50 PM Age: 81 years old Clinical indication: Pain; Prior surgery; Surgery type: Appy. Iliac artery stent. Patient HX: C/O leg cramps. CT recommendedd due to sub optimal US imaging. ; Additional info: Abnormal wave form TECHNIQUE: Imaging protocol: Computed tomographic angiography of the Right lower extremity with contrast. 3D rendering (Not supervised by radiologist): MIP and/or 3D reconstructed images were created and reviewed. COMPARISON: CTA AbdAorta Runoff Leg [id number] 08/20/2018 9:07 AM FINDINGS: Right iliac arteries: Marked calcific plaque without significant stenosis in the right common iliac artery. Patent right external iliac artery stent. High-grade stenosis in the right internal iliac artery. Right femoral/popliteal arteries: Mild calcific plaque without stenosis in the right common femoral artery. Mild calcific plaque without stenosis in the right profunda femoris artery. Occlusion of the right superficial femoral artery from its origin to the distal thigh where it is reconstituted by muscular collaterals. Mild calcific plaque with less than 50% stenosis in the right popliteal artery. Right infrapopliteal arteries: Moderate calcific plaque in the right proximal infrapopliteal arteries and tibioperoneal trunk. There is patent 3 vessel runoff to the right foot. Left iliac arteries: High-grade stenosis in the left internal iliac artery. Patent stent in the left common and external iliac arteries. Left femoral/popliteal arteries: Moderate multifocal calcific plaque with 50-70% stenosis in the left popliteal artery. Left common femoral artery is patent and demonstrates mild calcific plaque without significant stenosis. There is complete occlusion of the left superficial femoral artery. There is reconstitution of the popliteal artery via muscular collaterals. Left infrapopliteal arteries: There is mild calcific plaque at multiple sites in the left infrapopliteal arteries. There is patent 3 vessel runoff to the left foot. Stomach and bowel: Visible portions of the small bowel and colon are unremarkable. Bladder: The urinary bladder is unremarkable. Reproductive: The uterus is unremarkable. There is no adnexal mass or large cyst. Intraperitoneal space: There is no free fluid. Bones/joints: Bones are unremarkable. There is a nondisplaced fracture of the superior margin of the right greater trochanter. Lymph nodes: No lymphadenopathy in the pelvis. Soft tissues: Visible soft tissues are unremarkable. PROCEDURE INFORMATION: Exam: CTA Left Lower Extremity With Contrast Exam date and time: 01/12/2022 9:50 PM Age: 81 years old Clinical indication: Pain; Prior surgery; Surgery type: Appy. Iliac artery stent. Patient HX: C/O leg cramps. CT recommendedd due to sub optimal US imaging. ; Additional info: Abnormal wave form TECHNIQUE: Imaging protocol: Computed tomographic angiography of the Left lower extremity with contrast. 3D rendering (Not supervised by radiologist): MIP and/or 3D reconstructed images were created by the technologist. Radiation optimization: All CT scans at this facility use at least one of these dose optimization techniques: automated exposure control; mA and/or kV adjustment per patient size (includes targeted exams where dose is matched to clinical indication); or iterative reconstruction. Contrast material: OMNI 350; Contrast volume: 95 ml; Contrast route: INTRAVENOUS (IV); COMPARISON: CTA AbdAorta Runoff Leg [id number] 08/20/2018 9:07 AM RADIATION DOSE METRICS: Total DLP (mGy-cm): 769.75 FINDINGS: Left iliac arteries: High-grade stenosis in the left internal iliac artery. Patent stent in the left common and external iliac arteries. Left femoral/popliteal arteries: Moderate multifocal calcific plaque with 50-70% stenosis in the left popliteal artery. Left common femoral artery is patent and demonstrates mild calcific plaque without significant stenosis. There is complete occlusion of the left superficial femoral artery. There is reconstitution of the popliteal artery via muscular collaterals. Left infrapopliteal arteries: There is mild calcific plaque at multiple sites in the left infrapopliteal arteries. There is patent 3 vessel runoff to the left foot. Right iliac arteries: Marked calcific plaque without significant stenosis in the right common iliac artery. Patent right external iliac artery stent. High-grade stenosis in the right internal iliac artery. Right femoral/popliteal arteries: Mild calcific plaque without stenosis in the right common femoral artery. Mild calcific plaque without stenosis in the right profunda femoris artery. Occlusion of the right superficial femoral artery from its origin to the distal thigh where it is reconstituted by muscular collaterals. Mild calcific plaque with less than 50% stenosis in the right popliteal artery. Right infrapopliteal arteries: Moderate calcific plaque in the right proximal infrapopliteal arteries and tibioperoneal trunk. There is patent 3 vessel runoff to the right foot. Stomach and bowel: Visible portions of the small bowel and colon are unremarkable. Bladder: The urinary bladder is unremarkable. Reproductive: The uterus is unremarkable. There is no adnexal mass or large cyst. Intraperitoneal space: There is no free fluid. Lymph nodes: No lymphadenopathy in the pelvis. Bones/joints: Bones are unremarkable. There is a nondisplaced fracture of the superior margin of the right greater trochanter. Soft tissues: Visible soft tissues are unremarkable. CT/[place] [id number] IMPRESSION: 1. Nondisplaced avulsion type fracture of the right greater trochanter. The fracture location raises suspicion for a pathologic fracture although no osseous lesion is visible. 2. 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 3. Chronic occlusion of the left superficial femoral artery, mildly progressive since 08/20/2018. The distal portion was patent previously but is now occluded. 4. 50-70% stenosis in the left popliteal artery is new since 08/20/2018. 5. Patent 3 vessel runoff to both feet. 6. Patent left common and external iliac artery stent. Patent right external iliac artery stent. 7. High-grade stenosis of the internal iliac arteries bilaterally.
[2022-01-12 20:21] VITALS: BP 154/76; PULSE 70; RESP 16; O2SAT 95
--- NOTE | 2022-01-12 20:33 | ECG_ITS ---
[facility] Test Date: 2022-01-12 Pat Name: Carine Cadena Department: Room: Gender: Female [employer]: : 1940 Requested By: Lacey Cody Order Number: [id number] Isak MD: Pk Wright M.D. Measurements Intervals [place] Rate: 66 P: 62 MS: 170 QRS: 73 QRSD: 92 T: 76 QT: 424 QTc: 447 Interpretive Statements SINUS RHYTHM WITH PREMATURE ATRIAL CONTRACTIONS INCOMPLETE RIGHT BUNDLE BRANCH BLOCK [90+ ms QRS DURATION, TERMINAL R IN V1/V2, 40+ ms S IN I/aVL/V4/V5/V6] ABNORMAL RHYTHM ECG Compared to ECG 04/05/2021 03:02:55 Sinus rhythm no longer present Electronically Signed On 01-13-2022 17:34:05 CDT by Pk Wright M.D. [id number] regina
[2022-01-12] MEDS: iohexol 350 mg/mL 100 mL Btl IV (21:58)
[2022-01-13 02:30] VITALS: PULSE 58; RESP 16; O2SAT 96
[2022-01-13 03:00] VITALS: PULSE 79; RESP 18; O2SAT 96
[2022-01-13] MEDS: LORazepam 0.5 mg Tablet PO (04:41)
--- NOTE | 2022-01-13 04:52 | PC.NURSE ---
Patient c/o leg cramps in her feet up to the ankles. Provider asked for something to help relax her muscle spasm in the foot. 0.5mg lorazepam given. Pt is resting now. Still waiting on her ride.
--- NOTE | 2022-01-13 06:12 | PC.NURSE ---
Son in law returned the call and states that he is a truck driver teamster and is currently in [place]. He states that his was not up here with her yesterday evening as she has bilat LE amputations and requires a wheelchair. She does not drive and is unable to pick her up. They do not have anyone that can come get her and he states that they were told a ride would be arranged. Attempted to contact the daughter x 2 post speaking with the son in law. RE: she does not qualify for a ride with EMS, [facility] and it is unsafe to send her in an uber with her mental status.
[2022-01-13 09:50] VITALS: BP 168/71; PULSE 64; O2SAT 96
--- NOTE | 2022-01-20 11:02 | DCPLANNER ---
Addendum entered by Dona Huerta 03/12/22 11:55: Patient had a follow up appointment scheduled for 02.12.22 with ortho - patient did not attend appointment. Addendum entered by Dona Huerta 02/10/22 12:12: Patient had a follow up appointment scheduled for Saturday February 12, 2022 at 9:00 with Jg Nath at ortho. Clinic will notify patient with appointment information. Original Note: manager small business had message to schedule a follow up appointment for patient with ortho. manager small business sent patients information to the front office staff at ortho. Patients information will be printed and reviewed. Clinic will call patient with appointment information.
--- NOTE | 2022-01-21 07:49 | DCPLANNER ---
Addendum entered by Dona Huerta 03/11/22 12:18: Patient had a follow up appointment scheduled with [facility] - patient did not attend appointment. Addendum entered by Dona Huerta 02/10/22 13:50: Patient has a follow up appointment scheduled for Friday, February 11, 2022 at 12:[address] Villalba at [facility]. Clinic will notify patient with appointment information. Original Note: regional service manager had message to schedule a follow up appointment for patient with cardiology. regional service manager sent patients information to the front office staff at [facility]. Patients information will be printed and reviewed. Clinic will call patient with appointment information.
== END 2022-01-13 09:53 | disposition home or self-care (01) ==
PROVIDERS: Physician Assistant; Emergency Provider Physician Assistant; PCP Registered Nurse
DX: I73.9 Peripheral vascular disease, unspecified (principal); Z79.02 Long term (current) use of antithrombotics/antiplatelets; Z86.73 Personal history of transient ischemic attack (TIA), and cerebral infarction without residual deficits; I10 Essential (primary) hypertension; E78.5 Hyperlipidemia, unspecified; F17.210 Nicotine dependence, cigarettes, uncomplicated; M79.605 Pain in left leg; M79.604 Pain in right leg
CPT/HCPCS: 36415; 73706; 80053; 85025; 93005; 93925; 93970; 99284; Q9967

== ENCOUNTER 2022-02-13 10:17 | Inpatient (IN) | payer MEDICARE, SELFPAY ==
[2022-02-13] VITALS (57 sets, daily range): BP systolic 137–184; BP diastolic 61–132; PULSE 55–106; RESP 4–20; TEMP 36.4–36.9; O2SAT 86–100; BMI 17.7; BMI 16.9
--- NOTE | 2022-02-13 11:15 | W.ED.EXTPRO ---
HPI - Extremity Problem General: Chief complaint: Extremity Problem,Nontraumatic Stated complaint: L FOOT/TOE PAIN, PERIPHERAL VASCULAR DZ Time Seen by Provider: 02/13/22 10:20 Source: patient Mode of arrival: EMS Limitations: other (dementia) History of Present Illness: Patient is a 80 year old female with a history of hypertension, hyperlipidemia, severe peripheral arterial disease, stroke, and AAA here for pain to her left lower extremity. Patient initially tells me this has been present for a week but then tells me she has been having issues with it for quite some time. She does have a history of dementia so her history is felt to be fairly inaccurate. Patient was hospitalized on 03/2021 with critical limb ischemia to that leg and underwent balloon angio/stenting to her left common iliac and left SFA. According to previous documentation she had underwent intervention in 2019 on that leg as well. Patient was seen in the emergency department last month due to bilateral leg cramps. She had an arterial ultrasound as well as a CTA abdominal aorta runoff performed. This showed chronic occlusion of her left superficial femoral artery mildly progressive since 2019. She had new 50 to 70% stenosis in her left popliteal artery new since 2019. She had patent left common and external iliac artery stents. She had patent three-vessel runoff to both feet at that time. Patient has been seen twice in the past week by walk in clinic and is supposed to see a vascular surgeon but has not done so. She continues to smoke daily. Complaint: extremity pain and cold extremity Onset (ago): day(s) Pain Consistency: constant Location: left and lower extremity Associated symptoms: Reports no associated symptoms; Deny chest pain or fever(s) Review of Systems Const: Denies: fever(s), chills, body aches, fatigue or malaise Card: Denies: chest pain Resp: Denies: dyspnea GI: Denies: abdominal pain Musc: Reports: extremity pain and other (coolness to L LE); Denies: neck pain, back pain, extremity swelling, joint redness or joint warmth Neuro: Denies: headache(s) PFS ED PFSH: Medical History Abdominal aortic aneurysm (AAA) Indicated in old records here but not notated on last CT images I could find Carotid artery disease Chronic lumbosacral pain History of stroke (~2017) HTN (hypertension) Hyperlipidemia Hypothyroidism Nicotine dependence, cigarettes, with other nicotine-induced disorders PAD (peripheral artery disease) Surgical History History of colonoscopy (~2018) History of coronary angiogram last [address] Wilkes showed no obstructive disease S/P angiogram of extremity last [address] Wilkes S/P appendectomy S/P insertion of iliac artery stent Family History Mother Heart disease Hypertension Stroke Other Diabetes Social History Smoking and tobacco status: current every day smoker Alcohol intake: never Household members: none Current occupational status: retired Physical Exam Const: COMMON NORMALS: no acute distress and alert GENERAL APPEARANCE: cooperative ORIENTATION/CONSCIOUSNESS: Yes awake, Yes oriented to person and Yes oriented to place OTHER: baseline dementia Resp: COMMON NORMALS: normal respiratory effort and clear to auscultation bilaterally AUSCULTATION: clear to auscultation bilaterally Cardio: COMMON NORMALS: regular rate and regular rhythm RATE: regular rate RHYTHM: regular rhythm Extremity: GENERAL: Yes normal exam except as noted LEFT LOWER EXTREMITY: Yes lower leg, Yes ankle joint and Yes foot & digits OTHER: pt has a purple/dusky appearing L LE from about her mid lower leg distally; her lower leg/ankle/foot are cool to the touch and I cannot palpate DP/PT pulses manually or with doppler Neuro: SENSORIUM/ORIENTATION: Yes alert, Yes oriented to person and Yes oriented to place Course Consultations: Consultation #1: Dr. Villalba-will plan on cath today; recommend admit to hospitalist; did not need CTA; was okay with current 70 unit/kg heparin bolus Consultation #2: Dr. Messina-accepts admission Vital Signs: Vital signs: Vital Signs Temperature 97.6 F 02/13/22 11:00 Pulse Rate 66 02/13/22 11:00 Respiratory Rate 16 02/13/22 11:00 Blood Pressure 137/64 02/13/22 11:00 Pulse Oximetry 97 02/13/22 11:00 Oxygen Delivery Me thod 02/13/22 11:00 MDM - Extremity (Nontraumatic) Medical Decision Making Spoke to US mir Kern in regards to her arterial ultrasound. He states she had trickle flow to her popliteal artery and no flow to her DP/PT. I have given patient a heparin bolus. I spoke to Dr. Villalba who will take her to the [facility]. He recommends admission to the hospitalist. He stated no CTA was needed at this time. I sat with patient extensively and explained the risks versus benefits of the procedure including failed restorative flow could result in leg amputation. She verbalizes understanding. I was also able to contact patient's daughter whom she resides with and explained these risks to her as well. Lab Data : 02/13/22 11:50 02/13/22 11:50 Laboratory Results WBC 8.0 10^3/uL (4.0-10.0) 02/13/22 11:50 RBC 4.80 10^6/uL (4.1-5.3) 02/13/22 11:50 Hgb 15.3 g/dL (11.5-15.3) 02/13/22 11:50 Hct 46.5 % (37.0-47.0) 02/13/22 11:50 MCV 96.9 fl (81-99) 02/13/22 11:50 MCH 31.9 pg (28.0-34.0) 02/13/22 11:50 MCHC 32.9 g/dL (30.0-36.0) 02/13/22 11:50 RDW 13.8 % (12.1-15.1) 02/13/22 11:50 Plt Count 171 10^3/cmm (130-400) 02/13/22 11:50 MPV 11.9 fL (7.4-10.4) H 02/13/22 11:50 Neut % (Auto) 68.4 % 02/13/22 11:50 Lymph % (Auto) 22.6 % 02/13/22 11:50 Mineral % (Auto) 7.0 % 02/13/22 11:50 Eos % (Auto) 1.0 % 02/13/22 11:50 Baso % (Auto) 0.9 % 02/13/22 11:50 Neut # (Auto) 5.45 10^3/uL (1.8-7.7) 02/13/22 11:50 Lymph # (Auto) 1.8 10^3/uL (0.8-4.8) 02/13/22 11:50 Mineral # (Auto) 0.6 10^3/uL (0.2-0.9) 02/13/22 11:50 Eos # (Auto) 0.1 10^3/uL (0.0-0.8) 02/13/22 11:50 Baso # (Auto) 0.1 10^3/uL (0.0-0.1) 02/13/22 11:50 Nucleated RBC % (auto) 0 % 02/13/22 11:50 Nucleated RBCs # 0.0 /100WBC 02/13/22 11:50 PT 12.70 SECONDS (12.1-14.9) 02/13/22 11:50 INR 0.92 (0.8-1.2) 02/13/22 11:50 APTT 31.2 SECONDS (23.9-36.7) 02/13/22 11:50 Sodium 140 mmol/L (136-145) 02/13/22 11:50 Potassium 4.0 mmol/L (3.5-5.1) 02/13/22 11:50 Chloride 101 mmol/L (98-107) 02/13/22 11:50 Carbon Dioxide 30 mmol/L (22-29) H 02/13/22 11:50 Anion Gap 13.0 (5-19) 02/13/22 11:50 BUN 13 mg/dL (8-23) 02/13/22 11:50 Creatinine 0.9 mg/dL (0.5-0.9) 02/13/22 11:50 GFR Calculation Not Reportable 02/13/22 11:50 Glucose 105 mg/dL (65-115) 02/13/22 11:50 Calculated Osmolality 290 mOsm/kg (285-295) 02/13/22 11:50 Calcium 9.5 mg/dL (8.5-10.5) 02/13/22 11:50 Total Bilirubin 0.3 mg/dL (0.15-1.2) 02/13/22 11:50 AST 16 U/L (0-32) 02/13/22 11:50 ALT 11 U/L (0-33) 02/13/22 11:50 Alkaline Phosphatase 103 IU/L (35-105) 02/13/22 11:50 Total Protein 6.9 g/dL (6.6-8.7) 02/13/22 11:50 Albumin 3.9 g/dL (3.5-5.2) 02/13/22 11:50 Globulin 3.0 g/dL (1.3-4.6) 02/13/22 11:50 Discharge Plan Discharge Patient Disposition: Admitted As Inpatient Clinical Impression: Critical limb ischemia of left lower extremity Condition: Stable Coding Level of Care Code 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
--- NOTE | 2022-02-13 11:24 | USCV_ITS ---
Carine Cadena Age: 81 Gender: F : 1940 Exam Date: 02/13/2022 11:56 Ordering Phys: Fabby Calle Technologist: Lowell Vasquez Exam Location: [facility] [place] Indication: no ankle pulses Risk Factors: Previous Vascular Surgery: RIGHT LEFT BP: 145.0 / 73.00 BP: 145.0/ 72.00 0 0 Waveform Velocity (cm/s) Velocity (cm/s) Waveform Iliac Prox 33.0 Monophasic Iliac Mid 33.0 Monophasic Iliac Distal 32.0 Monophasic [employer] MANAGER [employer]ODUCTION Monophasic 32.0 SFA Prox N/A SFA Mid N/A SFA Dist N/A POP 23.0 Monophasic MAT WORKER N/A DPA N/A FINDINGS Low velocity, delayed peaking and monophasic arterial Doppler waveforms in the iliac and Common femoral artery on the left side. Normal Doppler flow signals in the superficial femoral artery and in the infrapopliteal vessels. Low velocity continuous Doppler waveforms in the popliteal artery on the left side CONCLUSIONS 1. Abnormal Doppler velocities in the iliac and common femoral artery on the left side, suggestive of high-grade proximal stenosis. 2. Features of total occlusion of the superficial femoral artery and infrapopliteal vessels on the left side with a very faint flow signal in the popliteal artery. 3. No Doppler flow signals in the ankle vessels. Dr Vel Contreras MD [facility] (Electronically Signed) Final Date: 14 February 2022 15:49 S
[2022-02-13 11:57] LABS: Basophils # 0.1 10^3/uL (0.0-0.1); Basophils % 0.9 %; Eosinophils # 0.1 10^3/uL (0.0-0.8); Hematocrit 46.5 % (37.0-47.0); Hemoglobin 15.3 g/dL (11.5-15.3); Lymphocytes # 1.8 10^3/uL (0.8-4.8); Lymphocytes % 22.6 %; Mean Corpuscular HGB Conc 32.9 g/dL (30.0-36.0); Mean Corpuscular Hemoglobin 31.9 pg (28.0-34.0); Mean Corpuscular Volume 96.9 fl (81-99); Mean Platelet Volume 11.9 fL (7.4-10.4); Monocytes # 0.6 10^3/uL (0.2-0.9); Neutrophils # 5.45 10^3/uL (1.8-7.7); Neutrophils % 68.4 %; Nucleated Red Blood Cells % 0 %; Platelet Count 171 10^3/cmm (130-400); Red Cell Distribution Width 13.8 % (12.1-15.1)
[2022-02-13 12:15] LABS: INR 0.92 (0.8-1.2); Partial Thromboplastin Time 31.2 SECONDS (23.9-36.7)
[2022-02-13 12:21] LABS: Alanine Aminotransferase 11 U/L (0-33); Albumin Level 3.9 g/dL (3.5-5.2); Alkaline Phosphatase 103 IU/L (35-105); Aspartate Amino Transferase 16 U/L (0-32); Blood Urea Nitrogen 13 mg/dL (8-23); Calcium 9.5 mg/dL (8.5-10.5); Carbon Dioxide 30 mmol/L (22-29); Chloride 101 mmol/L (98-107); Glucose 105 mg/dL (65-115); Osmolality Calculated 290 mOsm/kg (285-295); Sodium 140 mmol/L (136-145); Total Bilirubin 0.3 mg/dL (0.15-1.2); Total Protein 6.9 g/dL (6.6-8.7)
[2022-02-13] MEDS: morphine 4 mg/mL SDV 1 mL IVP (13:50)
--- NOTE | 2022-02-13 13:58 | P.CONIM_ITS ---
Providers/Reason For Consult Consulting Physician/Specialty*: Cardiovascular medicine Reason for Consult*: Critical limb ischemia left lower extremity Requesting Physician: Emergency room Attending Physician: Hospitalist Primary Care Provider: JUAN Hood History of Present Illness History of Present Illness Carine Cadena is a 81 year old female who is well-known to the cardiovascular service. She is a noncompliant patient. She has severe bilateral lower extremity vascular disease and has had multiple interventions. She is a lifelong smoker and refuses to quit. She tells me that she lives with her daughter and son-in-law. They are nowhere near the hospital. I have not been able to talk to them. The patient has some level of dementia and so is a difficult historian at best. She came in complaining of left leg pain. When I asked her how long her leg has been hurting she said for quite some time . The best I was able to get out of her was approximately a month. She has a cool and somewhat reddened left foot. The cool sensation is from just above the ankle down. She has a long history of bilateral lower extremity peripheral arterial disease with bilateral lower SFA occlusion. The last intervention was in March of last year when she had critical limb ischemia of the left lower extremity. At that time a previously placed left common iliac stent was occluded. It was opened and she underwent atherectomy of the superficial femoral artery on the left. There was a residual lesion in the common iliac artery and an additional stent was placed. She was here in the emergency room just about a month ago and a lower extremity angiogram CT was performed. The common iliac artery on the left was patent but the superficial femoral artery on both sides was occluded. She has no known coronary disease and angiography several years ago was apparently without significant disease. As mentioned she is a lifelong smoker. There is information in her chart which suggest she has a AAA but I have never seen it documented. She has had a small stroke, carotid disease, some level of dementia, dyslipidemia, hypertension, noncompliance. Review of Systems Narrative: Review of systems is difficult because she has difficulty with her memory. Medications/Allergies Home Medications Medication Instructions Recorded Confirmed Last Taken Type cilostazol 50 mg tablet 50 mg PO BID #30 tabs 01/21/22 02/13/22 Unknown Rx tramadol 50 mg tablet 50 mg PO TID PRN pain #60 tabs 01/31/22 02/13/22 Unknown Rx Allergies Allergy/AdvReac Type Severity Reaction Status Date / Time influenza virus vaccine ts Allergy Unknown Unknown Verified 02/13/22 13:24 [id number] (36 mos,up) [From Fluarix] Penicillins Allergy Unknown Unknown Verified 02/13/22 13:24 pneumococcal vaccine Allergy Unknown Unknown Verified 02/13/22 13:24 procaine [From Novocain] Allergy Unknown Unknown Verified 02/13/22 13:24 tuberculin,PPD,multi-puncture Allergy Unknown Unknown Verified 02/13/22 13:24 PFSH Acute PFSH: Medical History Abdominal aortic aneurysm (AAA) Indicated in old records here but not notated on last CT images I could find Carotid artery disease Chronic lumbosacral pain History of stroke (~2016) HTN (hypertension) Hyperlipidemia Hypothyroidism Nicotine dependence, cigarettes, with other nicotine-induced disorders PAD (peripheral artery disease) Surgical History History of colonoscopy (~2018) History of coronary angiogram last [address] Wilkes showed no obstructive disease S/P angiogram of extremity last [address] Wilkes S/P appendectomy S/P insertion of iliac artery stent Family History Mother Heart disease Hypertension Stroke Other Diabetes Social History Smoking and tobacco status: current every day smoker Alcohol intake: never Household members: none Current occupational status: retired Vitals/I&O/Wt Last Vital Signs Temp 97.6 F 02/13/22 11:00 Pulse 66 02/13/22 11:00 Resp 16 02/13/22 11:00 BP 137/64 02/13/22 11:00 Pulse Ox 97 02/13/22 11:00 O2 Del Method 02/13/22 11:00 Weight last 48 hrs Weight 110 lb Physical Exam Narrative: GENERAL: General she seems somewhat confused, unkempt, dirty with closing articles with multiple cigarette burn holes. HEENT: Exam within normal limits. NECK: Supple without jugular vein distention. The carotid upstroke is normal without bruits. BACK: Exam normal. LUNGS: Clear. HEART: Regular rate and rhythm. ABDOMEN: Benign without organomegaly or tenderness. EXTREMITIES: No edema. The left foot is cold without pulses. There is some dependent rubor of the foot. The warm sensation extends below the knee on the left and just above the ankle where the dependent rubor appears the foot is cold. NEUROLOGIC: Exam normal. She does not have any sensation of the left foot. SKIN: Unremarkable. Data : 02/13/22 11:50 02/13/22 11:50 A&P Assessment and plan (1) Critical limb ischemia of left lower extremity: Status: Acute (2) Non-compliant patient: Status: Acute (3) Carotid artery disease: Status: Acute (4) Cigarette smoker two packs a day or less: Status: Acute (5) HTN (hypertension): Status: Chronic Qualifiers: Hypertension type: essential hypertension Qualified Code(s): I10 - Essential (primary) hypertension (6) Hyperlipidemia: Status: Chronic Qualifiers: Hyperlipidemia type: unspecified Qualified Code(s): E78.5 - Hyperlipidemia, unspecified (7) Nicotine dependence, cigarettes, with other nicotine-induced disorders: Status: Chronic (8) PAD (peripheral artery disease): Status: Chronic Plan She will need to have lower extremity angiography and an attempt at opening the left leg. This will likely be difficult given a chronic occlusion of the superficial femoral artery as well as 2 previous interventions of the common iliac artery. My suspicion is she has had a more acute occlusion of the iliac artery system which is then compromised the previously known collateral flow that she has to the popliteal and the 3 arteries below her knee. If we are unable to open this she will very likely lose her left leg below the knee. I have tried to be is upfront and honest with her about this as I possibly can. I am not sure she understands entirely as she told me no one ever told me that smoking was bothering my legs . 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
[2022-02-13] MEDS: ondansetron 2 mg/ML SDV 2 mL 4 MG IVP (14:05)
[2022-02-13] MEDS: heparin 5,000 unit/mL INJ 1 mL 3500 UNIT IVP (14:06)
--- NOTE | 2022-02-13 14:16 | XACV_ITS ---
Ht: 168 cm Wt: 50 kg BSA: 1.51 m2 Any Known Allergies: Lauren Gender: Female : 1940 Exam Type: Invasive Peripheral Vascular Procedure(s): Procedure Description: Peripheral Cath Diagnostic Procedure Exam Priority: Routine Abdominal Diagnostic Findings Small distal abdominal aortic aneurysm. Lower Extremity Diagnostic Findings This is a 81-year-old woman who is unhealthy. She is a lifelong smoker and refuses to stop. She is also noncompliant with medications. She has had intervention to both legs in the past. She has stents in both iliac arteries. The stents originate near the ostium of the common iliacs and extend down through the distal portion of the external iliacs. Most recently she presented with critical limb ischemia on the left in March of last year some 8 months ago. At that time she had an occluded left common iliac all the way down to the common femoral. Her superficial femoral artery was also occluded. She underwent balloon angioplasty of the existing stent in the distal left common iliac and the external iliac. She then underwent stenting of the ostial left common iliac. Subsequent to that she underwent atherectomy of the left superficial femoral artery. As mentioned, the patient continues to smoke. At least 4 to 6 weeks ago she began to have pain in her left foot. She had mentioned to her daughter the pain but refused to be seen. She came to the emergency room about a month ago and CAT scanning at that time revealed patent left common iliac and left external iliac but a reocclusion of the entire left superficial femoral artery. She was discharged. She has now returned to the emergency room today with worsening pain in her left foot. She has a cold pulseless left foot with dependent rubor of the left foot up to just above the ankle. Based on noninvasive studies and her physical exam I suspected that the iliac is now closed which compromised her previous collaterals from the profunda to the arteries below the knee causing the foot to be cold. I first entered the common femoral artery on the right. This vessel is patent up through the aorta. Angiography of the distal aorta and ostial common iliac on the left reveals the vessel to be occluded as expected. There is no flow past the common iliac artery on the left. After this I spent a great deal of time making an attempt to enter the left common iliac artery. I was able to get a needle in the vessel on about 4 or 5 occasions but was never able to thread a wire into the vessel. I therefore abandoned the procedure since there is no way to enter the popliteal artery and no way to enter from above because of the stents. I have a call into the surgeon. I had an extensive conversation with the patient's daughter and son-in-law who do not quite understand all of this. Her daughter just had both legs removed above the knee within the last several months. This is not an acute problem and has probably been present for at least 4 weeks. I doubt very seriously whether there is any way surgically to reestablish flow. A bypass is not very likely to be successful given the nature of the distal vessels and her continued smoking. I spoke to the patient prior to bringing her to the [facility] and told her I thought she was probably going to lose the leg. I am now even more convinced that a below the knee amputation will be the end result. I spent approximately 30 minutes talking to her daughter and son-in-law about this. Conclusions Subacute closure of the left common iliac and left external iliac arteries causing the loss of collateral flow to the distal left lower extremity and critical limb ischemia of the left foot. 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 Recommendations Left below the knee amputation. Hemodynamic Data Phase:Rest AO : 189.0 / 83.0 ( 128.0 ) @ 3:49:00 PM Access Site Site: Right Femoral artery Sheath Size: 6 Fr Hemost... Method: Suture Hemost... Success: Successful Procedure Details Findings Pre-Procedure Time Out. Identified patient by full name and date of as verbalized by the patient/guarantor. Does the consent match the physician's order: Yes. Accurate & Complete Informed Consent: Yes. Inpatient/Outpatient History & Physical on Chart: Yes. If H&P is completed, is and addenduem needed: N/A; If yes, is the addendum complete: N/A. Visualize and Verify Site with Patient/Guarantor: N/A. Relevant Radiology Images available: N/A. Pre-op teaching completed and patient verbalized understanding. The risks, benefits, and alternatives of sedation and/or procedure were discussed by physician. The patient agrees to continue. Procedure started. [facility] Indications: Other Acute Ischemic Leg. Correct patient, site and procedure confirmed by cath team. Current diagnosis: Acute leg ischemia. PERRLA. 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 Lungs clear x 5 lobes. IV Site on Arrival: 20 gauge in the left anticubital. IV Fluids: 0.9% NaCl at KVO. 0 mL infused prior to cardiovascular lab director. Pre Procedural Pulses: left dorsalis pedis was Absent. Oxygen started at 2liters/min via nasal canula. right groin was prepped with chloroprep then draped in the usual sterile fashion. left groin was prepped with chloroprep then draped in the usual sterile fashion. Physician notified. Baseline sample Acquired. HR: 44 BPM. Physician arrived. Physician scrubbed in. Time out performed with cath team. Lidocaine 1% infiltrated to the right groin. Admit Source: Emergency department. Arterial access obtained with micropuncture set. A 5FrFr RIM catheter in over wire. Glidewire inserted. Wire and catheter removed. Attempting L femoral access. Hand injection performed through the catheter. Lidocaine 1% infiltrated to the left groin. Arterial access obtained. Needle removed. Manual compression held. R femoral sheath flushed manually periodically to maintain patency. Physician scrubbed out. Medication's Wasted: Other = Versed 2 mg. A Suture was successful obtaining hemostatsis at the Right Femoral artery insertion site. Post Procedure: Pulses reassessed and unchanged. PERRLA. 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 No VTE prophylaxis required. A 16Fr olmedo catheter was inserted without resistance maintaining sterile technique. Bag to gravity with clear urine returning. Total IV fluids: 50 mL. Post-op diagnosis: Critical Limb Ischemia LLE. Complications: none. Estimated blood loss: 5mL-10mL. Responsiveness - Normal response to verbal stimuli; alert and oriented, PERRLA. Airway - Unaffected, no intervention required; spontaneous ventilation. Circulation: W/N/L, pulses unchanged. Nausea/Vomiting: No. Procedure completed. Patient transferred by bed to [facility]. Vital chart was stopped. Procedure Medications Start: 2:35 PM Stop: 2:35 PM Medication: Versed Amount: 2 mg Route: I.V. Start: 2:35 PM Stop: 2:35 PM Medication: Fentanyl Amount: 50 mcg Route: I.V. Start: 2:41 PM Stop: 2:41 PM Medication: Versed Amount: 1 mg Route: I.V. Start: 2:41 PM Stop: 2:41 PM Medication: Fentanyl Amount: 50 mcg Route: I.V. Start: 2:52 PM Stop: 2:52 PM Medication: Versed Amount: 1 mg Route: I.V. Start: 2:57 PM Stop: 2:57 PM Medication: Fentanyl Amount: 50 mcg Route: I.V. Start: 3:08 PM Stop: 3:08 PM Medication: Fentanyl Amount: 50 mcg Route: I.V. I, the attending physician, have reviewed and verified all procedure medications. Yes, all medications given per verbal order History/Risk Factors Hypertension: No Dyslipidemia: No Peripheral Arterial Disease (PAD): Yes Obesity: No Renal Disease: No Tobacco Use: Current/Recent(w/in 1 year) Prior Interventions PCI: No CABG: No Valve Surgery: No Report Signatures Finalized by Dr. Quinton Villalba MD on 02/13/2022 03:43 PM
--- NOTE | 2022-02-13 14:31 | P.HP_ITS ---
Providers/Chief Complaint Primary Care Provider: JUAN Hood Chief Complaint: L FOOT/TOE PAIN, PERIPHERAL VASCULAR DZ History of Present Illness Carine Cadena is a 81 year old female with a past medical history of hypertension, hyperlipidemia, hypothyroidism, current smoker, history of severe peripheral arterial disease, history of iliac stenting, history of multiple peripheral angiograms, who presents to [facility] as her right lower extremity has been cool, clammy, painful to touch for the last 2 days. Patient tells me for the last few days, she has been having increased falls, she tells me that 1 fall she had when she was working in the kitchen, she has been having coolness, clamminess, painful to touch of her left lower r extremity. She tells me that her pinky toe is completely blue. No fevers, no chills, although she is fallen, she has no back pain complaints, no hip pain complaints, no bony com plaints of pain. No chest pain, no cardiovascular history, no history of strokes, but does have a history of carotid artery disease, she does take cilostazol, Celebrex. In the emergency room she was found to have Review of Systems Const: Denies: fever(s) Eyes: Denies: change in vision Card: Denies: chest pain Medications/Allergies Home Medications Medication Instructions Recorded Confirmed Last Taken Type cilostazol 50 mg tablet 50 mg PO BID #30 tabs 01/21/22 02/13/22 Unknown Rx tramadol 50 mg tablet 50 mg PO TID PRN pain #60 tabs 01/31/22 02/13/22 Unknown Rx Allergies Allergy/AdvReac Type Severity Reaction Status Date / Time influenza virus vaccine ts Allergy Unknown Unknown Verified 02/13/22 13:24 [id number] (36 mos,up) [From Fluarix] Penicillins Allergy Unknown Unknown Verified 02/13/22 13:24 pneumococcal vaccine Allergy Unknown Unknown Verified 02/13/22 13:24 procaine [From Novocain] Allergy Unknown Unknown Verified 02/13/22 13:24 tuberculin,PPD,multi-puncture Allergy Unknown Unknown Verified 02/13/22 13:24 PFSH Acute PFSH: Medical History Abdominal aortic aneurysm (AAA) Indicated in old records here but not notated on last CT images I could find Carotid artery disease Chronic lumbosacral pain History of stroke (~2017) HTN (hypertension) Hyperlipidemia Hypothyroidism Nicotine dependence, cigarettes, with other nicotine-induced disorders PAD (peripheral artery disease) Surgical History History of colonoscopy (~2018) History of coronary angiogram last [address] Wilkes showed no obstructive disease S/P angiogram of extremity last [address] Wilkes S/P appendectomy S/P insertion of iliac artery stent Family History Mother Heart disease Hypertension Stroke Other Diabetes Social History Smoking and tobacco status: current every day smoker Alcohol intake: never Household members: none Current occupational status: retired Vitals/I&O/Wt Last Vital Signs Temp 97.6 F 02/13/22 11:00 Pulse 66 02/13/22 11:00 Resp 17 02/13/22 12:36 BP 137/64 02/13/22 11:00 Pulse Ox 92 02/13/22 12:36 O2 Del Method 02/13/22 12:36 Weight last 48 hrs Weight 49.895 kg Physical Exam Const: COMMON NORMALS: no acute distress and patient oriented x3 HENMT: COMMON NORMALS: normocephalic HEAD & SCALP: normocephalic Neck/C-Spine: COMMON NORMALS: no JVD Resp: COMMON NORMALS: normal respiratory effort, No retractions, No use of accessory muscles and clear to auscultation bilaterally AUSCULTATION: clear to auscultation bilaterally Cardio: COMMON NORMALS: regular rate, regular rhythm, S1 normal heart sound present and S2 normal heart sound present RATE: regular rate RHYTHM: regular rhythm HEART SOUNDS: S1 normal heart sound present and S2 normal heart sound present GI: COMMON NORMALS: Normal to inspection, nondistended, normoactive bowel sounds present, Soft to palpation, non-tender, No hepatosplenomegaly present, no masses and no bruits PALPATION: Yes Soft to palpation and Yes No hepatosplenomegaly present Extremity: NARRATIVE EXTREMITY EXAM: Left lower extremity, cool to touch, DP PT pulses nonpalpable, popliteal pulses barely palpable, cool, clammy, decreased sensation to pinprick, decreased sensation to cool Neuro: COMMON NORMALS: patient oriented x3 Psych: COMMON NORMALS: mental status grossly normal Data : 02/13/22 11:50 02/13/22 11:50 A&P Assessment and plan (1) Critical limb ischemia of left lower extremity: Status: Acute (2) Greater trochanter fracture: Status: Acute (3) Cigarette smoker two packs a day or less: Status: Acute (4) Hypothyroidism: Status: Acute (5) HTN (hypertension): Status: Chronic Qualifiers: Hypertension type: essential hypertension Qualified Code(s): I10 - Essential (primary) hypertension (6) Hyperlipidemia: Status: Chronic Qualifiers: Hyperlipidemia type: unspecified Qualified Code(s): E78.5 - Hyperlipidemia, unspecified Plan Acute critical limb ischemia -Left lower extremity DP, PT pulses nonpalpable, popliteal pulse barely palpable, cool, clammy, decreased sensation, painful, fifth digit is completely blue, bluish hue to 4 remaining digits -Has a history of peripheral arterial disease -Last arterial angiogram 2. 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 3. Chronic occlusion of the left superficial femoral artery, mildly progressive since 08/20/2018. The distal portion was patent previously but is now occluded. 4. 50-70% stenosis in the left popliteal artery is new since 08/20/2018. 5. Patent 3 vessel runoff to both feet. 6. Patent left common and external iliac artery stent. Patent right external iliac artery stent. 7. High-grade stenosis of the internal iliac arteries bilaterally. Plan -Has received heparin bolus in the emergency room -Dr. Villalba consulted, will take for peripheral angiogram and procedural interve ntion -Will admit to cardiac stepdown unit -Anticoagulation after cardiology team -Statin -Aspirin versus Plavix -Full code -SCDs for DVT prophylaxis, anticoagulation up to cardiology team after discu ssion Has a nondisplaced avulsion type fracture of the right greater trochanter, pathologic fracture versus osseous lesion visible -We will consider further work-up -Has had multiple falls -Does work for weight loss Hypertension continue home meds Hyperlipidemia continue meds Hypothyroidism continue home meds Attestations Medical Necessity Statement*: Patient requires hospitalization, inpatient, gr eater than 2 midnights, for critical limb ischemia Coding Level of Care Code 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
[2022-02-13 16:47] LABS: Thyroid Stimulating Hormone 5.34 uIU/mL (0.27-4.20)
[2022-02-13] MEDS: cilostazol 100 mg Tablet 50 MG PO (18:01)
[2022-02-13] MEDS: pantoprazole 40 mg SDV IVP (18:01)
[2022-02-13 18:48] LABS: Lactic Sepsis W/Reflex 0.5 mmol/L (0.5-2.2)
--- NOTE | 2022-02-13 19:21 | PC.NURSE ---
received from cardiac laborer salvage at 1535.report received.pt is sedated.sr with freq pac's on monitor.right groin with arterial sheath intact to pressurized system.right groin drsg is dry and intact.no hematoma noted.dopplerable dp pulse only on right foot.no pulses doppled in left foot.left foot cool to touch to appprox 1/4 up leg.line of demarcation drawn.
--- NOTE | 2022-02-13 19:27 | PC.NURSE ---
pt awakens easily now.right groin arterial sheath pulled at 1820.manual pressure held x 20 min.no hematoma formation noted.site dressed with 2x2 gauze and secured with biocclusive drsg.instructed pt in activity restrictions s/p arterial sheath pull.will cont to observe freq.
[2022-02-13] MEDS: atorvastatin 40 mg Tablet PO (20:19)
[2022-02-13] MEDS: morphine 4 mg/mL SDV 1 mL 2 MG IVP (22:46)
[2022-02-14] VITALS (16 sets, daily range): BP systolic 136–161; BP diastolic 68–117; PULSE 67–127; RESP 12–22; TEMP 36.4–37.1; O2SAT 92–96
[2022-02-14] MEDS: ketorolac 30 mg/mL INJ 15 MG IVP
[2022-02-14] MEDS: oxyCODONE-APAP 5-325 mg Tablet 1 TAB PO ×2 (01:02→09:13)
[2022-02-14] MEDS: HYDROmorphone 1 mg/mL INJ 1 mL 0.5 MG IVP (02:03)
[2022-02-14 03:55] LABS: Basophils # 0.1 10^3/uL (0.0-0.1); Basophils % 0.7 %; Eosinophils % 0.3 %; Hematocrit 44.8 % (37.0-47.0); Hemoglobin 14.9 g/dL (11.5-15.3); Lymphocytes # 1.6 10^3/uL (0.8-4.8); Lymphocytes % 15.5 %; Mean Corpuscular HGB Conc 33.3 g/dL (30.0-36.0); Mean Corpuscular Hemoglobin 30.9 pg (28.0-34.0); Mean Corpuscular Volume 92.9 fl (81-99); Mean Platelet Volume 11.7 fL (7.4-10.4); Monocytes # 0.6 10^3/uL (0.2-0.9); Neutrophils # 8.02 10^3/uL (1.8-7.7); Neutrophils % 77.2 %; Nucleated Red Blood Cells % 0 %; Platelet Count 154 10^3/cmm (130-400); Red Blood Count 4.82 10^6/uL (4.1-5.3); Red Cell Distribution Width 13.4 % (12.1-15.1); White Blood Count 10.4 10^3/uL (4.0-10.0)
[2022-02-14 04:08] LABS: INR 0.98 (0.8-1.2)
[2022-02-14 04:24] LABS: Alanine Aminotransferase 9 U/L (0-33); Albumin Level 3.7 g/dL (3.5-5.2); Alkaline Phosphatase 96 IU/L (35-105); Anion Gap 13.7 (5-19); Aspartate Amino Transferase 15 U/L (0-32); Blood Urea Nitrogen 10 mg/dL (8-23); Calcium 9.1 mg/dL (8.5-10.5); Carbon Dioxide 28 mmol/L (22-29); Chloride 103 mmol/L (98-107); Creatinine Clr Calc Pharmacy 43.0004; Globulin 2.6 g/dL (1.3-4.6); Glucose 110 mg/dL (65-115); Magnesium 1.8 mg/dL (1.7-2.3); Osmolality Calculated 292 mOsm/kg (285-295); Phosphorus 2.9 mg/dL (2.5-4.5); Potassium 3.7 mmol/L (3.5-5.1); Sodium 141 mmol/L (136-145); Total Bilirubin 0.5 mg/dL (0.15-1.2); Total Protein 6.3 g/dL (6.6-8.7)
[2022-02-14 04:33] LABS: Creatine Phosphokinase 115 U/L (26-192); NT Pro B Type Natriuretic Pept 2270 pg/mL (0-450)
[2022-02-14] MEDS: levothyroxine 50 mcg Tablet PO (06:12)
[2022-02-14] MEDS: heparin 5,000 unit/mL INJ 1 mL 5000 UNIT SUBCUT (07:30)
--- NOTE | 2022-02-14 07:30 | P.PN_ITS ---
Subjective Subjective: Carine has had a relatively uneventful night. 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 This is probably a subacute phenomenon having occurred over the last few weeks slowly. This compromised her collaterals which subsequently caused the foot isc hemia. Because of the anatomy and the previously placed stents there was no way to open this artery interventionally. I spoke to Dr. Pozo over the phone who looked at the films. He agreed that surgical intervention was not possible either. We agreed to treat her medically to see if her foot would warm up with anticoagulants and anti-platelet agents. She has been somewhat confused and rambunctious overnight and has required a one-to-one sitter. Her leg seems to be a little less painful. Vitals/I&O/Wt Last Vital Signs Temp 98.8 F 02/14/22 00:00 Pulse 75 02/14/22 06:00 Resp 12 02/14/22 04:00 BP 160/88 02/14/22 04:00 Pulse Ox 94 02/14/22 04:00 O2 Del Method 02/14/22 04:00 O2 Flow Rate 2 02/13/22 20:20 02/13/22 02/14/22 02/14/22 22:59 06:59 14:59 Intake Total 0 / 0 Output Total 800 / 800 900 / 1700 Balance -800 / -800 -900 / -1700 Weight last 48 hrs Weight 105 lb 5 oz Weight 110 lb Physical Exam Narrative: GENERAL: Thin, cachectic, slightly confused HEENT: Exam within normal limits. NECK: Supple without jugular vein distention. The carotid upstroke is normal without bruits. BACK: Exam normal. LUNGS: Clear. HEART: Regular rate and rhythm. ABDOMEN: Benign without organomegaly or tenderness. EXTREMITIES: No edema. The left leg is warm this morning. The dependent rubor has disappeared. There are no pulses in the foot however. NEUROLOGIC: Exam normal. SKIN: Unremarkable. Data : 02/14/22 03:31 02/14/22 03:31 A&P Assessment and plan (1) Critical limb ischemia of left lower extremity: Status: Acute (2) Non-compliant patient: Status: Acute (3) Carotid artery disease: Status: Acute (4) Cigarette smoker two packs a day or less: Status: Acute (5) Abdominal aortic aneurysm (AAA): Status: Acute Qualifiers: Presence of rupture: without rupture Qualified Code(s): I71.4 - Abdominal aortic aneurysm, without rupture (6) HTN (hypertension): Status: Chronic Qualifiers: Hypertension type: essential hypertension Qualified Code(s): I10 - Essential (primary) hypertension (7) Hyperlipidemia: Status: Chronic Qualifiers: Hyperlipidemia type: unspecified Qualified Code(s): E78.5 - Hyperlipidemia, unspecified (8) PAD (peripheral artery disease): Status: Chronic Plan Her foot is warm this morning. The anticoagulants and antiplatelet agents seem to be having some positive effect. I will add an aspirin low-dose and consider a factor Xa inhibitor. As long as we can keep her foot warm obviously she will not need amputation. We will see how it goes over the next day or so. Attestations Medical Necessity Statement*: Hospital management for critical limb ischemia. 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
[2022-02-14] MEDS: aspirin 81 mg EC Tablet PO (09:13)
[2022-02-14] MEDS: cilostazol 100 mg Tablet 50 MG PO ×2 (09:14→17:43)
--- NOTE | 2022-02-14 10:13 | ECG_ITS ---
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 Measurements Intervals [place] Rate: 123 P: [place]: QRS: 57 QRSD: 85 T: 68 QT: 343 QTc: 493 Interpretive Statements ATRIAL FIBRILLATION WITH RAPID VENTRICULAR RESPONSE ABNORMAL RHYTHM ECG Compared to ECG 01/12/2022 18:58:41 Sinus rhythm no longer present Atrial premature complex(es) no longer present Incomplete right bundle-branch block no longer present Electronically Signed On 02-14-2022 10:31:09 CDT by Eryn Sprague M.D. [id number]
--- NOTE | 2022-02-14 10:25 | CT_ITS ---
WS: [id number] CT HEAD TECHNIQUE: Noncontrast CT of the head obtained from the skullbase to the vertex. CLINICAL INFORMATION: ams COMPARISON: MRI 2017 DLP: 997.[address] scans at [facility] use at least one of these dose optimization techniques: automated e xposure control; mA and/or kV adjustment per patient size (includes targeted exams where dose is matc hed to clinical indication); or iterative reconstruction. FINDINGS: No evidence of intracranial hemorrhage or mass effect. Ventricular system and basal cisterns are white nt. Moderate small vessel changes with moderate parenchymal volume loss. Chronic infarct RIGHT inferi or frontal lobe with encephalomalacia. Encephalomalacia RIGHT anterior temporal lobe. Chronic lacunar infarct LEFT thalamus. Cavernous carotid calcification. Mastoid air cells well aerated. Paranasal si nuses are well aerated. CT/CT head wo con* [id number] IMPRESSION: 1. No evidence of intracranial hemorrhage or mass effect. 2. Moderate small vessel changes with moderate parenchymal volume loss. 3. Chronic encephalomalacia in the RIGHT inferior frontal lobe and RIGHT anter ior temporal lobe. This is unchanged since the prior MRI in 2017. 4. Tiny chronic lacunar infarct LEFT thalamus. 5. No acute intracranial findings.
--- NOTE | 2022-02-14 10:26 | PC.CHAP ---
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 [] Patient/Family/Request visit [] Outpatient visit [] Follow-up visit [] Physician referral [] Code/Alert [x] Routine visit [] Staff referral [] Actively dying [] Patient sleeping [] Family support [] [] Out of room [] Palliative care [] [] Receiving care in room [] Pre-surgical visit [] Trauma [] Long length of stay [] ICU visit [] Other: Relational/Emotional Strength [x] Patient feels connected with others/family/visitors/staff [] Distress [] Loneliness/isolation [] Abandonment Spirituality of Patient x[] Person of Camille [] Attends Gnosticism of their Camille [x] Believes in Prayer [] Reads Bible or Congregational materials [] There are Spiritual issues to be addressed Training Intern Interventions [x] Prayer x[] Active listening [] Non-anxious presence [x] Spiritual/emotional support [] Crisis/trauma care [] Spiritual counseling [] Bereavement support [] Provided bereavement packet [] Provided Bible/devotional materials [] Provided toy/stuffed animal, coloring book to patient or family member [] Provided Communion [] Anointing/[place] [] Salvation [x] Completed spiritual assessment [] Other: Impact on Illness or Injury [] Angry [] Fearful [] Anxious [] Often cries [] Exhaustion [] Unable to work [] Unable to attend lutheran [] Unable to walk/stand [] Unable to read [] Unable to drive [] Unable to eat/drink [] Unable to sleep [] Unable to be with family [] Patient intubated [] Other: Summary Time spent with patient 10 min
[2022-02-14] MEDS: metoprolol tartrate 25 mg Tablet PO ×2 (10:34→21:44)
[2022-02-14] MEDS: HYDROmorphone 1 mg/mL INJ 1 mL IVP ×2 (10:35→21:30)
--- NOTE | 2022-02-14 11:39 | XR_ITS ---
WS: [id number] Exam: XR chest 1V portable [id number] Date/Time of Exam: 02/14/2022 11:39 AM Reason For Exam: sob Comparison 04/05/2021. There are chronic interstitial changes throughout both lungs most marked in the bilateral upper lung zones. Ill-defined 2 cm nodule in the upper lobe of the left lung. The lungs are fully expanded. Norm al cardiomediastinal silhouette for technique. Regional bony elements are intact. Monitoring leads chen perimpose the chest. Recommendations: A nonemergent detailed PA and lateral chest radiograph would be helpful for further workup. XR/XR chest 1V portable [id number] IMPRESSION: 1. Chronic interstitial changes throughout both lungs. 2. Ill-defined 2 cm nodular density in the upper left lobe. Pulmonary neoplasm or metastatic disease not excluded.
--- NOTE | 2022-02-14 11:46 | CT_ITS ---
WS: [id number] CT PELVIS WITHOUT CONTRAST. HISTORY: fall TECHNIQUE: Contiguous imaging is performed of the pelvis without contrast. Coronal and sagittal refor mats are reviewed. All CT scans at [facility] use at least one of these dose optimization rachana hniques: automated exposure control; mA and/or kV adjustment per patient size (includes targeted exam s where dose is matched to clinical indication); or iterative reconstruction. DLP: 259.51 mGy.cm COMPARISON: 12/02/2021 Bones are osteopenic. Patient has a known fracture involving the superior RIGHT greater trochanter th at was described on 12/02/2021. Fracture line is still evident and slightly as compared to t he prior study. No acute fracture line is identified. I favor the fracture that is present on today's examination is the same fracture as before with slight dislocation. No femoral neck or femoral head fractures. Superior and inferior pubic rami are intact. Advanced atherosclerotic changes in the distal aorta and common iliac arteries. No sacral fracture. CT/CT bony pelvis [id number] IMPRESSION: 1. No acute pelvic fracture. 2. Remote fracture involving the superior RIGHT greater trochanter is reidenti fied. Mild displacement along the fracture line since 12/02/2021.
[2022-02-14 12:12] LABS: Troponin(5th) Baseline 37 ng/L (0-10)
[2022-02-14] MEDS: CLONazepam 0.5 mg Tablet 0.25 MG PO ×2 (12:58→21:30)
[2022-02-14] MEDS: potassium chloride ER 20 mEq Tablet PO (12:58)
[2022-02-14] MEDS: magnesium sulfate premix 2 GM/50 ML PIGGYBACK IV (12:59)
[2022-02-14] MEDS: heparin drip 25,000 UNIT/500 ML PREMIX 13 UNIT IV (12:59)
[2022-02-14 13:21] LABS: Erythrocyte Sedimentation Rate 10 mm/hr (0-15)
--- NOTE | 2022-02-14 13:37 | ECG_ITS ---
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 Measurements Intervals [place] Rate: 69 P: 75 AL: 175 QRS: 63 QRSD: 94 T: 77 QT: 461 QTc: 495 Interpretive Statements SINUS RHYTHM WITH OCCASIONAL VENTRICULAR PREMATURE COMPLEXES WITH OCCASIONAL SUPRAVENTRICULAR PREMATURE COMPLEXES INCOMPLETE RIGHT BUNDLE BRANCH BLOCK [90+ ms QRS DURATION, TERMINAL R IN V1/V2, 40+ ms S IN I/aVL/V4/V5/V6] PROLONGED QT INTERVAL Compared to ECG 02/14/2022 10:13:46 Ventricular premature complex(es) now present Incomplete right bundle-branch block now present Prolonged QT interval now present Atrial fibrillation no longer present Electronically Signed On 02-14-2022 17:46:44 CDT by Eryn Sprague M.D. [id number]
[2022-02-14 13:49] LABS: Troponin(5th) Baseline 41 ng/L (0-10)
[2022-02-14 13:50] LABS: C Reactive Protein 5.5 mg/L (0.0-4.9)
[2022-02-14 13:57] LABS: Procalcitonin 0.04 ng/mL (0-0.5)
--- NOTE | 2022-02-14 14:01 | PC.OT ---
Upon therapist arrival, pt lying in bed semi-reclined crying d/t pain with sitter present. Sitter is there for confusion. Pt declined therapy eval at this time. Will attempt OT eval tomorrow.
--- NOTE | 2022-02-14 14:01 | PM.PN ---
Subjective Subjective: Patient was seen this morning, she is complaining of severe left lower extremity pain, very tender to touch, I cannot palpate DP or PT pulses, her left lower extremity is slightly more warm compared to yesterday, but remains cool, clammy, at the tips continues to have a bluish hue, she continues to have severe tenderness all over her foot, -Attempts at revascularization yesterday by Dr. mirza were unfortunately unsuccessful, there was also discussion between Dr. quintana, and Dr. Pozo, patient was not deemed a good surgical candidate for revascularization procedure, given her chronic PAD, history of multiple stents, iliac stent, multiple revascularization interventions in the past -Plans are to give her a trial of medical therapy -However given how patient's foot looks this morning, she has a high risk of morbidity and mortality, high risk of sepsis, high risk of infection, she is likely going to need a below-knee amputation -I discussed my concerns with the patient, she has a compromise left lower extremity, acute limb ischemia, high risk of infection, high risk of necrosis, high risk of morbidity mortality, high risk of below-knee amputation, -However I did not get a sense that she understood the complexity of the situation, it seems like all the information glossed over -She is alert to person, not to place, not to time, does not know who the president is, in my opinion encephalopathic -I discussed the case in detail with patient's daughter and son-in-law in detail about above findings, they voiced understanding, all questions answered, opportunity to answer questions -They tell me that she has dementia, they do not want her to go to [place] [facility], they want to know her surgical risk -I discussed with them that without below-knee amputation, she would likely become septic, high risk morbidity and mortality, -In terms of the surgical risks, that is a discussion between her and the surgeon, but given her history of smoking, peripheral arterial disease, history of noncompliance, history of carotid artery disease hypertension, hyperlipidemia, she carries at least a moderate risk -However I will do a further work-up including chest x-ray, cardiac echo, blood work -Later on in the morning, patient developed A. fib with RVR, CT of the head was negative for acute stroke, she started on a heparin drip, metoprolol -Plan is to have a family meeting this afternoon Vitals/I&O/Wt Last Vital Signs Temp 98.8 F 02/14/22 00:00 Pulse 100 02/14/22 12:00 Resp 21 H 02/14/22 12:00 BP 154/110 02/14/22 12:00 Pulse Ox 94 02/14/22 12:00 O2 Del Method 02/14/22 12:00 O2 Flow Rate 2 02/13/22 20:20 02/13/22 02/14/22 02/14/22 22:59 06:59 14:59 Intake Total 0 / 0 Output Total 800 / 800 900 / 1700 Balance -800 / -800 -900 / -1700 Weight last 48 hrs Weight 47.769 kg Weight 49.895 kg Physical Exam Const: COMMON NORMALS: no acute distress OTHER: Alert to person, not to place, not to time Resp: COMMON NORMALS: normal respiratory effort, No retractions, No use of accessory muscles and clear to auscultation bilaterally AUSCULTATION: clear to auscultation bilaterally Cardio: COMMON NORMALS: regular rate, regular rhythm, S1 normal heart sound present and S2 normal heart sound present RATE: regular rate RHYTHM: regular rhythm HEART SOUNDS: S1 normal heart sound present and S2 normal heart sound present GI: COMMON NORMALS: Normal to inspection, nondistended, normoactive bowel sounds present, Soft to palpation and non-tender PALPATION: Yes Soft to palpation Extremity: NARRATIVE EXTREMITY EXAM: Left lower extremity, cool, clammy, exquisite tenderness to palpation, throughout the foot, toes have a bluish to, I could not palpate DP or PT pulses, popliteal pulses barely palpable Data : 02/14/22 03:31 02/14/22 03:31 A&P Assessment and plan (1) Critical limb ischemia of left lower extremity: Status: Acute (2) Greater trochanter fracture: Status: Acute (3) Cigarette smoker two packs a day or less: Status: Acute (4) Hypothyroidism: Status: Acute (5) HTN (hypertension): Status: Chronic Qualifiers: Hypertension type: essential hypertension Qualified Code(s): I10 - Essential (primary) hypertension (6) Hyperlipidemia: Status: Chronic Qualifiers: Hyperlipidemia type: unspecified Qualified Code(s): E78.5 - Hyperlipidemia, unspecified (7) Atrial fibrillation with RVR: Status: Acute (8) Acute encephalopathy: Status: Acute Plan Acute critical limb ischemia Patient is status post peripheral angiogram findings as below -?Subacute closure of the left common iliac and left external iliac arteries causing the loss of collateral flow to the distal left lower extremity and critical limb ischemia of the left foot. 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 -Left lower extremity DP, PT pulses nonpalpable, popliteal pulse barely palpable, cool, clammy, decreased sensation, painful, fifth digit is completely blue, bluish hue to 4 remaining digits, exquisite tenderness -Has a history of peripheral arterial disease -Last arterial angiogram 2. 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 3. Chronic occlusion of the left superficial femoral artery, mildly progressive since 08/20/2018. The distal portion was patent previously but is now occluded. 4. 50-70% stenosis in the left popliteal artery is new since 08/20/2018. 5. Patent 3 vessel runoff to both feet. 6. Patent left common and external iliac artery stent. Patent right external iliac artery stent. 7. High-grade stenosis of the internal iliac arteries bilaterally. Plan -Continue aspirin, statin, heparin drip -Dr. Quintana consulted, recommendations appreciated -Will likely need below-knee amputation -Given acute encephalopathy will start antibiotics for possible sepsis related to ischemia -Consult general surgery service -Statin -Aspirin -Cardiac echo, chest x-ray -Full code -SCDs for DVT prophylaxis, anticoagulation up to cardiology team after discussion Has a nondisplaced avulsion type fracture of the right greater trochanter, pathologic fracture versus osseous lesion visible -We will order CT of the hips -Has had multiple falls -Does work for weight loss Hypertension continue home meds Hyperlipidemia continue meds Hypothyroidism continue home meds A. fib with RVR -We will order CT of the head to rule out intracranial hemorrhage, embolic phenomenon embolic CVA -Start heparin drip -Metoprolol 25 mg daily -TSH, mag, Phos Acute encephalopathy -Does have underlying dementia -CT of the head -TSH -Blood cultures -Start broad-spectrum monotherapy -UA urine culture Attestations Medical Necessity Statement*: Patient requires hospitalization for acute encephalopathy, A. fib with RVR, acute limb ischemia, Coding Level of Care Code Acute Associate Professor Of Art for Chg Fwd Diagnoses Critical limb ischemia of left lower extremity I70.222 Greater trochanter fracture S72.113A Cigarette smoker two packs a day or less F17.210 Hypothyroidism E03.9 HTN (hypertension) I10 Hypertension type: essential hypertension Hyperlipidemia E78.5 Hyperlipidemia type: unspecified Atrial fibrillation with RVR I48.91 Acute encephalopathy G93.40
--- NOTE | 2022-02-14 14:22 | CT_ITS ---
WS: [id number] CT CHEST ANGIOGRAPHY WITH REFORMATS HISTORY: pulmonary nodule TECHNIQUE: Contiguous axial images are obtained through the chest during arterial injection of intrav enous contrast. Images are reconstructed to evaluate the pulmonary arteries. MIP imaging also reviewe d. All CT scans at [facility] use at least one of these dose optimization techniques: automat ed exposure control; mA and/or kV adjustment per patient size (includes targeted exams where dose is matched to clinical indication); or iterative reconstruction. CONTRAST: Omnipaque 350; 95 mL IV. DLP: 157.41 mGy.cm COMPARISON: Chest radiograph 02/14/2022 This study was performed as a CT angiogram. Good opacification of the central pulmonary arteries. No pulmonary embolism is identified. Moderate enlargement of the LEFT heart chambers. Moderate atheroscl erosis aorta. No pericardial or pleural effusions. Mild emphysema. Slightly spiculated nodule LEFT upper lobe measures 8 mm. No additional nodules are i dentified. There is mild groundglass opacification. Mildly prominent mediastinal and hilar lymph node s measuring up to 11 mm in diameter. These are probably reactive lymph nodes. Numerous surgical clips causing artifact at the GE junction. Bilateral nonobstructing calcifications upper pole each kidney. Increase in thoracic kyphosis. CT/CT angio chest PE protcl [id number] IMPRESSION: 1. No pulmonary embolism. 2. Slightly spiculated 11 mm nodule LEFT upper lobe needs further evaluation. Recommend PET/CT imaging or [address] follow-up 3. No pneumonia. 4. Centrilobular emphysema and mild CHF. 5. Moderate LEFT heart enlargement.
--- NOTE | 2022-02-14 15:17 | ECG_ITS ---
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 Measurements Intervals [place] Rate: 54 P: 62 [place]: 158 QRS: 60 QRSD: 88 T: 81 QT: 475 QTc: 451 Interpretive Statements SINUS BRADYCARDIA WITH PAC's and blocked PAC's Compared to ECG 02/14/2022 13:37:36 Sinus rhythm no longer present Ventricular premature complex(es) no longer present Incomplete right bundle-branch block no longer present Prolonged QT interval no longer present Electronically Signed On 02-14-2022 17:42:28 CDT by Eryn Sprague M.D. [id number]
[2022-02-14] MEDS: vancomycin 750 MG in sodium chloride 0.9% 250 ML 250 MG IV (15:48)
[2022-02-14 16:01] LABS: D Dimer 1.08 ug/mIFEU (0-0.59)
[2022-02-14] MEDS: iohexol 350 mg/mL 100 mL Btl IV (16:03)
[2022-02-14 16:20] LABS: Troponin 5 2HR 33.35 ng/L (0-10)
[2022-02-14 16:22] LABS: Troponin 5 2HR Delta -7.65 ABS# (0-10)
[2022-02-14] MEDS: sodium chloride 0.9% 1,000 ML 50 ML IV (16:44)
[2022-02-14] MEDS: pantoprazole 40 mg SDV IVP (17:43)
--- NOTE | 2022-02-14 17:46 | PM.CONSULT ---
Providers/Reason For Consult Consulting Physician/Specialty*: Dr. Tyler Meléndez, DO/ General Surgery Reason for Consult*: Left leg/foot ischemia Attending Physician: Quinton Villalba MD Primary Care Provider: JUAN Hood History of Present Illness History of Present Illness Carine Cadena is a 81 year old female who presented with pain and ischemia of her left foot. She is noncompliant and has undergone several revascularization procedures of her left lower extremity, and cardiology and vascular surgery have determined that she is no longer a candidate for futher revascularization procedures. General surgery was consulted for possible BKA. She was just started on a heparin drip right before I examined her. She is noncompliant and refusing to answer most questions. HPI and ROS are limited secondary to this. Review of Systems General: Reports: ROS unobtainable due to mental status Medications/Allergies Home Medications Medication Instructions Recorded Confirmed Last Taken Type cilostazol 50 mg tablet 50 mg PO BID #30 tabs 01/21/22 02/13/22 Unknown Rx tramadol 50 mg tablet 50 mg PO TID PRN pain #60 tabs 01/31/22 02/13/22 Unknown Rx Allergies Allergy/AdvReac Type Severity Reaction Status Date / Time influenza virus vaccine ts Allergy Unknown Unknown Verified 02/13/22 13:24 [id number] (36 mos,up) [From Fluarix] Penicillins Allergy Unknown Unknown Verified 02/13/22 13:24 pneumococcal vaccine Allergy Unknown Unknown Verified 02/13/22 13:24 procaine [From Novocain] Allergy Unknown Unknown Verified 02/13/22 13:24 tuberculin,PPD,multi-puncture Allergy Unknown Unknown Verified 02/13/22 13:24 Current Medications Generic Name Dose Route Start Last Admin Trade Name Freq PRN Reason Stop Dose Admin Aspirin 81 mg 02/14/22 09:00 02/14/22 09:13 Aspirin 81 Mg Ec Tablet PO 81 mg DAILY ASTRID Administration Atorvastatin Calcium 40 mg 02/13/22 21:00 02/13/22 20:19 Atorvastatin 40 Mg Tablet PO 40 mg BEDTIME ASTRID Administration Cilostazol 50 mg 02/13/22 18:00 02/14/22 17:43 Cilostazol 100 Mg Tablet PO 50 mg BID ASTRID Administration Clonazepam 0.25 mg 02/14/22 10:33 02/14/22 12:58 Clonazepam 0.5 Mg Tablet PO 0.25 mg BID PRN Administration ANXIETY Hydromorphone HCl 1 mg 02/14/22 10:26 02/14/22 10:35 Hydromorphone 1 Mg/Ml Inj 1 Ml IVP 1 mg Q4H PRN Administration SEVERE PAIN Heparin Sodium/Sodium Chloride 25,000 unit in 500 mls @ 0 mls/hr 02/14/22 10:45 02/14/22 12:59 Heparin Drip IV 13.61 unit/kg/hr .Q0M ASTRID 13 mls/hr Administration Protocol Per Protocol Imipenem/Cilastatin Sodium 250 100 mls @ 200 mls/hr 02/14/22 13:00 02/14/22 16:43 mg/ Dextrose IV Infused Q6H ASTRID Infusion Vancomycin HCl 750 mg/ Sodium 250 mls @ 250 mls/hr 02/14/22 14:00 02/14/22 16:57 Chloride IV Infused Q24H ASTRID Infusion Sodium Chloride 1,000 mls @ 50 mls/hr 02/14/22 14:30 02/14/22 16:44 Sodium Chloride 0.9% IV 50 mls/hr .Q20H ASTRID Administration Levothyroxine Sodium 50 mcg 02/14/22 06:00 02/14/22 06:12 Levothyroxine 50 Mcg Tablet PO 50 mcg QAM ASTRID Administration Metoprolol Tartrate 25 mg 02/14/22 10:30 02/14/22 10:34 Metoprolol Tartrate 25 Mg Tablet PO 25 mg Q12H ASTRID Administration Pantoprazole Sodium 40 mg 02/13/22 16:15 02/14/22 17:43 Pantoprazole 40 Mg Sdv IVP 40 mg Q24H ASTRID Administration PFSH Acute PFSH: Medical History Abdominal aortic aneurysm (AAA) Indicated in old records here but not notated on last CT images I could find Carotid artery disease Chronic lumbosacral pain History of stroke (~2016) HTN (hypertension) Hyperlipidemia Hypothyroidism Nicotine dependence, cigarettes, with other nicotine-induced disorders PAD (peripheral artery disease) Surgical History History of colonoscopy (~2018) History of coronary angiogram last [address] Wilkes showed no obstructive disease S/P angiogram of extremity last [address] Wilkes S/P appendectomy S/P insertion of iliac artery stent Family History Mother Heart disease Hypertension Stroke Other Diabetes Social History Smoking and tobacco status: current every day smoker Alcohol intake: never Household members: none Current occupational status: retired Vitals/I&O/Wt Last Vital Signs Temp 98.8 F 02/14/22 00:00 Pulse 100 02/14/22 16:00 Resp 21 H 02/14/22 16:00 BP 154/110 02/14/22 16:00 Pulse Ox 94 02/14/22 12:00 O2 Del Method 02/14/22 12:00 O2 Flow Rate 2 02/13/22 20:20 02/14/22 02/14/22 02/14/22 06:59 14:59 22:59 Intake Total 50 / 50 350 / 400 Output Total 900 / 1700 Balance -900 / -1700 50 / 50 350 / 400 Weight last 48 hrs Weight 105 lb 5 oz Weight 110 lb Physical Exam Narrative: Gen: NAD, not answering most questions Extremities: Left foot is warm, she is able to flex and extend her toes Data : 02/14/22 03:31 02/14/22 03:31 Micro: Microbiology 02/14/22 15:15 Blood Culture - Preliminary Blood SPECIMEN COLLECTED 02/14/22 15:20 Blood Culture - Preliminary Blood SPECIMEN COLLECTED A&P Assessment and plan (1) Critical limb ischemia of left lower extremity: Status: Acute Plan At this time, she is able to flex and extend her toes. She is not reporting pain to palpation and the tissue appears viable. I will re-examine her in the morning. Hopefully the anticoagulation will help, but I am available for BKA if necessary. Thank you for this consultation. Coding Level of Care Code Acute Stitcher Set Up Operator Automatic for Narciso Fall Diagnoses Critical limb ischemia of left lower extremity I70.222
--- NOTE | 2022-02-14 18:00 | ECG_ITS ---
[facility] Test Date: 2022-02-14 Pat Name: Carine Cadena Department: Room: 277 Gender: Female Tobacco Hanger: : 1940 Requested By: Dexter Messina Order Number: [id number] Reading MD: Quinton Villalba M.D. Measurements Intervals [place] Rate: 81 P: 78 [place]: 156 QRS: 62 QRSD: 90 T: 79 QT: 436 QTc: 507 Interpretive Statements SINUS RHYTHM WITH OCCASIONAL SUPRAVENTRICULAR PREMATURE COMPLEXES PROLONGED QT INTERVAL Compared to ECG 02/14/2022 15:19:08 Prolonged QT interval now present Sinus bradycardia no longer present Electronically Signed On 02-15-2022 11:59:32 CDT by Quinton Villalba M.D. [id number]
[2022-02-14 19:07] LABS: Partial Thromboplastin Time 86.1 SECONDS (23.9-36.7)
[2022-02-14 19:18] LABS: Troponin 5 6HR 42.59 ng/L (0-10); Troponin 5 6HR Delta 1.59 ng/L (0-12)
[2022-02-14 20:06] LABS: Thyroid Stimulating Hormone 10.19 uIU/mL (0.27-4.20)
[2022-02-14] MEDS: atorvastatin 40 mg Tablet PO (21:30)
[2022-02-15] VITALS (14 sets, daily range): BP systolic 108–174; BP diastolic 58–89; PULSE 64–114; RESP 15–35; TEMP 36.7–37.3; O2SAT 90–98
[2022-02-15 01:33] LABS: Basophils # 0.1 10^3/uL (0.0-0.1); Basophils % 0.5 %; Eosinophils # 0.1 10^3/uL (0.0-0.8); Eosinophils % 1.3 %; Hematocrit 43.9 % (37.0-47.0); Hemoglobin 14.6 g/dL (11.5-15.3); Lymphocytes # 2.3 10^3/uL (0.8-4.8); Lymphocytes % 24.9 %; Mean Corpuscular HGB Conc 33.3 g/dL (30.0-36.0); Mean Corpuscular Hemoglobin 31.7 pg (28.0-34.0); Mean Corpuscular Volume 95.4 fl (81-99); Mean Platelet Volume 11.7 fL (7.4-10.4); Monocytes # 0.6 10^3/uL (0.2-0.9); Monocytes % 6.4 %; Neutrophils # 6.06 10^3/uL (1.8-7.7); Neutrophils % 66.7 %; Nucleated Red Blood Cells % 0 %; Platelet Count 143 10^3/cmm (130-400); Red Cell Distribution Width 13.4 % (12.1-15.1); White Blood Count 9.1 10^3/uL (4.0-10.0)
[2022-02-15 01:46] LABS: INR 0.98 (0.8-1.2)
[2022-02-15 01:51] LABS: Lactate (Lactic Acid level) 0.8 mmol/L (0.5-2.2)
[2022-02-15 01:54] LABS: Partial Thromboplastin Time 80.5 SECONDS (23.9-36.7)
[2022-02-15 02:05] LABS: Alanine Aminotransferase < 5 U/L (0-33); Albumin Level 3.5 g/dL (3.5-5.2); Alkaline Phosphatase 84 IU/L (35-105); Anion Gap 11.8 (5-19); Aspartate Amino Transferase 18 U/L (0-32); Blood Urea Nitrogen 11 mg/dL (8-23); Calcium 8.7 mg/dL (8.5-10.5); Carbon Dioxide 28 mmol/L (22-29); Chloride 101 mmol/L (98-107); Creatine Phosphokinase 169 U/L (26-192); Creatinine Clr Calc Pharmacy 43.0004; Globulin 2.5 g/dL (1.3-4.6); Glucose 91 mg/dL (65-115); Magnesium 2.3 mg/dL (1.7-2.3); NT Pro B Type Natriuretic Pept 2550 pg/mL (0-450); Osmolality Calculated 283 mOsm/kg (285-295); Phosphorus 3.1 mg/dL (2.5-4.5); Potassium 3.8 mmol/L (3.5-5.1); Sodium 137 mmol/L (136-145); Total Bilirubin 0.5 mg/dL (0.15-1.2)
[2022-02-15] MEDS: levothyroxine 50 mcg Tablet PO (05:31)
[2022-02-15] MEDS: HYDROmorphone 1 mg/mL INJ 1 mL IVP ×4 (05:31→22:50)
--- NOTE | 2022-02-15 07:38 | P.PN_ITS ---
Subjective Subjective: The patient is much unchanged overnight. She continues to require a one-to-one sitter. She is agitated at times and uncooperative. She is also confused. Her baseline level of agitation and confusion is significantly worse than when she came in. The foot looks about the same. She was started on intravenous heparin yesterday after going into atrial fibrillation. Currently, she is back in sinus rhythm. Vitals/I&O/Wt Last Vital Signs Temp 98.2 F 02/14/22 23:45 Pulse 91 02/15/22 06:00 Resp 20 H 02/15/22 05:31 BP 136/86 02/15/22 03:54 Pulse Ox 93 02/15/22 03:54 O2 Del Method 02/14/22 23:45 O2 Flow Rate 2 02/13/22 20:20 02/14/22 02/15/22 02/15/22 22:59 06:59 14:59 Intake Total 889.95 / 939.95 174.983 / 1114.933 Output Total 1600 / 1600 250 / 1850 Balance -710.05 / -660.05 -75.017 / -735.067 Weight last 48 hrs Weight 105 lb 5 oz Weight 110 lb Physical Exam Narrative: GENERAL: She is she is asleep this morning and I did not awaken her for fear of worsening her agitation. HEENT: Exam within normal limits. NECK: Supple without jugular vein distention. The carotid upstroke is normal without bruits. BACK: Exam normal. LUNGS: Clear. HEART: Regular rate and rhythm. ABDOMEN: Benign without organomegaly or tenderness. EXTREMITIES: No edema. The left foot looks about the same. There is some redness and it is cool to the touch below the ankle. There are no pulses. NEUROLOGIC: Exam not done SKIN: Unremarkable. Data : 02/15/22 01:20 02/15/22 01:20 Micro: Microbiology 02/14/22 15:15 Blood Culture - Preliminary Blood SPECIMEN COLLECTED 02/14/22 15:20 Blood Culture - Preliminary Blood SPECIMEN COLLECTED A&P Assessment and plan (1) Acute encephalopathy: Status: Acute (2) Atrial fibrillation with RVR: Status: Acute (3) Critical limb ischemia of left lower extremity: Status: Acute (4) Carotid artery disease: Status: Acute (5) Non-compliant patient: Status: Acute (6) Cigarette smoker two packs a day or less: Status: Acute (7) Abdominal aortic aneurysm (AAA): Status: Acute Qualifiers: Presence of rupture: without rupture Qualified Code(s): I71.4 - Abdo norman aortic aneurysm, without rupture (8) HTN (hypertension): Status: Chronic Qualifiers: Hypertension type: essential hypertension Qualified Code(s): I10 - Essential (primary) hypertension (9) Hyperlipidemia: Status: Chronic Qualifiers: Hyperlipidemia type: unspecified Qualified Code(s): E78.5 - Hyperlipidemia, unspecified (10) PAD (peripheral artery disease): Status: Chronic Plan Problem on this occasion is that she has lost the collateral flow from the profunda to the arteries below the knee which is now causing her foot to be ischemic. She does not have any inflow from the top. In the last month the iliac artery has closed. She has had an occluded superficial femoral artery in that leg for several months at a minimum. Therefore, the leg is not likely viable for the long-term. We will have to allow the leg to declare itself at some point. I would suggest discontinuing the heparin and using a subcutaneous method of either heparin or Lovenox for now. Attestations Medical Necessity Statement*: Hospitalization for management of left lower extremity ischemia Coding Level of Care Code Established Pt Acute Mechanical Equipment Sales Engineer for Frankyg Erickd Patient Type Established History Detailed Exam Detailed Medical Decision Making Moderate Complexity Diagnoses Acute encephalopathy G93.40 Atrial fibrillation with RVR I48.91 Critical limb ischemia of left lower extremity I70.222 Carotid artery disease I77.9 Non-compliant patient Z91.19 Cigarette smoker two packs a day or less F17.210 Abdominal aortic aneurysm (AAA) I71.4 Presence of rupture: without rupture HTN (hypertension) I10 Hypertension type: essential hypertension Hyperlipidemia E78.5 Hyperlipidemia type: unspecified PAD (peripheral artery disease) I73.9
[2022-02-15 08:30] LABS: Partial Thromboplastin Time 57.4 SECONDS (23.9-36.7)
[2022-02-15] MEDS: enoxaparin 60 mg/0.6 mL Syringe 50 MG SUBCUT ×2 (09:29→21:14)
[2022-02-15] MEDS: cilostazol 100 mg Tablet 50 MG PO ×2 (09:29→17:34)
[2022-02-15] MEDS: metoprolol tartrate 25 mg Tablet PO ×2 (09:29→22:26)
[2022-02-15] MEDS: FUROsemide 10 mg/mL SDV 4mL 40 MG IVP (09:29)
[2022-02-15] MEDS: aspirin 81 mg EC Tablet PO (09:29)
[2022-02-15] MEDS: CLONazepam 0.5 mg Tablet 0.25 MG PO ×2 (09:29→21:13)
--- NOTE | 2022-02-15 10:25 | USCV_ITS ---
Carine Cadena Age: 81 Gender: F : 1940 Exam Date: 02/15/2022 06:33 Ordering Phys: Dexter Messina MD Technologist: Lowell Vasquez Exam Location: [facility] [place] Indication: tia BP: 136 / 86 HR: 64 Rhythm: Sinus Technical Quality: Adequate MEASUREMENTS (Male / Female) Normal Values 2D ECHO LV Diastolic Diameter PLAX 3.3 cm 4.2 - 5.9 / 3.9 - 5.3 cm LV Systolic Diameter PLAX 2.4 cm IVS Diastolic Thickness 1.0 cm 0.6 - 1.0 / 0.6 - 0.9 cm IVS Systolic Thickness 1.2 cm LVPW Diastolic Thickness 1.1 cm 0.6 - 1.0 / 0.6 - 0.9 cm LVPW Systolic Thickness 1.4 cm LVOT Diameter 2.0 cm LV Ejection Fraction 2D Teich 55.1 % LV Ejection Fraction MOD 2C 54.5 % LV Ejection Fraction 2C AL 56.1 % LA Diameter 2.5 cm Aorta at Sinotubular Diameter 1.8 cm IVC Diameter 1.1 cm DOPPLER AV Peak Velocity 128.0 cm/s LVOT Peak Velocity 99.0 cm/s AV Area Cont Eq vti 2.4 cm squared AV Area Cont Eq pk 2.5 cm squared MV Area PHT 5.0 cm squared Mitral E to A Ratio 0.8 MV E' Velocity 40.5 cm/s Mitral E to MV E' Ratio 11.2 Mitral E to LV E' Lateral Ratio 9.3 Mitral E to LV E' Septal Ratio 14.0 TR Peak Velocity 116.7 cm/s TR Peak Gradient 5.4 mmHg TV Peak E Velocity 94.0 cm/s Right Atrial Pressure 3.0 mmHg Pulmonary Artery Systolic Pressu 8.4 mmHg PV Peak Velocity 113.0 cm/s FINDINGS Left Ventricle Normal left ventricular size, systolic function and wall thickness, with no regional wall motion abnormalities. Grade I/IV diastolic dysfunction (abnormal relaxation filling pattern), normal to mildly elevated filling pressures. Left ventricular ejection fraction is estimated at 60%. Right Ventricle Normal right ventricular size and systolic function. Normal right ventricular systolic pressure. Right Atrium The right atrium is normal in size. Left Atrium The left atrium is normal in size. Mitral Valve Structurally normal mitral valve. Trace mitral valve regurgitation. Aortic Valve Structurally normal aortic valve without significant sclerosis or stenosis. There is no aortic regurgitation. Tricuspid Valve Structurally normal tricuspid valve without significant stenosis or regurgitation. Pulmonary artery systolic pressure is normal. Pulmonic Valve Pulmonic valve not well visualized. Pericardium Normal pericardium without effusion. Aorta Normal ascending aorta dimension. IVC Inferior vena cava not visualized. CONCLUSIONS Normal left ventricular size, systolic function and wall thickness, with no regional wall motion abnormalities. Grade I/IV diastolic dysfunction (abnormal relaxation filling pattern), normal to mildly elevated filling pressures. Left ventricular ejection fraction is estimated at 60%. Structurally normal mitral valve. Trace mitral valve regurgitation. Dr. Quinton Villalba MD (Electronically Signed) Final Date: 15 February 2022 11:47 S
--- NOTE | 2022-02-15 10:26 | USR_ITS ---
PROCEDURE INFORMATION: Exam: US Duplex Bilateral Extracranial Arteries, Carotid Arteries Exam date and time: 02/15/2022 6:49 AM Age: 81 years old Clinical indication: Altered mental status/memory loss. Confusion or disorientation. TECHNIQUE: Imaging protocol: Real-time Duplex ultrasound scan of the bilateral carotid and vertebral arteries combining estrada scale, color Doppler and spectral waveform analysis. Bilateral exam. Exam focused on the carotid arteries. COMPARISON: MRA Carotids w contrast [id number] 07/06/2017 10:19 AM FINDINGS: RIGHT: The peak systolic velocity within the proximal common carotid artery is 55 cm/s. The peak systolic velocity within the mid common carotid artery is 88 cm/s. The peak systolic velocity within the distal common carotid artery is 92 cm/s. The peak systolic velocity within the proximal internal carotid artery is 194 cm/s. The peak systolic velocity within the mid internal carotid artery is 265 cm/s. The peak systolic velocity within the distal internal carotid artery is 278 cm/s. The peak systolic velocity within the vertebral artery is 53 cm/s. Anterograde blood flow in the vertebral artery. LEFT: The peak systolic velocity within the proximal common carotid artery is 110 cm/s. The peak systolic velocity within the mid common carotid artery is 99 cm/s. The peak systolic velocity within the distal common carotid artery is 128 cm/s. The peak systolic velocity within the proximal internal carotid artery is 142 cm/s. The peak systolic velocity within the mid internal carotid artery is 170 cm/s. The peak systolic velocity within the distal internal carotid artery is 154 cm/s. The peak systolic velocity within the vertebral artery is 78 cm/s. Anterograde blood flow in the vertebral artery. US/CV carotid duplex BI* [id number] IMPRESSION: 1. There is elevated flow velocity in the right internal carotid artery suggesting greater than 70% stenosis. 2. There is elevated flow velocity in the left internal carotid artery suggesting between 50 and 69% stenosis. 3. Consider CTA neck to better characterize. REFERENCES: SRU CRITERIA. The degree of internal carotid artery stenosis is based on criteria defined by the Society of Radiologists in Ultrasound (SRU). Normal is no stenosis. Mild is less than 50% stenosis. Moderate is 50-69% stenosis. Severe is greater than 69% stenosis to near occlusion. Near occlusion is a markedly narrowed lumen. Total occlusion is no detectable patent lumen.
--- NOTE | 2022-02-15 10:36 | P.PN_ITS ---
Subjective Subjective: Patient continues to be confused and have left leg and foot pain. Vitals/I&O/Wt Last Vital Signs Temp 98.8 F 02/15/22 07:38 Pulse 71 02/15/22 07:38 Resp 17 02/15/22 07:38 BP 116/64 02/15/22 07:38 Pulse Ox 90 02/15/22 07:38 O2 Del Method 02/15/22 07:38 O2 Flow Rate 2 02/13/22 20:20 02/14/22 02/15/22 02/15/22 22:59 06:59 14:59 Intake Total 889.95 / 939.95 174.983 / 1114.933 100 / 100 Output Total 1600 / 1600 250 / 1850 Balance -710.05 / -660.05 -75.017 / -735.067 100 / 100 Weight last 48 hrs Weight 105 lb 5 oz Weight 110 lb Physical Exam Narrative: General: No acute distress, awake alert and oriented x2, not to time Extremities: Patient is able to flex and extend her toes on the left foot and the foot is relatively warm, however she has tenderness palpation from the calf to the toes on the left side Data : 02/15/22 01:20 02/15/22 01:20 Micro: Microbiology 02/14/22 15:15 Blood Culture - Preliminary Blood SPECIMEN COLLECTED 02/14/22 15:20 Blood Culture - Preliminary Blood SPECIMEN COLLECTED A&P Assessment and plan (1) Critical limb ischemia of left lower extremity: Status: Acute Plan I spoke with Dr. Villalba, at this point it seems inevitable that she will need an amputation. My concern is that a BKA wound will not heal and potentially result in an AKA in a relatively short amount of time. I spoke with the hospitalist and we will continue to optimize the patient and work with physical therapy. The family is supposed to call me later today, as the patient cannot consent for herself. We will tentatively plan for a below-knee amputation on Thursday. Attestations Medical Necessity Statement*: Patient needs further hospitalization for possible below-knee amputation on Thursday Coding Level of Care Code Acute Flue Cleaner for Narciso Fall Diagnoses Critical limb ischemia of left lower extremity I70.222
[2022-02-15] MEDS: potassium chloride ER 20 mEq Tablet PO (11:29)
[2022-02-15] MEDS: sodium chloride 0.9% 1,000 ML 50 ML IV (11:33)
--- NOTE | 2022-02-15 12:38 | PC.OT ---
Patient is too sleepy and nursing reports, patient is awaiting surgery on left LE. OT evaluation withheld this date.
--- NOTE | 2022-02-15 13:19 | PM.PN ---
Subjective Subjective: Yesterday evening, family's decision was to pursue with below-knee amputation Patient was seen this morning, she remains alert to person, to place, not to time, I did again discuss our plans for below-knee amputation, for acute limb ischemia, she agreed, but I do not feel that she understands the depth of the situation, seems like the information again crosses over her, she does not have any follow-up questions, will need to get consent for procedure from family, will need to discuss with Dr. Meléndez, Dr. Villalba, Vitals/I&O/Wt Last Vital Signs Temp 98.8 F 02/15/22 07:38 Pulse 99 02/15/22 12:00 Resp 35 H 02/15/22 12:56 BP 132/68 02/15/22 12:00 Pulse Ox 92 02/15/22 12:00 O2 Del Method 02/15/22 12:00 O2 Flow Rate 2 02/13/22 20:20 02/14/22 02/15/22 02/15/22 22:59 06:59 14:59 Intake Total 889.95 / 939.95 174.983 / 7597.746 1796.833 / 1280.833 Output Total 1600 / 1600 250 / 1850 1650 / 1650 Balance -710.05 / -660.05 -75.017 / -735.067 -369.167 / -369.167 Weight last 48 hrs Weight 47.769 kg Physical Exam Const: COMMON NORMALS: no acute distress Resp: COMMON NORMALS: normal respiratory effort, No retractions, No use of accessory muscles and clear to auscultation bilaterally AUSCULTATION: clear to auscultation bilaterally Cardio: COMMON NORMALS: regular rate, regular rhythm, S1 normal heart sound present and S2 normal heart sound present RATE: regular rate RHYTHM: regular rhythm HEART SOUNDS: S1 normal heart sound present and S2 normal heart sound present GI: COMMON NORMALS: Normal to inspection, nondistended, normoactive bowel sounds present and non-tender Extremity: NARRATIVE EXTREMITY EXAM: Left leg, DP PT pulses nonpalpable, does feel a bit warmer, but cool at the tips, has a bluish/purplish hue in the last 3 digits, does have tenderness to touch Data : 02/15/22 01:20 02/15/22 01:20 Micro: Microbiology 07/29/22 15:15 Blood Culture - Preliminary Blood SPECIMEN COLLECTED 02/14/22 15:20 Blood Culture - Preliminary Blood SPECIMEN COLLECTED A&P Assessment and plan (1) Critical limb ischemia of left lower extremity: Status: Acute (2) Greater trochanter fracture: Status: Acute (3) Cigarette smoker two packs a day or less: Status: Acute (4) Hypothyroidism: Status: Acute (5) HTN (hypertension): Status: Chronic Qualifiers: Hypertension type: essential hypertension Qualified Code(s): I10 - Essential (primary) hypertension (6) Hyperlipidemia: Status: Chronic Qualifiers: Hyperlipidemia type: unspecified Qualified Code(s): E78.5 - Hyperlipidemia, unspecified (7) Atrial fibrillation with RVR: Status: Acute (8) Acute encephalopathy: Status: Acute (9) Pulmonary nodule: Status: Acute (10) Fracture of greater trochanter of right femur: Status: Acute Plan Acute critical limb ischemia Patient is status post peripheral angiogram findings as below -?Subacute closure of the left common iliac and left external iliac arteries causing the loss of collateral flow to the distal left lower extremity and critical limb ischemia of the left foot. 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 -Left lower extremity DP, PT pulses nonpalpable, popliteal pulse barely palpable, cool, clammy, decreased sensation, painful, fifth digit is completely blue, bluish hue to 4 remaining digits, exquisite tenderness -Has a history of peripheral arterial disease -Last arterial angiogram 2. 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 3. Chronic occlusion of the left superficial femoral artery, mildly progressive since 08/20/2018. The distal portion was patent previously but is now occluded. 4. 50-70% stenosis in the left popliteal artery is new since 08/20/2018. 5. Patent 3 vessel runoff to both feet. 6. Patent left common and external iliac artery stent. Patent right external iliac artery stent. 7. High-grade stenosis of the internal iliac arteries bilaterally. -In terms of her risk for surgery, she is at moderate risk, cardiac echo pending, CT of the chest does show centrilobular emphysema, mild CHF, will receive Lasix for optimization Plan -Continue aspirin, statin, heparin drip -Dr. Villalba consulted, recommendations appreciated -Will likely need below-knee amputation -Given acute encephalopathy will start antibiotics for possible sepsis related to ischemia -Consult general surgery service -Statin -Aspirin -Cardiac echo, chest x-ray -Full code -SCDs for DVT prophylaxis, anticoagulation up to cardiology team after discussion History of right greater trochanteric hip fracture Bones are osteopenic. Patient has a known fracture involving the superior RIGHT greater trochanter that was described on 12/02/2021. Fracture line is still evident and slightly as compared to the prior study. No acute fracture line is identified. I favor the fracture that is present on today's examination is the same fracture as before with slight dislocation. No femoral neck or femoral head fractures. Superior and inferior pubic rami are intact. -According to family she is had this history of fracture for some time -Although she does not have any pain complaints, I have not stood her up since her foot ischemia, I do not know her mobility in the right hip, I do not know about her pain complaints in the right hip -According to family she has been mobile at home, quite independent at home -However it does concern me, if she were to have a left below-knee amputation, the mobility of the right hip -I will have physical therapy tentatively work with her today Has a slightly spiculated 11 mm nodule left upper lobe, -Discussed this with family, does have features concerning for malignancy is a smoker needs to follow-up as outpatient with pulmonary Protein calorie malnutrition High risk of falls Hypertension continue home meds Hyperlipidemia continue meds Hypothyroidism continue home meds A. fib with RVR -Converted back to normal sinus rhythm -Switch to therapeutic Lovenox -Metoprolol 25 mg daily Hypothyroidism, elevated TSH to 10, increase levothyroxine dose to 75 mcg once daily Acute encephalopathy -Does have underlying dementia -CT of the head 1.? No evidence of intracranial hemorrhage or mass effect. 2.? Moderate small vessel changes with moderate parenchymal volume loss. 3.? 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 This is unchanged since the prior MRI in 2017. 4.? Tiny chronic lacunar infarct LEFT thalamus. 5.? No acute intracranial findings. -Carotid artery ultrasound 1. There is elevated flow velocity in the right internal carotid artery suggesting greater than 70% stenosis. 2. There is elevated flow velocity in the left internal carotid artery suggesting between 50 and 69% stenosis. 3. Consider CTA neck to better characterize. -No focal neurologic deficits, follows commands, equal strength bilaterally, no facial droop no slurring of words -She we will at least require aspirin, statin, and anticoagulation on discharge, will need to do a CT at some point -TSH 10 -Blood cultures -Continue broad-spectrum biotic therapy -UA pending -Cardiac echo pending Attestations Medical Necessity Statement*: Patient requires hospitalization for acute encephalopathy, acute limb ischemia, Coding Level of Care Code Acute Lithographic Proofer for [facility] Fwd Diagnoses Critical limb ischemia of left lower extremity I70.222 Greater trochanter fracture S72.113A Cigarette smoker two packs a day or less F17.210 Hypothyroidism E03.9 HTN (hypertension) I10 Hypertension type: essential hypertension Hyperlipidemia E78.5 Hyperlipidemia type: unspecified Atrial fibrillation with RVR I48.91 Acute encephalopathy G93.40 Pulmonary nodule R91.1 Fracture of greater trochanter of right femur S72.111A
[2022-02-15] MEDS: vancomycin 750 MG in sodium chloride 0.9% 250 ML 250 MG IV (13:43)
[2022-02-15] MEDS: haloperidol inj 5 mg/mL INJ 1 mL 1 MG IVP (14:30)
[2022-02-15] MEDS: pantoprazole 40 mg SDV IVP (16:44)
[2022-02-15] MEDS: atorvastatin 40 mg Tablet PO (21:12)
[2022-02-16] VITALS (12 sets, daily range): BP systolic 141–174; BP diastolic 72–105; PULSE 68–102; RESP 16–20; TEMP 36.3–37.2; O2SAT 92–95
[2022-02-16] MEDS: haloperidol inj 5 mg/mL INJ 1 mL 1 MG IVP (01:21)
[2022-02-16 04:45] LABS: Basophils % 0.6 %; Eosinophils # 0.1 10^3/uL (0.0-0.8); Eosinophils % 1.7 %; Hematocrit 43.8 % (37.0-47.0); Hemoglobin 14.5 g/dL (11.5-15.3); Lymphocytes # 1.8 10^3/uL (0.8-4.8); Lymphocytes % 24.7 %; Mean Corpuscular HGB Conc 33.1 g/dL (30.0-36.0); Mean Corpuscular Hemoglobin 31.4 pg (28.0-34.0); Mean Corpuscular Volume 94.8 fl (81-99); Mean Platelet Volume 11.9 fL (7.4-10.4); Monocytes # 0.6 10^3/uL (0.2-0.9); Monocytes % 8.1 %; Neutrophils # 4.66 10^3/uL (1.8-7.7); Neutrophils % 64.6 %; Nucleated Red Blood Cells % 0 %; Platelet Count 142 10^3/cmm (130-400); Red Blood Count 4.62 10^6/uL (4.1-5.3); Red Cell Distribution Width 13.4 % (12.1-15.1); White Blood Count 7.2 10^3/uL (4.0-10.0)
[2022-02-16 05:07] LABS: INR 0.96 (0.8-1.2)
[2022-02-16 05:15] LABS: Lactate (Lactic Acid level) 1.1 mmol/L (0.5-2.2)
[2022-02-16 05:21] LABS: Alanine Aminotransferase 8 U/L (0-33); Albumin Level 3.2 g/dL (3.5-5.2); Alkaline Phosphatase 83 IU/L (35-105); Anion Gap 11.8 (5-19); Aspartate Amino Transferase 15 U/L (0-32); Blood Urea Nitrogen 12 mg/dL (8-23); Calcium 8.9 mg/dL (8.5-10.5); Carbon Dioxide 28 mmol/L (22-29); Chloride 102 mmol/L (98-107); Creatine Phosphokinase 116 U/L (26-192); Creatinine Clr Calc Pharmacy 43.0004; Globulin 2.7 g/dL (1.3-4.6); Glucose 113 mg/dL (65-115); Magnesium 1.9 mg/dL (1.7-2.3); NT Pro B Type Natriuretic Pept 1020 pg/mL (0-450); Osmolality Calculated 287 mOsm/kg (285-295); Potassium 3.8 mmol/L (3.5-5.1); Sodium 138 mmol/L (136-145); Total Bilirubin 0.3 mg/dL (0.15-1.2); Total Protein 5.9 g/dL (6.6-8.7)
[2022-02-16] MEDS: levothyroxine 75 mcg Tablet PO (06:05)
[2022-02-16] MEDS: sodium chloride 0.9% 1,000 ML 50 ML IV (06:06)
[2022-02-16] MEDS: HYDROmorphone 1 mg/mL INJ 1 mL IVP ×3 (06:25→18:58)
[2022-02-16] MEDS: aspirin 81 mg EC Tablet PO (08:25)
[2022-02-16] MEDS: FUROsemide 10 mg/mL SDV 4mL 40 MG IVP (08:25)
[2022-02-16] MEDS: enoxaparin 60 mg/0.6 mL Syringe 50 MG SUBCUT ×2 (08:25→20:25)
[2022-02-16] MEDS: cilostazol 100 mg Tablet 50 MG PO ×2 (08:25→16:56)
[2022-02-16] MEDS: potassium chloride ER 20 mEq Tablet PO (08:26)
[2022-02-16] MEDS: metoprolol tartrate 25 mg Tablet PO ×2 (08:35→21:32)
--- NOTE | 2022-02-16 09:00 | PM.PN ---
Subjective Subjective: Carine is less confused and less combative than yesterday. She is sitting on the side of the bed working with physical therapy. She complains of less pain in the foot. She is very sleepy today. Vitals/I&O/Wt Last Vital Signs Temp 97.9 F 02/16/22 08:00 Pulse 93 02/16/22 08:00 Resp 16 02/16/22 08:00 BP 174/105 02/16/22 08:00 Pulse Ox 93 02/16/22 08:00 O2 Del Method 02/16/22 08:00 O2 Flow Rate 2 02/13/22 20:20 02/15/22 02/16/22 02/16/22 22:59 06:59 14:59 Intake Total 1151.067 / 2431.900 1027.5 / 3459.400 240 / 240 Output Total 950 / 2600 400 / 3000 Balance 201.067 / -168.100 627.5 / 459.400 240 / 240 Physical Exam Narrative: GENERAL: In general she is unchanged from yesterday as far as her parents is concerned HEENT: Exam within normal limits. NECK: Supple without jugular vein distention. The carotid upstroke is normal without bruits. BACK: Exam normal. LUNGS: Clear. HEART: Regular rate and rhythm. ABDOMEN: Benign without organomegaly or tenderness. EXTREMITIES: No edema. The left foot is slightly warmer though it is dangling down as she is sitting on the side of the bed. There are no pulses in the left foot. The dependent rubor is much less. The foot is actually fairly warm today. NEUROLOGIC: Exam normal. SKIN: Unremarkable. Data : 02/16/22 04:33 02/16/22 04:33 Micro: Microbiology 02/15/22 04:30 MRSA Culture - Final Nose 02/14/22 15:15 Blood Culture - Preliminary Blood NEGATIVE TO DATE 02/14/22 15:20 Blood Culture - Preliminary Blood NEGATIVE TO DATE A&P Assessment and plan (1) Pulmonary nodule: Status: Acute (2) Acute encephalopathy: Status: Acute (3) Atrial fibrillation with RVR: Status: Acute (4) Critical limb ischemia of left lower extremity: Status: Acute (5) Non-compliant patient: Status: Acute (6) Carotid artery disease: Status: Acute (7) Cigarette smoker two packs a day or less: Status: Acute (8) HTN (hypertension): Status: Chronic Qualifiers: Hypertension type: essential hypertension Qualified Code(s): I10 - Essential (primary) hypertension (9) Hyperlipidemia: Status: Chronic Qualifiers: Hyperlipidemia type: unspecified Qualified Code(s): E78.5 - Hyperlipidemia, unspecified (10) PAD (peripheral artery disease): Status: Chronic Plan Continue to monitor. No changes made. She probably should be considered for placement. I do not know that she will be able to go home as she is. The social situation at home is less than desirable. Attestations Medical Necessity Statement*: Management of critical limb ischemia left lower extremity. Coding Level of Care Code Established Pt Acute Condemnation Engineer for [facility] Patient Type Established History Detailed Exam Detailed Medical Decision Making Moderate Complexity Diagnoses Pulmonary nodule R91.1 Acute encephalopathy G93.40 Atrial fibrillation with RVR I48.91 Critical limb ischemia of left lower extremity I70.222 Non-compliant patient Z91.19 Carotid artery disease I77.9 Cigarette smoker two packs a day or less F17.210 HTN (hypertension) I10 Hypertension type: essential hypertension Hyperlipidemia E78.5 Hyperlipidemia type: unspecified PAD (peripheral artery disease) I73.9
--- NOTE | 2022-02-16 11:25 | PC.SOCIAL ---
IMM update IMM updated. Copy Pg 2 provided. Initialled, dated, timed, and placed in chart.
[2022-02-16] MEDS: CLONazepam 0.5 mg Tablet 0.25 MG PO (11:32)
--- NOTE | 2022-02-16 12:28 | PC.NURSE ---
Patient's family approached nurse hester about confusion and frustration they felt because they did not understand what the plan of care was for the patient. Nurse hester reassured the family that the patient was receiving pain medication and physical therapy for the admission diagnosis. Dr. Meléndez came in and reinformed the family of the mass on the patient's lung and that it would be appropriate to withhold the surgery if they decided to do so. Dr. Meléndez mentioned placing the patient in a SNF, but deferred to Dr. Villalba and Dr. Messina due to the family stating they did not want the patient to go to a SNF due to a negative past family experience in a SNF.
--- NOTE | 2022-02-16 12:32 | P.PN_ITS ---
Subjective Subjective: Patient continues to moan in her sleep. However she moans even when I touch her right lower extremity. I talked with the family today Vitals/I&O/Wt Last Vital Signs Temp 97.9 F 02/16/22 08:00 Pulse 93 02/16/22 08:00 Resp 19 H 02/16/22 11:31 BP 174/105 02/16/22 08:00 Pulse Ox 92 02/16/22 11:31 O2 Del Method 02/16/22 08:00 O2 Flow Rate 2 02/13/22 20:20 02/15/22 02/16/22 02/16/22 22:59 06:59 14:59 Intake Total 1151.067 / 2431.900 1027.5 / 3459.400 340 / 340 Output Total 950 / 2600 400 / 3000 Balance 201.067 / -168.100 627.5 / 459.400 340 / 340 Physical Exam Narrative: General: No acute distress, awake alert and oriented x2, not to time Extremities: Patient is able to flex and extend her toes on the left foot and the foot is relatively warm, however she has tenderness palpation from the calf to the toes on the left side Data : 02/16/22 04:33 02/16/22 04:33 Micro: Microbiology 02/15/22 04:30 MRSA Culture - Final Nose 02/14/22 15:15 Blood Culture - Preliminary Blood NEGATIVE TO DATE 02/14/22 15:20 Blood Culture - Preliminary Blood NEGATIVE TO DATE A&P Assessment and plan (1) Critical limb ischemia of left lower extremity: Status: Acute Plan I talked with physical therapy. They say that she puts very little weight on the left foot. They are very concerned that if she gets a BKA and goes home that she will try to walk and fall. I spoke with family extensively they are still somewhat on the fence about BKA and its timing. Hospice is also a possibility that I will talk to family about We will tentatively plan for a below-knee amputation on Thursday. Attestations Medical Necessity Statement*: Patient needs further hospitalization as we are tentatively planning a below-knee amputation on Thursday Coding Level of Care Code Acute Manager Inpatient for [facility] Diagnoses Critical limb ischemia of left lower extremity I70.222
--- NOTE | 2022-02-16 12:34 | PC.OT ---
OT evaluation withheld this date due to patient non responsive to verbal requests/commands. Nursing reports administration of Dilaudid few minutes ago for her agitation. Patient is awaiting LE surgery.
--- NOTE | 2022-02-16 14:18 | P.PN_ITS ---
Vitals/I&O/Wt Last Vital Signs Temp 97.9 F 02/16/22 08:00 Pulse 93 02/16/22 08:00 Resp 19 H 02/16/22 11:31 BP 174/105 02/16/22 08:00 Pulse Ox 92 02/16/22 11:31 O2 Del Method 02/16/22 08:00 O2 Flow Rate 2 02/13/22 20:20 02/15/22 02/16/22 02/16/22 22:59 06:59 14:59 Intake Total 1151.067 / 2431.900 1027.5 / 3459.400 340 / 340 Output Total 950 / 2600 400 / 3000 Balance 201.067 / -168.100 627.5 / 459.400 340 / 340 Data : 02/16/22 04:33 02/16/22 04:33 Micro: Microbiology 02/15/22 04:30 MRSA Culture - Final Nose 02/14/22 15:15 Blood Culture - Preliminary Blood NEGATIVE TO DATE 02/14/22 15:20 Blood Culture - Preliminary Blood NEGATIVE TO DATE A&P Assessment and plan (1) Critical limb ischemia of left lower extremity: Status: Acute (2) Greater trochanter fracture: Status: Acute (3) Cigarette smoker two packs a day or less: Status: Acute (4) Hypothyroidism: Status: Acute (5) HTN (hypertension): Status: Chronic Qualifiers: Hypertension type: essential hypertension Qualified Code(s): I10 - Essential (primary) hypertension (6) Hyperlipidemia: Status: Chronic Qualifiers: Hyperlipidemia type: unspecified Qualified Code(s): E78.5 - Hyperlipidemia, unspecified (7) Atrial fibrillation with RVR: Status: Acute (8) Acute encephalopathy: Status: Acute (9) Pulmonary nodule: Status: Acute (10) Fracture of greater trochanter of right femur: Status: Acute Plan Acute critical limb ischemia Patient is status post peripheral angiogram findings as below -?Subacute closure of the left common iliac and left external iliac arteries causing the loss of collateral flow to the distal left lower extremity and critical limb ischemia of the left foot. 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 -Left lower extremity DP, PT pulses nonpalpable, popliteal pulse barely palpable, cool, clammy, decreased sensation, painful, fifth digit is completely blue, bluish hue to 4 remaining digits, exquisite tenderness -Has a history of peripheral arterial disease -Last arterial angiogram 2. 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 3. Chronic occlusion of the left superficial femoral artery, mildly progressive since 08/20/2018. The distal portion was patent previously but is now occluded. 4. 50-70% stenosis in the left popliteal artery is new since 08/20/2018. 5. Patent 3 vessel runoff to both feet. 6. Patent left common and external iliac artery stent. Patent right external iliac artery stent. 7. High-grade stenosis of the internal iliac arteries bilaterally Cardiac echo Normal left ventricular size, systolic function and wall ?thickness, with no regional wall motion abnormalities. Grade ?I/IV diastolic dysfunction (abnormal relaxation filling ?pattern), normal to mildly elevated filling pressures. Left ?ventricular ejection fraction is estimated at 60%. ?Structurally normal mitral valve. Trace mitral valve ?regurgitation.. -In terms of her risk for surgery, she is at moderate risk, does have bilateral carotid artery disease, CT of the chest does show centrilobular emphysema, 1 of 4 diastolic dysfunction Plan -On examination today, the lower extremities left lower extremity, continues to be cool, clammy, DP PT pulses nonpalpable, has significant pain in left lower extremity, does become agitated as soon as I touch the left lower extremity, she does have a mentation to apologize -Continue aspirin, statin, therapeutic Lovenox -Will likely need below-knee amputation, currently she is alert to person, not to place, not to time, she does not have the capacity in my mind to make decisions, as she remains encephalopathic, all information glasses over for her, she does not answer any questions, I feel that she does not understand the depth of and the severity of the situation -Given acute encephalopathy, likely metabolic, possible sepsis related to acute limb ischemia, likely underlying dementia, -Nonetheless have started on broad-spectrum biotic therapy -Dr. Villalba on consult -Consult general surgery service, still consulting with family numbers, possible surgical intervention on Thursday -Statin -Aspirin -Full code -SCDs and Lovenox for DVT prophylaxis -Disposition highly recommend for penitentiary placement, however patient son-in-law tells me that his own mother in a penitentiary and he will not want have mrna go to penitentiary, however patient's daughter has a bilateral amputee, son-in-law is a morning show newscast producer, so so they are unable to take care of her, patient does have nephews that can help take care of her. However given her home situation with underlying dementia, her increase requirements, requirements for surgery, her significant deconditioning, I think her best chance of optimal outcome is to go to penitentiary. I had an extensive discussion with patient's family about this on Thursday, discussed with him my concerns, my strong recommendation for her to go to penitentiary, however for now they declined History of right greater trochanteric hip fracture Bones are osteopenic. Patient has a known fracture involving the superior RIGHT greater trochanter that was described on 12/02/2021. Fracture line is still evident and slightly as compared to the prior study. No acute fracture line is identified. I favor the fracture that is present on today's examination is the same fracture as before with slight dislocation. No femoral neck or femoral head fractures. Superior and inferior pubic rami are intact. -According to family she is had this history of fracture for some time -Although she does not have any pain complaints, I have not stood her up since her foot ischemia, I do not know her mobility in the right hip, I do not know about her pain complaints in the right hip -According to family she has been mobile at home, quite independent at home -However it does concern me, if she were to have a left below-knee amputation, the mobility of the right hip -I will have physical therapy tentatively work with her, currently physical therapy she is able to bear weight in the right hip without any significant pain Has a slightly spiculated 11 mm nodule left upper lobe, -Discussed this with family, does have features concerning for malignancy is a s yariel needs to follow-up as outpatient with pulmonary Protein calorie malnutrition High risk of falls Hypertension continue home meds Hyperlipidemia continue meds Hypothyroidism continue home meds A. fib with RVR -Converted back to normal sinus rhythm -Switch to therapeutic Lovenox -Metoprolol 25 mg daily Hypothyroidism, elevated TSH to 10, increase levothyroxine dose to 75 mcg once daily Acute encephalopathy -Possibly progression of underlying dementia, could be encephalopathy possibly metabolic from acute limb ischemia versus sepsis -Although remains afebrile, blood cultures have been unremarkable, no sick leukocytosis -She does have bilateral carotid artery stenosis which possibly could be playing a role -Does have underlying dementia -CT of the head 1.? No evidence of intracranial hemorrhage or mass effect. 2.? Moderate small vessel changes with moderate parenchymal volume loss. 3.? 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 This is unchanged since the prior MRI in 2017. 4.? Tiny chronic lacunar infarct LEFT thalamus. 5.? No acute intracranial findings. -Carotid artery ultrasound 1. There is elevated flow velocity in the right internal carotid artery suggesting greater than 70% stenosis. 2. There is elevated flow velocity in the left internal carotid artery suggesting between 50 and 69% stenosis. 3. Consider CTA neck to better characterize. -No focal neurologic deficits, no facial droop, no slurring of words, at times does follow commands symptoms seem more global -She we will at least require aspirin, statin, and anticoagulation on discharge, will need to do a CTA head and neck at some point -TSH 10 -Blood cultures -Continue broad-spectrum biotic therapy Attestations Medical Necessity Statement*: Patient requires hospitalization for acute encephalopathy, acute limb ischemia, deconditioning, A. fib Coding Level of Care Code Acute Exhaust And Muffler Fitter for [facility] Fwd Diagnoses Critical limb ischemia of left lower extremity I70.222 Greater trochanter fracture S72.113A Cigarette smoker two packs a day or less F17.210 Hypothyroidism E03.9 HTN (hypertension) I10 Hypertension type: essential hypertension Hyperlipidemia E78.5 Hyperlipidemia type: unspecified Atrial fibrillation with RVR I48.91 Acute encephalopathy G93.40 Pulmonary nodule R91.1 Fracture of greater trochanter of right femur S72.111A
[2022-02-16] MEDS: vancomycin 750 MG in sodium chloride 0.9% 250 ML 250 MG IV (15:21)
[2022-02-16 16:28] LABS: Vancomycin Trough 5.8 ug/mL (10-15)
[2022-02-16] MEDS: pantoprazole 40 mg SDV IVP (16:55)
[2022-02-16] MEDS: atorvastatin 40 mg Tablet PO (20:23)
[2022-02-17] VITALS (12 sets, daily range): BP systolic 110–152; BP diastolic 61–86; PULSE 57–99; RESP 16–20; TEMP 36.4–36.6; O2SAT 92–97
[2022-02-17] MEDS: HYDROmorphone 1 mg/mL INJ 1 mL IVP ×4 (02:58→20:31)
[2022-02-17] MEDS: CLONazepam 0.5 mg Tablet 0.25 MG PO ×2 (04:04→17:23)
[2022-02-17 04:47] LABS: Basophils # 0.1 10^3/uL (0.0-0.1); Basophils % 0.6 %; Eosinophils # 0.2 10^3/uL (0.0-0.8); Hematocrit 46.2 % (37.0-47.0); Hemoglobin 15.2 g/dL (11.5-15.3); Lymphocytes # 1.7 10^3/uL (0.8-4.8); Lymphocytes % 20.5 %; Mean Corpuscular HGB Conc 32.9 g/dL (30.0-36.0); Mean Corpuscular Hemoglobin 31.3 pg (28.0-34.0); Mean Corpuscular Volume 95.1 fl (81-99); Mean Platelet Volume 12.1 fL (7.4-10.4); Monocytes # 0.7 10^3/uL (0.2-0.9); Monocytes % 8.6 %; Neutrophils # 5.48 10^3/uL (1.8-7.7); Neutrophils % 67.9 %; Nucleated Red Blood Cells % 0 %; Platelet Count 152 10^3/cmm (130-400); Red Blood Count 4.86 10^6/uL (4.1-5.3); Red Cell Distribution Width 13.4 % (12.1-15.1); White Blood Count 8.1 10^3/uL (4.0-10.0)
[2022-02-17 04:58] LABS: INR 0.93 (0.8-1.2)
[2022-02-17 05:03] LABS: Lactate (Lactic Acid level) 0.9 mmol/L (0.5-2.2)
[2022-02-17 05:24] LABS: Alanine Aminotransferase 8 U/L (0-33); Albumin Level 3.7 g/dL (3.5-5.2); Alkaline Phosphatase 79 IU/L (35-105); Anion Gap 11.7 (5-19); Aspartate Amino Transferase 22 U/L (0-32); Blood Urea Nitrogen 11 mg/dL (8-23); Calcium 9.1 mg/dL (8.5-10.5); Carbon Dioxide 29 mmol/L (22-29); Chloride 99 mmol/L (98-107); Creatinine Clr Calc Pharmacy 43.0004; Globulin 2.7 g/dL (1.3-4.6); Glucose 119 mg/dL (65-115); NT Pro B Type Natriuretic Pept 716 pg/mL (0-450); Osmolality Calculated 283 mOsm/kg (285-295); Phosphorus 3.3 mg/dL (2.5-4.5); Potassium 3.7 mmol/L (3.5-5.1); Sodium 136 mmol/L (136-145); Total Bilirubin 0.5 mg/dL (0.15-1.2); Total Protein 6.4 g/dL (6.6-8.7)
[2022-02-17] MEDS: levothyroxine 75 mcg Tablet PO (05:36)
[2022-02-17 06:00] LABS: Creatine Phosphokinase 322 U/L (26-192)
[2022-02-17 06:01] LABS: CKMB 9.6 ng/mL (0-5.34); CKMB Relative Index 2.9 % (0.0-10.4)
--- NOTE | 2022-02-17 08:17 | PM.PN ---
Subjective Subjective: Britany is pretty much unchanged this morning. She is quite confused at night. She still requires a one-to-one sitter. Occasionally makes moves to try to get out of bed. She tends to pick and pull at things. She seems less confused but not completely cognitively normal in the daytime. The leg is largely unchanged. There is still some mild mottling of the foot below the ankle. The foot is less red and is warmer than upon admission though not as warm as the other foot. She complains of some mild pain in the foot. She is participating minimally with physical therapy. The rhythm is sinus with PACs this morning. Her CPK is 322. This is up from 169 when she was admitted and 116 yesterday. Vitals/I&O/Wt Last Vital Signs Temp 97.6 F 02/17/22 04:00 Pulse 87 02/17/22 06:00 Resp 18 02/17/22 04:00 BP 141/72 02/17/22 04:00 Pulse Ox 95 02/17/22 04:00 O2 Del Method 02/16/22 23:58 O2 Flow Rate 2 02/16/22 23:58 02/16/22 02/17/22 02/17/22 22:59 06:59 14:59 Intake Total 1630 / 1970 100 / 2070 Output Total 975 / 3075 Balance 1630 / -130 -875 / -1005 Physical Exam Narrative: GENERAL: In general she is confused and sleepy HEENT: Exam within normal limits. NECK: Supple without jugular vein distention. The carotid upstroke is normal without bruits. BACK: Exam normal. LUNGS: Clear. HEART: Regular rate and rhythm. ABDOMEN: Benign without organomegaly or tenderness. EXTREMITIES: No edema. The right foot below the ankle is mildly discolored and minimally mottled. There are no pulses in that foot. It is only slightly cool to the touch. There is no pain upon palpation. NEUROLOGIC: Exam not done SKIN: Unremarkable. Data : 02/17/22 04:13 02/17/22 04:13 A&P Assessment and plan (1) PAD (peripheral artery disease): Status: Chronic (2) Nicotine dependence, cigarettes, with other nicotine-induced disorders: Status: Chronic (3) Hyperlipidemia: Status: Chronic Qualifiers: Hyperlipidemia type: unspecified Qualified Code(s): E78.5 - Hyperlipidemia, unspecified (4) HTN (hypertension): Status: Chronic Qualifiers: Hypertension type: essential hypertension Qualified Code(s): I10 - Essential (primary) hypertension (5) Critical lower limb ischemia: Status: Acute (6) Abdominal aortic aneurysm (AAA): Status: Acute Qualifiers: Presence of rupture: without rupture Qualified Code(s): I71.4 - Abdominal aortic aneurysm, without rupture (7) Carotid artery disease: Status: Acute (8) Non-compliant patient: Status: Acute (9) Critical limb ischemia of left lower extremity: Status: Acute (10) Atrial fibrillation with RVR: Status: Acute (11) Acute encephalopathy: Status: Acute (12) Fracture of greater trochanter of right femur: Status: Acute Plan We continue to pursue an observational status. I suspect she is going to need to be placed until such time as the foot declares itself and the leg needs to be removed. With this mental state and her leg, I do not think she can go home. The social situation at home is relatively poor. Attestations Medical Necessity Statement*: Hospitalization for management of left lower extremity ischemia. Coding Level of Care Code Established Pt Acute Medical Support Assistant for Narciso Fall Patient Type Established History Detailed Exam Detailed Medical Decision Making Moderate Complexity Diagnoses PAD (peripheral artery disease) I73.9 Nicotine dependence, cigarettes, with other nicotine-induced disorders F17.218 Hyperlipidemia E78.5 Hyperlipidemia type: unspecified HTN (hypertension) I10 Hypertension type: essential hypertension Critical lower limb ischemia I70.229 Abdominal aortic aneurysm (AAA) I71.4 Presence of rupture: without rupture Carotid artery disease I77.9 Non-compliant patient Z91.19 Critical limb ischemia of left lower extremity I70.222 Atrial fibrillation with RVR I48.91 Acute encephalopathy G93.40 Fracture of greater trochanter of right femur S72.111A
[2022-02-17] MEDS: cilostazol 100 mg Tablet 50 MG PO ×2 (08:28→17:23)
[2022-02-17] MEDS: enoxaparin 60 mg/0.6 mL Syringe 50 MG SUBCUT ×2 (08:28→20:37)
[2022-02-17] MEDS: aspirin 81 mg EC Tablet PO (08:28)
[2022-02-17] MEDS: metoprolol tartrate 25 mg Tablet PO ×2 (11:02→22:16)
--- NOTE | 2022-02-17 13:09 | PC.OT ---
upon chart review and discussion with AMBULATORY NURSE; patient alertness suggests she is not able to participate in skilled OT evaluation at this time. Will await possible surgery on Thursday and attempt performance of evaluation at that time.
[2022-02-17 14:28] LABS: Vancomycin Trough 7.1 ug/mL (10-15)
[2022-02-17] MEDS: vancomycin 750 MG in sodium chloride 0.9% 250 ML 250 MG IV (14:59)
--- NOTE | 2022-02-17 16:26 | PM.PN ---
Subjective Subjective: Patient continues to moan in her sleep. She did not wake up when I examined her left lower extremity. Vitals/I&O/Wt Last Vital Signs Temp 97.8 F 02/17/22 12:00 Pulse 86 02/17/22 12:00 Resp 18 02/17/22 13:30 BP 143/72 02/17/22 12:00 Pulse Ox 93 02/17/22 13:30 O2 Del Method 02/17/22 12:00 O2 Flow Rate 2 02/16/22 23:58 02/17/22 02/17/22 02/17/22 06:59 14:59 22:59 Intake Total 100 / 2070 100 / 100 250 / 350 Output Total 975 / 3075 Balance -875 / -1005 100 / 100 250 / 350 Physical Exam Narrative: General: No acute distress Extremities: Patient is able to flex and extend her toes on the left foot and the foot is relatively warm, however she has tenderness palpation from the calf to the toes on the left side Data : 02/17/22 04:13 02/17/22 04:13 A&P Assessment and plan (1) Critical limb ischemia of left lower extremity: Status: Acute Plan I spoke with family extensively. They are still somewhat on the fence about BKA and its timing. Hospice is also a possibility that I will talk to family about We will tentatively plan for a below-knee amputation on Thursday. Attestations Medical Necessity Statement*: Further hospitalization per hospitalist Coding Level of Care Code Acute Avionics Supervisor for Narciso Fall Diagnoses Critical limb ischemia of left lower extremity I70.222
[2022-02-17] MEDS: pantoprazole 40 mg SDV IVP (16:58)
--- NOTE | 2022-02-17 18:32 | P.PN_ITS ---
Subjective Subjective: Earlier having some pain in her left foot. Prefers to hang her feet off the edge of the bed. Currently resting, denies pain or discomfort. One-to-one sitter is having to keep telling her where she is. Vitals/I&O/Wt Last Vital Signs Temp 97.8 F 02/17/22 12:00 Pulse 88 02/17/22 16:00 Resp 20 H 02/17/22 16:00 BP 121/67 02/17/22 16:00 Pulse Ox 97 02/17/22 16:00 O2 Del Method 02/17/22 16:00 O2 Flow Rate 2 02/16/22 23:58 02/17/22 02/17/22 02/17/22 06:59 14:59 22:59 Intake Total 100 / 2070 100 / 100 468 / 568 Output Total 975 / 3075 Balance -875 / -1005 100 / 100 468 / 568 Physical Exam Const: GENERAL APPEARANCE: cooperative and frail appearing OTHER: Asleep HENMT: COMMON NORMALS: oropharynx normal Neck/C-Spine: COMMON NORMALS: no JVD Resp: COMMON NORMALS: normal respiratory effort and clear to auscultation bilaterally AUSCULTATION: clear to auscultation bilaterally Cardio: COMMON NORMALS: no JVD, regular rhythm, S1 normal heart sound present, S2 normal heart sound present and No murmurs present (Cardio) RHYTHM: regular rhythm HEART SOUNDS: S1 normal heart sound present and S2 normal heart sound present GI: COMMON NORMALS: Normal to inspection, nondistended, normoactive bowel sounds present, Soft to palpation and non-tender PALPATION: Yes Soft to palpation Extremity: COMMON NORMALS: no joint enlargement and no pedal edema OTHER: Cool to touch and purplish/red discoloration distal half of L foot Neuro: COMMON NORMALS: moves all extremities Skin: COMMON NORMALS: no rashes or lesions noted GENERAL SKIN EXAM: no rashes or lesions noted Data : 02/17/22 04:13 02/17/22 04:13 A&P Assessment and plan (1) Critical limb ischemia of left lower extremity: Tentatively considered for BKA on Thursday although reassessment and discussion is ongoing. Continue antiplatelet, anticoagulation and statin. Ongoing disposition planning, likely would benefit from going to skilled nursing given difficult home situation. Status: Acute (2) Greater trochanter fracture: Status: Acute (3) Acute encephalopathy: Likely acute encephalopathy on underlying dementia. Status: Acute (4) Cigarette smoker two packs a day or less: Status: Acute (5) Hypothyroidism: Status: Acute (6) HTN (hypertension): Status: Chronic Qualifiers: Hypertension type: essential hypertension Qualified Code(s): I10 - Esse ntial (primary) hypertension (7) Hyperlipidemia: Status: Chronic Qualifiers: Hyperlipidemia type: unspecified Qualified Code(s): E78.5 - Hyperli pidemia, unspecified (8) Atrial fibrillation with RVR: Status: Acute (9) Pulmonary nodule: Status: Acute (10) Fracture of greater trochanter of right femur: Status: Acute Plan History of right greater trochanteric hip fracture Bones are osteopenic. Patient has a known fracture involving the superior RIGHT greater trochanter that was described on 12/02/2021. Fracture line is still evident and slightly as compared to the prior study. No acute fracture line is identified. I favor the fracture that is present on today's examination is the same fracture as before with slight dislocation. No femoral neck or femoral head fractures. Superior and inferior pubic rami are intact. -According to family she is had this history of fracture for some time -Although she does not have any pain complaints, I have not stood her up since her foot ischemia, I do not know her mobility in the right hip, I do not know about her pain complaints in the right hip -According to family she has been mobile at home, quite independent at home -However it does concern me, if she were to have a left below-knee amputation, the mobility of the right hip -I will have physical therapy tentatively work with her, currently physical therapy she is able to bear weight in the right hip without any significant pain Has a slightly spiculated 11 mm nodule left upper lobe: needs to follow-up as outpatient with pulmonary Protein calorie malnutrition High risk of falls Hypertension continue home meds Hyperlipidemia continue meds Hypothyroidism continue home meds A. fib with RVR -Converted back to normal sinus rhythm -Therapeutic Lovenox -Metoprolol 25 mg daily Hypothyroidism, elevated TSH to 10, increased levothyroxine dose to 75 mcg once daily Acute encephalopathy -Possibly progression of underlying dementia, could be encephalopathy possibly metabolic from acute limb ischemia versus sepsis -Although remains afebrile, blood cultures have been unremarkable, no sick leukocytosis -She does have bilateral carotid artery stenosis which possibly could be playing a role -Does have underlying dementia Levothyroxine dose was adjusted. Will need follow-up on hypothyroidism. -CT of the head 1.? No evidence of intracranial hemorrhage or mass effect. 2.? Moderate small vessel changes with moderate parenchymal volume loss. 3.? 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 This is unchanged since the prior MRI in 2017. 4.? Tiny chronic lacunar infarct LEFT thalamus. 5.? No acute intracranial findings. -Carotid artery ultrasound 1. There is elevated flow velocity in the right internal carotid artery suggesting greater than 70% stenosis. 2. There is elevated flow velocity in the left internal carotid artery suggesting between 50 and 69% stenosis. 3. Consider CTA neck to better characterize. -No focal neurologic deficits, no facial droop, no slurring of words, at times does follow commands symptoms seem more global Attestations Medical Necessity Statement*: Continue admission for chest and and management of PAD, subacute progressive to critical ischemia of left lower extremity. Acute encephalopathy superimposed on chronic dementia. Disposition planning. Coding Level of Care Code Acute Commissioner Public Works for Chg Fwd Diagnoses Critical limb ischemia of left lower extremity I70.222 Greater trochanter fracture S72.113A Acute encephalopathy G93.40 Cigarette smoker two packs a day or less F17.210 Hypothyroidism E03.9 HTN (hypertension) I10 Hypertension type: essential hypertension Hyperlipidemia E78.5 Hyperlipidemia type: unspecified Atrial fibrillation with RVR I48.91 Pulmonary nodule R91.1 Fracture of greater trochanter of right femur S72.111A
[2022-02-17] MEDS: atorvastatin 40 mg Tablet PO (20:37)
[2022-02-18] VITALS (13 sets, daily range): BP systolic 114–159; BP diastolic 60–85; PULSE 67–98; RESP 16–20; TEMP 36.3–37.2; O2SAT 92–97
[2022-02-18] MEDS: HYDROmorphone 1 mg/mL INJ 1 mL IVP ×4 (03:34→18:59)
[2022-02-18 05:10] LABS: Basophils # 0.1 10^3/uL (0.0-0.1); Basophils % 0.7 %; Eosinophils # 0.2 10^3/uL (0.0-0.8); Eosinophils % 2.6 %; Hematocrit 43.6 % (37.0-47.0); Hemoglobin 14.5 g/dL (11.5-15.3); Lymphocytes # 1.9 10^3/uL (0.8-4.8); Lymphocytes % 25.6 %; Mean Corpuscular HGB Conc 33.3 g/dL (30.0-36.0); Mean Corpuscular Hemoglobin 31.5 pg (28.0-34.0); Mean Corpuscular Volume 94.8 fl (81-99); Monocytes # 0.6 10^3/uL (0.2-0.9); Monocytes % 8.3 %; Neutrophils # 4.62 10^3/uL (1.8-7.7); Neutrophils % 62.4 %; Nucleated Red Blood Cells % 0 %; Platelet Count 132 10^3/cmm (130-400); Red Cell Distribution Width 13.3 % (12.1-15.1); White Blood Count 7.4 10^3/uL (4.0-10.0)
[2022-02-18 05:17] LABS: INR 0.97 (0.8-1.2)
[2022-02-18 05:21] LABS: Lactate (Lactic Acid level) 0.9 mmol/L (0.5-2.2)
[2022-02-18] MEDS: levothyroxine 75 mcg Tablet PO (05:29)
[2022-02-18 05:42] LABS: Alanine Aminotransferase 9 U/L (0-33); Albumin Level 3.4 g/dL (3.5-5.2); Alkaline Phosphatase 79 IU/L (35-105); Anion Gap 13.3 (5-19); Aspartate Amino Transferase 25 U/L (0-32); Blood Urea Nitrogen 15 mg/dL (8-23); Calcium 9.4 mg/dL (8.5-10.5); Carbon Dioxide 29 mmol/L (22-29); Chloride 102 mmol/L (98-107); Creatine Phosphokinase 289 U/L (26-192); Globulin 2.6 g/dL (1.3-4.6); Glucose 118 mg/dL (65-115); NT Pro B Type Natriuretic Pept 419 pg/mL (0-450); Osmolality Calculated 292 mOsm/kg (285-295); Phosphorus 3.4 mg/dL (2.5-4.5); Potassium 4.3 mmol/L (3.5-5.1); Sodium 140 mmol/L (136-145); Total Bilirubin 0.5 mg/dL (0.15-1.2)
--- NOTE | 2022-02-18 07:32 | P.PN_ITS ---
Subjective Subjective: Carine is unchanged today. She states that she can walk on the foot however the sitter who was still present states that yesterday she and the aide stood her up and she cried with pain in her left foot. The patient states that physical therapy has not been by however the sitter states they were and the patient could barely stand on the foot and could not walk. Today the patient is complaining of pain in her left heel. The foot is the same color as it was yesterday, slightly discolored but warm. There are no pulses. She remains in sinus rhythm. Vitals/I&O/Wt Last Vital Signs Temp 98.0 F 02/18/22 04:00 Pulse 77 02/18/22 06:00 Resp 16 02/18/22 04:00 BP 121/67 02/18/22 04:00 Pulse Ox 92 02/18/22 04:00 O2 Del Method 02/18/22 00:00 O2 Flow Rate 2 02/17/22 20:00 02/17/22 02/18/22 02/18/22 22:59 06:59 14:59 Intake Total 688 / 788 340 / 1128 Output Total 750 / 750 300 / 1050 Balance -62 / 38 40 / 78 Weight last 48 hrs Weight 102 lb 12.8 oz Physical Exam Narrative: GENERAL: In general she is still slightly confused although less so than 2 days ago. HEENT: Exam within normal limits. NECK: Supple without jugular vein distention. The carotid upstroke is normal without bruits. BACK: Exam normal. LUNGS: Clear. HEART: Regular rate and rhythm. ABDOMEN: Benign without organomegaly or tenderness. EXTREMITIES: No edema. The left foot is slightly discolored and mildly mottled compared to the right. It is cooler than the right foot but not cold. There are no pulses in the left foot. NEUROLOGIC: Exam not done SKIN: Unremarkable. Data : 02/18/22 04:55 02/18/22 04:55 A&P Assessment and plan (1) Fracture of greater trochanter of right femur: Status: Acute (2) Pulmonary nodule: Status: Acute (3) Acute encephalopathy: Status: Acute (4) Atrial fibrillation with RVR: Status: Acute (5) Critical limb ischemia of left lower extremity: Status: Acute (6) Non-compliant patient: Status: Acute (7) Carotid artery disease: Status: Acute (8) Cigarette smoker two packs a day or less: Status: Acute (9) Abdominal aortic aneurysm (AAA): Status: Acute Qualifiers: Presence of rupture: without rupture Qualified Code(s): I71.4 - Abdominal aortic aneurysm, without rupture (10) HTN (hypertension): Status: Chronic Qualifiers: Hypertension type: essential hypertension Qualified Code(s): I10 - Essential (primary) hypertension (11) Hyperlipidemia: Status: Chronic Qualifiers: Hyperlipidemia type: unspecified Qualified Code(s): E78.5 - Hyperlipidemia, unspecified (12) PAD (peripheral artery disease): Status: Chronic Plan Today I am going to switch her over to low-dose Eliquis. I am also going to stop the aspirin. With triple therapy she is very likely to bleed. We will stop the Lovenox as well. We need to let this foot declare itself once and for all. She cannot go home like this. She cannot walk from bed to chair, chair to bathroom or bed to bathroom. Her social situation is very poor. My feeling is she will need to be placed. Attestations Medical Necessity Statement*: Continued management of ischemia of the left lower extremity. Coding Level of Care Code Established Pt Acute Associate Music Professor for Narciso Fall Patient Type Established History Detailed Exam Detailed Medical Decision Making Moderate Complexity Diagnoses Fracture of greater trochanter of right femur S72.111A Pulmonary nodule R91.1 Acute encephalopathy G93.40 Atrial fibrillation with RVR I48.91 Critical limb ischemia of left lower extremity I70.222 Non-compliant patient Z91.19 Carotid artery disease I77.9 Cigarette smoker two packs a day or less F17.210 Abdominal aortic aneurysm (AAA) I71.4 Presence of rupture: without rupture HTN (hypertension) I10 Hypertension type: essential hypertension Hyperlipidemia E78.5 Hyperlipidemia type: unspecified PAD (peripheral artery disease) I73.9
--- NOTE | 2022-02-18 07:44 | PC.OT ---
WILL CONTINUE TO HOLD OT EVALUATION UNTIL AFTER SCHEDULED SURGERY TOMORROW.
[2022-02-18] MEDS: cilostazol 100 mg Tablet 50 MG PO ×2 (08:07→22:02)
[2022-02-18] MEDS: apixaban 5 mg Tablet 2.5 MG PO ×2 (08:08→22:02)
[2022-02-18] MEDS: CLONazepam 0.5 mg Tablet 0.25 MG PO (08:08)
[2022-02-18] MEDS: vancomycin 750 MG in sodium chloride 0.9% 250 ML 250 MG IV (08:16)
[2022-02-18] MEDS: metoprolol tartrate 25 mg Tablet PO ×2 (09:34→22:02)
--- NOTE | 2022-02-18 09:44 | PC.SOCIAL ---
IMM Update Imm updated with patient, copy of page 2 provided. Patient verbalized understanding. Copy initialed, dated and timed, placed in chart.
[2022-02-18] MEDS: pantoprazole 40 mg SDV IVP (15:51)
--- NOTE | 2022-02-18 15:55 | PM.PN ---
Subjective Subjective: I had a long conversation with the daughter and son-in-law today. They would very much rather she went home with them rather than to a retirement. Patient's condition is essentially unchanged Vitals/I&O/Wt Last Vital Signs Temp 98.9 F 02/18/22 15:27 Pulse 67 02/18/22 15:27 Resp 16 02/18/22 15:27 BP 125/60 02/18/22 15:27 Pulse Ox 95 02/18/22 15:27 O2 Del Method 02/18/22 07:32 O2 Flow Rate 2 02/17/22 20:00 02/18/22 02/18/22 02/18/22 06:59 14:59 22:59 Intake Total 340 / 1128 630 / 630 Output Total 300 / 1050 Balance 40 / 78 630 / 630 Weight last 48 hrs Weight 102 lb 12.8 oz Physical Exam Narrative: General: No acute distress Extremities: Patient is able to flex and extend her toes on the left foot and the foot is relatively warm, however she has tenderness palpation from the calf to the toes on the left side Data : 02/18/22 04:55 02/18/22 04:55 A&P Assessment and plan (1) Critical limb ischemia of left lower extremity: Status: Acute Plan After long conversation with patient's daughter and son-in-law, they would prefer to avoid surgery now or maybe ever. They would like her to go home with them under hospice care. Recommend hospice consult. No acute surgical intervention Attestations Medical Necessity Statement*: Further hospitalization per hospitalist Coding Level of Care Code Acute Womens Volleyball Coach for Narciso Fall Diagnoses Critical limb ischemia of left lower extremity I70.222
[2022-02-18] MEDS: haloperidol inj 5 mg/mL INJ 1 mL 1 MG IVP (16:33)
--- NOTE | 2022-02-18 21:08 | P.PN_ITS ---
Subjective Subjective: Remembers that she is doing better, but earlier was in pain in her left foot and required Dilaudid. She knows she is in [place], but does not know what building she is and asking am I in trouble? . Does not remember the year. Denies chest pain or pressure. Denies trouble breathing. Vitals/I&O/Wt Last Vital Signs Temp 97.4 F L 02/18/22 19:56 Pulse 90 02/18/22 19:56 Resp 18 02/18/22 19:56 BP 131/76 02/18/22 19:56 Pulse Ox 96 02/18/22 19:56 O2 Del Method 02/18/22 07:32 O2 Flow Rate 2 02/17/22 20:00 02/18/22 02/18/22 02/18/22 06:59 14:59 22:59 Intake Total 340 / 1128 630 / 630 240 / 870 Output Total 300 / 1050 Balance 40 / 78 630 / 630 240 / 870 Weight last 48 hrs Weight 46.629 kg Physical Exam Const: GENERAL APPEARANCE: cooperative and frail appearing ORIENTATION/CONSCIOUSNESS: Yes awake HENMT: COMMON NORMALS: oropharynx normal Neck/C-Spine: COMMON NORMALS: no JVD Resp: COMMON NORMALS: normal respiratory effort and clear to auscultation bilaterally AUSCULTATION: clear to auscultation bilaterally Cardio: COMMON NORMALS: no JVD, regular rhythm, S1 normal heart sound present, S2 normal heart sound present and No murmurs present (Cardio) RHYTHM: regular rhythm HEART SOUNDS: S1 normal heart sound present and S2 normal heart sound present GI: COMMON NORMALS: Normal to inspection, nondistended, normoactive bowel sounds present, Soft to palpation and non-tender PALPATION: Yes Soft to palpation Extremity: COMMON NORMALS: no joint enlargement and no pedal edema OTHER: Cool to touch and mildly purple, pale distal half of L foot Neuro: COMMON NORMALS: moves all extremities Skin: COMMON NORMALS: no rashes or lesions noted GENERAL SKIN EXAM: no rashes or lesions noted Data : 02/18/22 04:55 02/18/22 04:55 A&P Assessment and plan (1) Critical limb ischemia of left lower extremity: As per additional discussion with family by surgery regarding options of management family preferred to proceed with return home with hospice care. Arrangements underway with CM. Continue antiplatelet, anticoagulation and statin. Status: Acute (2) Greater trochanter fracture: Status: Acute (3) Acute encephalopathy: Likely acute encephalopathy on underlying dementia. Status: Acute (4) Cigarette smoker two packs a day or less: Status: Acute (5) Hypothyroidism: Status: Acute (6) HTN (hypertension): Status: Chronic Qualifiers: Hypertension type: essential hypertension Qualified Code(s): I10 - Essential (primary) hypertension (7) Hyperlipidemia: Status: Chronic Qualifiers: Hyperlipidemia type: unspecified Qualified Code(s): E78.5 - Hyperlipidemia, unspecified (8) Atrial fibrillation with RVR: Status: Acute (9) Pulmonary nodule: Status: Acute (10) Fracture of greater trochanter of right femur: Status: Acute Plan History of right greater trochanteric hip fracture Bones are osteopenic. Patient has a known fracture involving the superior RIGHT greater trochanter that was described on 12/02/2021. Fracture line is still evident and slightly as compared to the prior study. No acute fracture line is identified. I favor the fracture that is present on today's examination is the same fracture as before with slight dislocation. No femoral neck or femoral head fractures. Superior and inferior pubic rami are intact. -According to family she is had this history of fracture for some time -Although she does not have any pain complaints, I have not stood her up since her foot ischemia, I do not know her mobility in the right hip, I do not know about her pain complaints in the right hip -According to family she has been mobile at home, quite independent at home -However it does concern me, if she were to have a left below-knee amputation, the mobility of the right hip -I will have physical therapy tentatively work with her, currently physical therapy she is able to bear weight in the right hip without any significant pain Has a slightly spiculated 11 mm nodule left upper lobe: needs to follow-up as outpatient with pulmonary Protein calorie malnutrition High risk of falls Hypertension continue home meds Hyperlipidemia continue meds Hypothyroidism continue home meds A. fib with RVR -Converted back to normal sinus rhythm -Therapeutic Lovenox -Metoprolol 25 mg daily Hypothyroidism, elevated TSH to 10, increased levothyroxine dose to 75 mcg once daily Acute encephalopathy -Possibly progression of underlying dementia, could be encephalopathy possibly metabolic from acute limb ischemia versus sepsis -Although remains afebrile, blood cultures have been unremarkable, no sick leukocytosis -She does have bilateral carotid artery stenosis which possibly could be playing a role -Does have underlying dementia Levothyroxine dose was adjusted. Will need follow-up on hypothyroidism. -CT of the head 1.? No evidence of intracranial hemorrhage or mass effect. 2.? Moderate small vessel changes with moderate parenchymal volume loss. 3.? 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 This is unchanged since the prior MRI in 2017. 4.? Tiny chronic lacunar infarct LEFT thalamus. 5.? No acute intracranial findings. -Carotid artery ultrasound 1. There is elevated flow velocity in the right internal carotid artery suggesting greater than 70% stenosis. 2. There is elevated flow velocity in the left internal carotid artery suggesting between 50 and 69% stenosis. 3. Consider CTA neck to better characterize. -No focal neurologic deficits, no facial droop, no slurring of words, at times does follow commands symptoms seem more global Attestations Medical Necessity Statement*: Continue arrangements for hospice care and arrangements for return home. Coding Level of Care Code Acute Aircraft Engine Mechanic Supervisor for g Fwd Diagnoses Critical limb ischemia of left lower extremity I70.222 Greater trochanter fracture S72.113A Acute encephalopathy G93.40 Cigarette smoker two packs a day or less F17.210 Hypothyroidism E03.9 HTN (hypertension) I10 Hypertension type: essential hypertension Hyperlipidemia E78.5 Hyperlipidemia type: unspecified Atrial fibrillation with RVR I48.91 Pulmonary nodule R91.1 Fracture of greater trochanter of right femur S72.111A
[2022-02-18] MEDS: atorvastatin 40 mg Tablet PO (22:02)
[2022-02-19] VITALS (13 sets, daily range): BP systolic 111–197; BP diastolic 57–88; PULSE 64–122; RESP 15–18; TEMP 36.5–36.7; O2SAT 93–96
[2022-02-19] MEDS: haloperidol inj 5 mg/mL INJ 1 mL 1 MG IVP ×2 (00:01→23:07)
[2022-02-19] MEDS: HYDROmorphone 1 mg/mL INJ 1 mL IVP ×3 (00:18→11:46)
[2022-02-19 01:45] LABS: Basophils # 0.1 10^3/uL (0.0-0.1); Basophils % 0.7 %; Eosinophils # 0.2 10^3/uL (0.0-0.8); Eosinophils % 3.2 %; Hematocrit 41.4 % (37.0-47.0); Hemoglobin 13.5 g/dL (11.5-15.3); Lymphocytes # 1.8 10^3/uL (0.8-4.8); Lymphocytes % 26.2 %; Mean Corpuscular HGB Conc 32.6 g/dL (30.0-36.0); Mean Corpuscular Volume 95.2 fl (81-99); Mean Platelet Volume 11.7 fL (7.4-10.4); Monocytes # 0.6 10^3/uL (0.2-0.9); Monocytes % 9.3 %; Neutrophils # 4.14 10^3/uL (1.8-7.7); Neutrophils % 60.3 %; Nucleated Red Blood Cells % 0 %; Platelet Count 137 10^3/cmm (130-400); Red Blood Count 4.35 10^6/uL (4.1-5.3); Red Cell Distribution Width 13.3 % (12.1-15.1); White Blood Count 6.9 10^3/uL (4.0-10.0)
[2022-02-19 01:56] LABS: INR 0.99 (0.8-1.2)
[2022-02-19 02:07] LABS: Lactate (Lactic Acid level) 0.7 mmol/L (0.5-2.2)
[2022-02-19 02:10] LABS: Vancomycin Trough 11.8 ug/mL (10-15)
[2022-02-19 02:16] LABS: Alanine Aminotransferase 11 U/L (0-33); Albumin Level 3.3 g/dL (3.5-5.2); Alkaline Phosphatase 76 IU/L (35-105); Anion Gap 13.9 (5-19); Aspartate Amino Transferase 27 U/L (0-32); Blood Urea Nitrogen 16 mg/dL (8-23); Calcium 9.2 mg/dL (8.5-10.5); Carbon Dioxide 29 mmol/L (22-29); Chloride 102 mmol/L (98-107); Creatine Phosphokinase 304 U/L (26-192); Globulin 2.7 g/dL (1.3-4.6); Glucose 111 mg/dL (65-115); NT Pro B Type Natriuretic Pept 467 pg/mL (0-450); Osmolality Calculated 294 mOsm/kg (285-295); Phosphorus 3.7 mg/dL (2.5-4.5); Potassium 3.9 mmol/L (3.5-5.1); Sodium 141 mmol/L (136-145); Total Bilirubin 0.4 mg/dL (0.15-1.2)
[2022-02-19] MEDS: vancomycin 750 MG in sodium chloride 0.9% 250 ML 250 MG IV ×2 (03:11→21:50)
[2022-02-19] MEDS: levothyroxine 75 mcg Tablet PO (05:19)
[2022-02-19] MEDS: cilostazol 100 mg Tablet 50 MG PO ×2 (08:14→17:46)
[2022-02-19] MEDS: apixaban 5 mg Tablet 2.5 MG PO ×2 (08:14→20:40)
[2022-02-19] MEDS: metoprolol tartrate 25 mg Tablet PO (10:03)
--- NOTE | 2022-02-19 15:12 | PC.OT ---
per doctor; can discharge skilled OT orders as hospice is being consulted
--- NOTE | 2022-02-19 15:50 | PC.NURSE ---
Physician orders: Stop dilaudid IVP start Dilaudid PO Q4H for pain
[2022-02-19] MEDS: pantoprazole 40 mg SDV IVP (15:57)
--- NOTE | 2022-02-19 19:54 | PM.PN ---
Vitals/I&O/Wt Last Vital Signs Temp 98.0 F 02/19/22 19:50 Pulse 84 02/19/22 19:50 Resp 17 02/19/22 19:50 BP 197/57 02/19/22 19:50 Pulse Ox 96 02/19/22 19:50 O2 Del Method 02/18/22 07:32 O2 Flow Rate 2 02/17/22 20:00 02/19/22 02/19/22 02/19/22 06:59 14:59 22:59 Intake Total 350 / 1820 100 / 100 100 / 200 Output Total 450 / 1950 Balance -100 / -130 100 / 100 100 / 200 Weight last 48 hrs Weight 46.629 kg Physical Exam Const: GENERAL APPEARANCE: cooperative and frail appearing ORIENTATION/CONSCIOUSNESS: Yes awake OTHER: Asleep HENMT: COMMON NORMALS: oropharynx normal Neck/C-Spine: COMMON NORMALS: no JVD Resp: COMMON NORMALS: normal respiratory effort and clear to auscultation bilaterally AUSCULTATION: clear to auscultation bilaterally Cardio: COMMON NORMALS: no JVD, regular rhythm, S1 normal heart sound present, S2 normal heart sound present and No murmurs present (Cardio) RHYTHM: regular rhythm HEART SOUNDS: S1 normal heart sound present and S2 normal heart sound present GI: COMMON NORMALS: Normal to inspection, nondistended, normoactive bowel sounds present, Soft to palpation and non-tender PALPATION: Yes Soft to palpation Extremity: COMMON NORMALS: no joint enlargement and no pedal edema OTHER: Cool to touch and mildly purple, pale distal half of L foot Neuro: COMMON NORMALS: moves all extremities Skin: COMMON NORMALS: no rashes or lesions noted GENERAL SKIN EXAM: no rashes or lesions noted Data : 02/19/22 01:35 02/19/22 01:35 Micro: Microbiology 02/14/22 15:15 Blood Culture - Final Blood NO GROWTH AFTER 5 DAYS 02/14/22 15:20 Blood Culture - Final Blood NO GROWTH AFTER 5 DAYS A&P Assessment and plan (1) Critical limb ischemia of left lower extremity: Family would like for her to be at home in familiar surroundings and close to family. They realize that with dementia and her age she does not have much time left with her health. Their concern is that proceeding with amputation would lead her to end up in a facility with concern of fall and further harm. As well with spiculated nodule family state performing amputation with surgery and going to take away her dignity. They understand that under more aggressive circumstances amputation would absolutely be the route to proceed, however, given her condition as well as quality and comfort of life consideration, they again reaffirmed her choice to return home with hospice. Discussed with family that we will work with case management for the arrangements. Continue pain control. Continue antiplatelet, anticoagulation and statin. Status: Acute (2) Greater trochanter fracture: Status: Acute (3) Acute encephalopathy: Likely acute encephalopathy on underlying dementia. Status: Acute (4) Cigarette smoker two packs a day or less: Status: Acute (5) Hypothyroidism: Status: Acute (6) HTN (hypertension): Status: Chronic Qualifiers: Hypertension type: essential hypertension Qualified Code(s): I10 - Essential (primary) hypertension (7) Hyperlipidemia: Status: Chronic Qualifiers: Hyperlipidemia type: unspecified Qualified Code(s): E78.5 - Hyperlipidemia, unspecified (8) Atrial fibrillation with RVR: Status: Acute (9) Pulmonary nodule: Status: Acute (10) Fracture of greater trochanter of right femur: Status: Acute Plan History of right greater trochanteric hip fracture Bones are osteopenic. Patient has a known fracture involving the superior RIGHT greater trochanter that was described on 12/02/2021. Fracture line is still evident and slightly as compared to the prior study. No acute fracture line is identified. I favor the fracture that is present on today's examination is the same fracture as before with slight dislocation. No femoral neck or femoral head fractures. Superior and inferior pubic rami are intact. -According to family she is had this history of fracture for some time -Although she does not have any pain complaints, I have not stood her up since her foot ischemia, I do not know her mobility in the right hip, I do not know about her pain complaints in the right hip -According to family she has been mobile at home, quite independent at home -However it does concern me, if she were to have a left below-knee amputation, the mobility of the right hip -I will have physical therapy tentatively work with her, currently physical therapy she is able to bear weight in the right hip without any significant pain Has a slightly spiculated 11 mm nodule left upper lobe: needs to follow-up as outpatient with pulmonary Protein calorie malnutrition High risk of falls Hypertension continue home meds Hyperlipidemia continue meds Hypothyroidism continue home meds A. fib with RVR -Converted back to normal sinus rhythm -Therapeutic Lovenox -Metoprolol 25 mg daily Hypothyroidism, elevated TSH to 10, increased levothyroxine dose to 75 mcg once daily Acute encephalopathy -Possibly progression of underlying dementia, could be encephalopathy possibly metabolic from acute limb ischemia versus sepsis -Although remains afebrile, blood cultures have been unremarkable, no sick leukocytosis -She does have bilateral carotid artery stenosis which possibly could be playing a role -Does have underlying dementia Levothyroxine dose was adjusted. Will need follow-up on hypothyroidism. -CT of the head 1.? No evidence of intracranial hemorrhage or mass effect. 2.? Moderate small vessel changes with moderate parenchymal volume loss. 3.? 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 This is unchanged since the prior MRI in 2017. 4.? Tiny chronic lacunar infarct LEFT thalamus. 5.? No acute intracranial findings. -Carotid artery ultrasound 1. There is elevated flow velocity in the right internal carotid artery suggesting greater than 70% stenosis. 2. There is elevated flow velocity in the left internal carotid artery suggesting between 50 and 69% stenosis. 3. Consider CTA neck to better characterize. -No focal neurologic deficits, no facial droop, no slurring of words, at times does follow commands symptoms seem more global Attestations Medical Necessity Statement*: Continue admission for post discharge planning and hospice arrangements. Coding Level of Care Code Acute Judicial Registrar for [facility] Fwd Diagnoses Critical limb ischemia of left lower extremity I70.222 Greater trochanter fracture S72.113A Acute encephalopathy G93.40 Cigarette smoker two packs a day or less F17.210 Hypothyroidism E03.9 HTN (hypertension) I10 Hypertension type: essential hypertension Hyperlipidemia E78.5 Hyperlipidemia type: unspecified Atrial fibrillation with RVR I48.91 Pulmonary nodule R91.1 Fracture of greater trochanter of right femur S72.111A
[2022-02-19] MEDS: atorvastatin 40 mg Tablet PO (20:39)
[2022-02-20] VITALS (7 sets, daily range): BP systolic 104–178; BP diastolic 65–68; PULSE 87–122; RESP 16–20; TEMP 36.6–36.8; O2SAT 93–94
--- NOTE | 2022-02-20 08:14 | PM.PN ---
Subjective Subjective: Carine is essentially unchanged this morning. She is asleep. Apparently the family has declined amputation and wishes to take her home with hospice. Vitals/I&O/Wt Last Vital Signs Temp 98 F 02/20/22 07:45 Pulse 87 02/20/22 07:45 Resp 18 02/20/22 07:45 BP 178/68 02/20/22 07:45 Pulse Ox 93 02/20/22 07:45 O2 Del Method 02/20/22 07:45 O2 Flow Rate 2 02/17/22 20:00 02/19/22 02/20/22 02/20/22 22:59 06:59 14:59 Intake Total 200 / 300 0 / 300 Output Total 1610 / 1610 Balance 200 / 300 -1610 / -1310 Physical Exam Narrative: GENERAL: She is asleep this morning HEENT: Exam within normal limits. NECK: Supple without jugular vein distention. The carotid upstroke is normal without bruits. BACK: Exam normal. LUNGS: Clear. HEART: Regular rate and rhythm. ABDOMEN: Benign without organomegaly or tenderness. EXTREMITIES: No edema. The left foot looks the same. It is slightly cooler than the right foot, slightly discolored without pulses. NEUROLOGIC: Exam normal. SKIN: Unremarkable. Data : 02/19/22 01:35 02/19/22 01:35 Micro: Microbiology 02/14/22 15:15 Blood Culture - Final Blood NO GROWTH AFTER 5 DAYS 02/14/22 15:20 Blood Culture - Final Blood NO GROWTH AFTER 5 DAYS A&P Assessment and plan (1) Fracture of greater trochanter of right femur: Status: Acute (2) Pulmonary nodule: Status: Acute (3) Acute encephalopathy: Status: Acute (4) Atrial fibrillation with RVR: Status: Acute (5) Critical limb ischemia of left lower extremity: Status: Acute (6) Non-compliant patient: Status: Acute (7) Carotid artery disease: Status: Acute (8) Cigarette smoker two packs a day or less: Status: Acute (9) HTN (hypertension): Status: Chronic Qualifiers: Hypertension type: essential hypertension Qualified Code(s): I10 - Essential (primary) hypertension (10) Hyperlipidemia: Status: Chronic Qualifiers: Hyperlipidemia type: unspecified Qualified Code(s): E78.5 - Hyperlipidemia, unspecified Plan Plan is to send her home with hospice at the family's request. She remains on Eliquis and cilostazol. If we are not going to treat her aggressively I do not feel strongly about the Eliquis. Given her overall physical condition and the social situation at home it may be better to stop the Eliquis. She is at fairly high risk for falling since she cannot walk very well on the leg. Perhaps just cilostazol alone would be the best choice. Attestations Medical Necessity Statement*: Should be ready to go home. Coding Level of Care Code Established Pt Acute Borough Coordinator for [facility] Fwd Patient Type Established History Detailed Exam Detailed Medical Decision Making Moderate Complexity Diagnoses Fracture of greater trochanter of right femur S72.111A Pulmonary nodule R91.1 Acute encephalopathy G93.40 Atrial fibrillation with RVR I48.91 Critical limb ischemia of left lower extremity I70.222 Non-compliant patient Z91.19 Carotid artery disease I77.9 Cigarette smoker two packs a day or less F17.210 HTN (hypertension) I10 Hypertension type: essential hypertension Hyperlipidemia E78.5 Hyperlipidemia type: unspecified
--- NOTE | 2022-02-20 09:10 | PC.SOCIAL ---
IMM update IMM updated with patient. Verbalized an understanding. Copy Pg 2 provided. Initialled, dated, timed, and placed in chart
[2022-02-20] MEDS: levothyroxine 75 mcg Tablet PO (09:15)
[2022-02-20] MEDS: apixaban 5 mg Tablet 2.5 MG PO (09:15)
[2022-02-20] MEDS: cilostazol 100 mg Tablet 50 MG PO (09:15)
[2022-02-20] MEDS: haloperidol inj 5 mg/mL INJ 1 mL 1 MG IVP (10:30)
--- NOTE | 2022-02-20 12:16 | P.DS_ITS ---
Discharge Providers Date of Admission: 02/13/22 17:03 Date of Discharge: February 20, 2022 Attending Provider at Admission: Quinton Villalba MD Attending Provider at Discharge: Marlon Salazar Primary Care Provider: JUAN Hood Diagnoses at Discharge Discharge Diagnosis (1) Fracture of greater trochanter of right femur: Status: Acute (2) Pulmonary nodule: Status: Acute (3) Acute encephalopathy: Status: Acute (4) Atrial fibrillation with RVR: Status: Acute (5) Critical limb ischemia of left lower extremity: Status: Acute (6) Non-compliant patient: Status: Acute (7) Carotid artery disease: Status: Acute (8) Cigarette smoker two packs a day or less: Status: Acute (9) HTN (hypertension): Status: Chronic Qualifiers: Hypertension type: essential hypertension Qualified Code(s): I10 - Essential (primary) hypertension (10) Hyperlipidemia: Status: Chronic Qualifiers: Hyperlipidemia type: unspecified Qualified Code(s): E78.5 - Hyperlipidemia, unspecified Reason for Visit Reason for Visit: L FOOT/TOE PAIN, PERIPHERAL VASCULAR DZ Hospital Course Hospital Course 81-year-old lady with smoking history, with vascular disease with AAA, carotid artery disease, history of CVA, peripheral artery disease with history of iliac stenting, multiple peripheral angiograms, also with HTN, HLD, hypothyroidism was admitted due to acute on chronic left lower extremity ischemia. She was assessed by interventional cardiology, underwent angiographic evaluation with finding of subacute closure of the left common iliac and left external iliac arteries causing loss of collateral flow to distal left lower extremity and critical limb ischemia of left foot. 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 With recommendation for BKA. She was assessed also by surgery team with this consideration. In the meantime she was continued on anticoag ulation, antiplatelet medications with aspirin, cilostazol. Continue on statin. Pain control. She herself unfortunately due to dementia he is unable to participate in decisions about her care. She is also at elevated risk of fall, and was noted chronic right hip fracture. Difficult social situation, and limited goals of care, on multiple discussions with follow-up during hospitalization, in light of limited functional capacity, dementia, risk of falling and likely need for discharge to a facility after hospitalization, as well as with noted incidentally suspicious appearing spiculated nodule 11 mm in size in the left upper lobe, after thorough consideration family elected not to proceed with amputation preferring instead to return home with hospice where they feel she will be most comfortable with her surroundings and be able to spend time with family in dignity. She is continued on cilostazol and aspirin. Eliquis is discontinued so as to reduce bleeding risk avoiding triple therapy. For atrial fibrillation she was treated with metoprolol while in the hospital. Due to occasional bradycardia dose is decreased to 12.5 mg. Incidentally noted TSH elevation, 10. Levothyroxine 75 mcg. Please follow-up thyroid function. Physical Exam Const: GENERAL APPEARANCE: cooperative and frail appearing ORIENTATION/CONSCIOUSNESS: Yes awake HENMT: COMMON NORMALS: oropharynx normal Neck/C-Spine: COMMON NORMALS: no JVD Resp: COMMON NORMALS: normal respiratory effort and clear to auscultation bilaterally AUSCULTATION: clear to auscultation bilaterally Cardio: COMMON NORMALS: no JVD, regular rhythm, S1 normal heart sound present, S2 normal heart sound present and No murmurs present (Cardio) RHYTHM: regular rhythm HEART SOUNDS: S1 normal heart sound present and S2 normal heart sound present GI: COMMON NORMALS: Normal to inspection, nondistended, normoactive bowel sounds present, Soft to palpation and non-tender PALPATION: Yes Soft to palpation Extremity: COMMON NORMALS: no joint enlargement and no pedal edema OTHER: Cool to touch and mildly purple, pale distal L foot Neuro: COMMON NORMALS: moves all extremities Skin: COMMON NORMALS: no rashes or lesions noted GENERAL SKIN EXAM: no rashes or lesions noted Discharge Data Studies Completed and Pending Completed Studies During Hospitalization Category Date Time Status CT angio chest PE protcl [id number] Stat Cat Scan 02/14/22 14:[address] bony pelvis [id number] Routine Cat Scan 02/14/22 11:[address] head wo con* [id number] Stat Cat Scan 02/14/22 10:25 Completed DUE DILIGENCE COORDINATOR request for service Routine Exams 02/13/22 14:16 Completed XR chest 1V portable [id number] Routine Exams 02/14/22 11:39 Completed CV carotid duplex BI* [id number] Routine Ultrasound 02/15/22 10:26 Completed CV. echo complete* [id number] Routine Ultrasound 02/15/22 10:25 Completed US arterial duplex lower extremity LT [CV arterial Ultrasound 02/13/22 11:24 [place] [id number]] Urgent Radiology Impressions Head CT 02/14/22 10:25 IMPRESSION: 1. No evidence of intracranial hemorrhage or mass effect. 2. Moderate small vessel changes with moderate parenchymal volume loss. 3. 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 This is unchanged since the prior MRI in 2017. 4. Tiny chronic lacunar infarct LEFT thalamus. 5. No acute intracranial findings. Chest X-Ray 02/14/22 11:39 IMPRESSION: 1. Chronic interstitial changes throughout both lungs. 2. Ill-defined 2 cm nodular density in the upper left lobe. Pulmonary neoplasm or metastatic disease not excluded. Pelvis CT 02/14/22 11:46 IMPRESSION: 1. No acute pelvic fracture. 2. Remote fracture involving the superior RIGHT greater trochanter is reidentified. Mild displacement along the fracture line since 12/02/2021. Chest CTA 02/14/22 14:22 IMPRESSION: 1. No pulmonary embolism. 2. Slightly spiculated 11 mm nodule LEFT upper lobe needs further evaluation. Recommend PET/CT imaging or [address] follow-up 3. No pneumonia. 4. Centrilobular emphysema and mild CHF. 5. Moderate LEFT heart enlargement. Carotid Doppler Study 02/15/22 10:26 IMPRESSION: 1. There is elevated flow velocity in the right internal carotid artery suggesting greater than 70% stenosis. 2. There is elevated flow velocity in the left internal carotid artery suggesting between 50 and 69% stenosis. 3. Consider CTA neck to better characterize. REFERENCES: SRU CRITERIA. The degree of internal carotid artery stenosis is based on criteria defined by the Society of Radiologists in Ultrasound (SRU). Normal is no stenosis. Mild is less than 50% stenosis. Moderate is 50-69% stenosis. Severe is greater than 69% stenosis to near occlusion. Near occlusion is a markedly narrowed lumen. Total occlusion is no detectable patent lumen. Laboratory Results WBC 6.9 10^3/uL (4.0-10.0) 02/19/22 01:35 RBC 4.35 10^6/uL (4.1-5.3) 02/19/22 01:35 Hgb 13.5 g/dL (11.5-15.3) 02/19/22 01:35 Hct 41.4 % (37.0-47.0) 02/19/22 01:35 MCV 95.2 fl (81-99) 02/19/22 01:35 MCH 31.0 pg (28.0-34.0) 02/19/22 01:35 MCHC 32.6 g/dL (30.0-36.0) 02/19/22 01:35 RDW 13.3 % (12.1-15.1) 02/19/22 01:35 Plt Count 137 10^3/cmm (130-400) 02/19/22 01:35 MPV 11.7 fL (7.4-10.4) H 02/19/22 01:35 Neut % (Auto) 60.3 % 02/19/22 01:35 Lymph % (Auto) 26.2 % 02/19/22 01:35 [place] % (Auto) 9.3 % 02/19/22 01:35 Eos % (Auto) 3.2 % 02/19/22 01:35 Baso % (Auto) 0.7 % 02/19/22 01:35 Neut # (Auto) 4.14 10^3/uL (1.8-7.7) 02/19/22 01:35 Lymph # (Auto) 1.8 10^3/uL (0.8-4.8) 02/19/22 01:35 [place] # (Auto) 0.6 10^3/uL (0.2-0.9) 02/19/22 01:35 Eos # (Auto) 0.2 10^3/uL (0.0-0.8) 02/19/22 01:35 Baso # (Auto) 0.1 10^3/uL (0.0-0.1) 02/19/22 01:35 Nucleated RBC % (auto) 0 % 02/19/22 01:35 Nucleated RBCs # 0.0 /100WBC 02/19/22 01:35 ESR 10 mm/hr (0-15) 02/14/22 03:31 PT 13.40 SECONDS (12.1-14.9) 02/19/22 01:35 INR 0.99 (0.8-1.2) 02/19/22 01:35 APTT 57.4 SECONDS (23.9-36.7) H 02/15/22 08:00 D-Dimer 1.08 ug/mIFEU (0-0.59) H 02/14/22 15:15 Sodium 141 mmol/L (136-145) 02/19/22 01:35 Potassium 3.9 mmol/L (3.5-5.1) 02/19/22 01:35 Chloride 102 mmol/L (98-107) 02/19/22 01:35 Carbon Dioxide 29 mmol/L (22-29) 02/19/22 01:35 Anion Gap 13.9 (5-19) 02/19/22 01:35 BUN 16 mg/dL (8-23) 02/19/22 01:35 Creatinine 0.8 mg/dL (0.5-0.9) 02/19/22 01:35 GFR Calculation Not Reportable 02/19/22 01:35 Glucose 111 mg/dL (65-115) 02/19/22 01:35 Calculated Osmolality 294 mOsm/kg (285-295) 02/19/22 01:35 Lactic Acid 0.5 mmol/L (0.5-2.2) 02/13/22 17:43 Lactate 0.7 mmol/L (0.5-2.2) 02/19/22 01:35 Calcium 9.2 mg/dL (8.5-10.5) 02/19/22 01:35 Phosphorus 3.7 mg/dL (2.5-4.5) 02/19/22 01:35 Magnesium 2.0 mg/dL (1.7-2.3) 02/19/22 01:35 Total Bilirubin 0.4 mg/dL (0.15-1.2) 02/19/22 01:35 AST 27 U/L (0-32) 02/19/22 01:35 ALT 11 U/L (0-33) 02/19/22 01:35 Alkaline Phosphatase 76 IU/L (35-105) 02/19/22 01:35 Creatine Kinase 304 U/L (26-192) H 02/19/22 01:35 Creatine Kinase Cancelled 02/19/22 01:35 CK-MB (CK-2) 9.6 ng/mL (0-5.34) H 02/17/22 04:13 CK-MB (CK-2) Rel Index 2.9 % (0.0-10.4) 02/17/22 04:13 Troponin T Baseline 41 ng/L (0-10) H 02/14/22 13:09 Troponin T 120 Minute 33.35 ng/L (0-10) H 02/14/22 15:20 Delta Troponin T -7.65 ABS# (0-10) L 02/14/22 15:20 Troponin T Hi Sens 6Hr 42.59 ng/L (0-10) H 02/14/22 18:40 Troponin T Hi Sens 6Hr Delta 1.59 ng/L (0-12) 02/14/22 18:40 C-Reactive Protein 3.0 mg/L (0.0-4.9) 02/19/22 01:35 NT-Pro-B Natriuret Pep 467 pg/mL (0-450) H 02/19/22 01:35 NT-Pro-B Natriuret Pep Cancelled 02/19/22 01:35 Total Protein 6.0 g/dL (6.6-8.7) L 02/19/22 01:35 Albumin 3.3 g/dL (3.5-5.2) L 02/19/22 01:35 Globulin 2.7 g/dL (1.3-4.6) 02/19/22 01:35 Procalcitonin 0.04 ng/mL (0-0.5) 02/14/22 13:09 TSH 10.19 uIU/mL (0.27-4.20) H 02/14/22 13:09 Vancomycin Trough 11.8 ug/mL (10-15) 02/19/22 01:35 Vitals Last Vital Signs Temp 98.3 F 02/20/22 11:52 Pulse 118 H 02/20/22 11:52 Resp 20 H 02/20/22 11:52 BP 104/65 02/20/22 11:52 Pulse Ox 93 02/20/22 11:52 O2 Del Method 02/20/22 07:45 O2 Flow Rate 2 02/17/22 20:00 Discharge Plan Discharge Patient Disposition: Hospice - Home Condition: Stable Prescriptions: New atorvastatin 40 mg Tablet 40 mg PO BEDTIME Qty: 90 0RF levothyroxine 75 mcg Tablet 75 mcg PO QAM Qty: 90 0RF hydromorphone 2 mg tablet 2 mg PO Q4H PRN (Reason: pain) Qty: 15 0RF metoprolol tartrate 25 mg tablet 12.5 mg PO BID Qty: 90 0RF Continued cilostazol 50 mg tablet 50 mg PO BID Qty: 30 6RF Discontinued tramadol 50 mg tablet 50 mg PO TID PRN (Reason: pain) Qty: 60 0RF Discharge Orders: Discharge Order (Routine); Ordered 02/20/22 Ordered By: Marlon Salazar Referrals: Estephania Young FNP [Primary Care Provider] - 4-7 days Discharge Diet: As Directed Discharge Activity: Increase activity as tolerated Patient Instructions: Aspirin (By mouth), Hydromorphone (By mouth), Atorvastatin (By mouth), Cilostazol (By mouth), How to Stop Smoking (GEN), Hospice Care (GEN), Peripheral Artery Disease (GEN), Peripheral Vascular Angioplasty (DC), Fall Prevention (GEN), Level 2 National Dysphagia Diet (GEN), Aspiration Precautions (GEN) Activity Restrictions/Additional Instructions: Prevent falls at all costs. Maintain aspiration precautions. Continue dysphagia diet with ground solids. Please make sure to stop smoking. Continued smoking increases risk of clotting and closure of blood vessels in your foot. Please have your primary doctor reassess your thyroid function due to hypothyroidism. Discuss with your primary doctor incidentally seen on imaging spiculated 11 mm nodule in your left upper lung suspicious for possible malignancy. Discharge Attestations Time Spent in Discharge Care*: greater than 30 min Status at Discharge: Cognitive status at discharge: cognitively intact , Behavioral status at discharge: cooperative , Quality Metrics Clinical Quality Measures [ No reported AMI, CVA or VTE this stay] Coding Level of Care Code Acute Chg FW DC note Diagnoses Fracture of greater trochanter of right femur S72.111A Pulmonary nodule R91.1 Acute encephalopathy G93.40 Atrial fibrillation with RVR I48.91 Critical limb ischemia of left lower extremity I70.222 Non-compliant patient Z91.19 Carotid artery disease I77.9 Cigarette smoker two packs a day or less F17.210 HTN (hypertension) I10 Hypertension type: essential hypertension Hyperlipidemia E78.5 Hyperlipidemia type: unspecified
--- NOTE | 2022-02-20 16:02 | PC.NURSE ---
pt left via ambulance to private residence on hospice. iv and olmedo dc'd prior to discharge. Pts family called and notified of pts depart from hospital. they are waiting at home for her arrival, hospital bed delivered today. hospice staff will be at the residence today to start admission.
== END 2022-02-20 15:20 | disposition hospice, home (50) | DRG 299 ==
LOC: ER 12:34 → CCL 14:04 → MEDSURG 02-14 09:34
PROVIDERS: Family Medicine; Admitting Provider Internal Medicine Cardiovascular Disease; Emergency Provider Physician Assistant; PCP Registered Nurse; Visit Provider Internal Medicine
PROC: B41DYZZ Fluoroscopy of Aorta and Bilateral Lower Extremity Arteries using Other Contrast (ICD-10-PCS; principal; 2022-02-13 14:00)
DX: I70.222 Atherosclerosis of native arteries of extremities with rest pain, left leg (principal); G93.41 Metabolic encephalopathy; E44.0 Moderate protein-calorie malnutrition; Z68.1 Body mass index [BMI] 19.9 or less, adult; Z91.19 Patient's noncompliance with other medical treatment and regimen; F17.210 Nicotine dependence, cigarettes, uncomplicated; F03.90 Unspecified dementia, unspecified severity, without behavioral disturbance, psychotic disturbance, mood disturbance, and anxiety; Z95.820 Peripheral vascular angioplasty status with implants and grafts; I25.10 Atherosclerotic heart disease of native coronary artery without angina pectoris; I10 Essential (primary) hypertension; Z86.73 Personal history of transient ischemic attack (TIA), and cerebral infarction without residual deficits; I65.23 Occlusion and stenosis of bilateral carotid arteries; G89.29 Other chronic pain; M54.50 Low back pain, unspecified; I71.4 Abdominal aortic aneurysm, without rupture; J43.9 Emphysema, unspecified; R91.8 Other nonspecific abnormal finding of lung field; I48.91 Unspecified atrial fibrillation; M62.84 Sarcopenia
CPT/HCPCS: 36415; 70450; 71045; 71275; 72192; 75625; 80053; 80202; 82550; 82553; 83605; 83735; 83880; 84100; 84145; 84443; 84484; 85025; 85378; 85610; 85651; 85730; 86140; 87040; 87641; 92523; 92610; 93005; 93306; 93880; 93926; 94664; 94760; 96360; 96372; 96374; 96375; 97110; 97161; 97530; 99152; 99153; 99285; C1769; C1887; C1894; C9113; J0743; J1170; J1630; J1644; J1650; J1885; J1940; J2250; J2270; J3010; J3370; J3475; J7030; J7050; Q9967